=== PATIENT | female | born 1980 | race Caucasian/White ===

== ENCOUNTER 2016-09-10 13:34 | Inpatient (IN) | payer OTHER, SELFPAY ==
[2016-09-10] MEDS ORDERED: Sodium Chloride 0.9% 2.5 ML Syringe FLUSH PRN (13:58)
[2016-09-10] MEDS ORDERED: Sodium Chloride 0.9% 10 ML Syringe FLUSH PRN (13:58)
[2016-09-10] MEDS ORDERED: Sodium Chloride 0.9% 1,000 ML IV ONE ×2 (14:03→17:21)
--- NOTE | 2016-09-10 14:07 | PCM.SN ---
- Free Text/Narrative Note: Called for PIV placement. Pt has a long and active IV drug use history. 20g PIV started to Lt upper arm. 8mL of blood was drawn for lab draw. Secured with tape and tegaderm.
--- NOTE | 2016-09-10 14:10 | EDM.PDOC ---
ED HPI GENERAL MEDICAL PROBLEM - General Chief Complaint: Chest Pain Stated Complaint: UNK Time Seen by Provider: 09/10/16 13:40 Source of Information: Reports: Patient History Limitations: Reports: No Limitations - History of Present Illness INITIAL COMMENTS - FREE TEXT/NARRATIVE: History of present illness: Patient resulting today with complaints of palpitations and chest pain. Patient acknowledges that she did have meth approximately 12 hours ago but currently is not taking any. Patient indicates she thinks that she might have infection in her blood she indicates she thinks she has staff. Review of systems: As per history of present illness and below otherwise all systems reviewed and negative. Past medical history: As per history of present illness and as reviewed below otherwise noncontributory. Surgical history: As per history of present illness and as reviewed below otherwise noncontributory. Social history: No reported history of drug or alcohol abuse. Family history: As per history of present illness and as reviewed below otherwise noncontributory. Physical exam: HEENT: Atraumatic, normocephalic, pupils reactive, negative for conjunctival pallor or scleral icterus, mucous membranes moist, throat clear, neck supple, nontender, trachea midline. Lungs: Clear to auscultation, breath sounds equal bilaterally, chest nontender. Heart: S1S2, regular, negative for clicks, rubs, or JVD. Abdomen: Soft, nondistended, nontender. Negative for masses or hepatosplenomegaly. Negative for costovertebral tenderness. Pelvis: Stable nontender. Genitourinary: Deferred. Rectal: Deferred. Extremities: Atraumatic, negative for cords or calf pain. Neurovascular unremarkable. Neuro: Awake, alert, oriented. Cranial nerves II through XII unremarkable. Cerebellum unremarkable. Motor and sensory unremarkable throughout. Exam nonfocal. Diagnostics: [CBC, CMP, troponin, EKG, lactate, amylase, lipase, chest x-ray] Therapeutics: [IV fluid] Impression: [Leukocytosis, positive lactate, r/o sepsis r/o endocarditis] Plan: [admit to observation ] Definitive disposition and diagnosis as appropriate pending reevaluation and review of above. Back between shoulders Pain Score (Numeric/FACES): 5 - Related Data Allergies Allergy/AdvReac Type Severity Reaction Status Date / Time codeine Allergy Shortness Verified 09/10/16 13:47 of Breath Penicillins Allergy Anaphylactic Verified 09/10/16 13:47 Shock sulfamethoxazole Allergy Hives Verified 09/10/16 13:47 [From Bactrim] trimethoprim [From Bactrim] Allergy Hives Verified 09/10/16 13:47 Home Meds: Home Meds Insulin Aspart [Novolog] 0 unit SQ DAILY 09/10/16 [History] Past Medical History HEENT History: Reports: Other (See Below) Other HEENT History: missing teeth Cardiovascular History: Reports: Bacterial Endocarditis, Cardiomyopathy, CO, Other (See Below) Other Cardiovascular History: Mitral Valve Prolapse Respiratory History: Reports: None Gastrointestinal History: Reports: Cholelithiasis Other Genitourinary History: polycystic kidney disease [employer] History: Reports: None Musculoskeletal History: Reports: Other (See Below) Other Musculoskeletal History: chronic hip pain Neurological History: Reports: Seizure Psychiatric History: Reports: Addiction Endocrine/Metabolic History: Reports: Diabetes, Type I Hematologic History: Reports: None, Other (See Below) Other Hematologic History: pt reports low white blood cell count Oncologic (Cancer) History: Reports: Breast Dermatologic History: Reports: Cellulitis, Chronic Cellulitis - Infectious Disease History Infectious Disease History: Reports: MRSA, Other (See Below) Other Infectious Disease History: MRSS - Past Surgical History Head Surgeries/Procedures: Reports: None Female Surgical History: Reports: Ureteral Stent Oncologic Surgical History: Reports: Lumpectomy Other Oncologic Surgeries/Procedures: left breast lumpectomy Social & Family History - Family History Family Medical History: Noncontributory - Tobacco Use Smoking Status *Q: Current Every Day Smoker Years of Tobacco use: 20 Packs/Tins Daily: 1 - Recreational Drug Use Recreational Drug Use: Yes Drug Use in Last 12 Months: Yes Recreational Drug Type: Reports: Heroin, Methamphetamine Recreational Drug Use Frequency: Daily Recreational Drug Last Use: pt reports coming off opiates 6 days ago ED ROS GENERAL - Review of Systems Review Of Systems: See Below (See history of present illness) ED EXAM, GENERAL - Physical Exam Exam: See Below (See history of present illness) Course - Vital Signs Last Recorded V/S: Last Vital Signs Temp 37.2 C 09/10/16 13:48 Pulse 120 H 09/10/16 13:48 Resp 20 09/10/16 13:48 BP 142/91 H 09/10/16 13:48 Pulse Ox 100 09/10/16 13:48 - Orders/Labs/Meds Orders: Active Orders 24 hr Category Date Time Status Cardiac Monitoring [RC] . DIRECTED Care 09/10/16 13:58 Active EKG Documentation Completion [RC] STAT Care 09/10/16 13:58 Active Oxygen Therapy [RC] ASDIRECTED Care 09/10/16 13:58 Active Pulse Oximetry [RC] ASDIRECTED Care 09/10/16 13:58 Active Chest 1V Frontal [CR] Stat Exams 09/10/16 13:58 Ordered CULTURE BLOOD [BC] Stat Lab 09/10/16 14:27 Received CULTURE BLOOD [BC] Stat Lab 09/10/16 15:09 Received HCG QUALITATIVE,SERUM [CHEM] Stat Lab 09/10/16 15:23 Ordered UA W/MICROSCOPIC [URIN] Stat Lab 09/10/16 13:58 Uncollected Sodium Chloride 0.9% [Saline Flush] Med 09/10/16 13:58 Active 10 ml FLUSH ASDIRECTED PRN Sodium Chloride 0.9% [Saline Flush] Med 09/10/16 13:58 Active 2.5 ml FLUSH ASDIRECTED PRN Vancomycin [Vancocin] 1 gm Med 09/10/16 14:48 Active Sodium Chloride 0.9% [Normal Saline] 250 ml IV ONETIME Blood Culture x2 Reflex Set [OM.PC] Stat Oth 09/10/16 14:47 Ordered Saline Lock Insert [OM.PC] Stat Oth 09/10/16 13:58 Ordered Medication Orders Vancomycin HCl 1 gm/ Sodium (Chloride) 250 mls @ 250 mls/hr IV ONETIME ONE Stop: 09/10/16 15:47 Sodium Chloride (Saline Flush) 10 ml FLUSH ASDIRECTED PRN PRN Reason: Keep Vein Open Sodium Chloride (Saline Flush) 2.5 ml FLUSH ASDIRECTED PRN PRN Reason: Keep Vein Open Labs: Laboratory Tests 09/10/16 09/10/16 09/10/16 Range/Units 13:58 14:04 14:04 WBC 11.28 H (4.0-11.0) K/uL RBC 4.50 (4.30-5.90) M/uL Hgb 13.3 (12.0-16.0) g/dL Hct 40.6 (36.0-46.0) % MCV 90.2 (80.0-98.0) fL MCH 29.6 (27.0-32.0) pg MCHC 32.8 (31.0-37.0) g/dL RDW Std Deviation 43.9 (28.0-62.0) fl RDW Coeff of Gibran 13 (11.0-15.0) % Plt Count 216 (150-400) K/uL MPV 10.60 (7.40-12.00) fL Neut % (Auto) 79.3 (48.0-80.0) % Lymph % (Auto) 8.8 L (16.0-40.0) % Hanson % (Auto) 11.3 (0.0-15.0) % Eos % (Auto) 0.4 (0.0-7.0) % Baso % (Auto) 0.2 (0.0-1.5) % Neut # (Auto) 9.0 H (1.4-5.7) K/uL Lymph # (Auto) 1.0 (0.6-2.4) K/uL Hanson # (Auto) 1.3 H (0.0-0.8) K/uL Eos # (Auto) 0.0 (0.0-0.7) K/uL Baso # (Auto) 0.0 (0.0-0.1) K/uL Nucleated RBC % 0.0 /100WBC Nucleated RBCs # 0 K/uL INR (0.86-1.11) Lactate (0.20-2.00) mmol/L Sodium 135 L (136-146) mmol/L Potassium 3.8 (3.5-5.1) mmol/L Chloride 107 (98-110) mmol/L Carbon Dioxide 19 L (21-31) mmol/L BUN 7 (6.0-23.0) mg/dL Creatinine 0.9 (0.6-1.5) mg/dL Est Cr Clr Drug Dosing 95.49 mL/min Estimated GFR (MDRD) > 60.0 ml/min Glucose 100 (60-110) mg/dL POC Glucose 126 H (60-110) mg/dL Calcium 8.9 (8.8-10.8) mg/dL Total Bilirubin 0.4 (0.1-1.5) mg/dL AST 12 (5-40) IU/L ALT 13 (8-54) IU/L Alkaline Phosphatase 81 (40-150) Troponin I (0.0-0.29) NG/ML Total Protein 6.8 (6.0-8.0) g/dL Albumin 3.8 (3.5-5.0) g/dL Globulin 3.0 (2.0-3.5) g/dL Albumin/Globulin Ratio 1.3 (1.3-2.8) 09/10/16 09/10/16 09/10/16 Range/Units 14:04 14:04 14:27 WBC (4.0-11.0) K/uL RBC (4.30-5.90) M/uL Hgb (12.0-16.0) g/dL Hct (36.0-46.0) % MCV (80.0-98.0) fL MCH (27.0-32.0) pg MCHC (31.0-37.0) g/dL RDW Std Deviation (28.0-62.0) fl RDW Coeff of Gibran (11.0-15.0) % Plt Count (150-400) K/uL MPV (7.40-12.00) fL Neut % (Auto) (48.0-80.0) % Lymph % (Auto) (16.0-40.0) % Hanson % (Auto) (0.0-15.0) % Eos % (Auto) (0.0-7.0) % Baso % (Auto) (0.0-1.5) % Neut # (Auto) (1.4-5.7) K/uL Lymph # (Auto) (0.6-2.4) K/uL Hanson # (Auto) (0.0-0.8) K/uL Eos # (Auto) (0.0-0.7) K/uL Baso # (Auto) (0.0-0.1) K/uL Nucleated RBC % /100WBC Nucleated RBCs # K/uL INR 1.05 (0.86-1.11) Lactate 2.7 H (0.20-2.00) mmol/L Sodium (136-146) mmol/L Potassium (3.5-5.1) mmol/L Chloride (98-110) mmol/L Carbon Dioxide (21-31) mmol/L BUN (6.0-23.0) mg/dL Creatinine (0.6-1.5) mg/dL Est Cr Clr Drug Dosing mL/min Estimated GFR (MDRD) ml/min Glucose (60-110) mg/dL POC Glucose (60-110) mg/dL Calcium (8.8-10.8) mg/dL Total Bilirubin (0.1-1.5) mg/dL AST (5-40) IU/L ALT (8-54) IU/L Alkaline Phosphatase (40-150) Troponin I < 0.10 (0.0-0.29) NG/ML Total Protein (6.0-8.0) g/dL Albumin (3.5-5.0) g/dL Globulin (2.0-3.5) g/dL Albumin/Globulin Ratio (1.3-2.8) Meds: Medications Generic Name Dose Route Start Last Admin Trade Name Freq PRN Reason Stop Dose Admin Vancomycin HCl 1 gm/ Sodium 250 mls @ 250 mls/hr 09/10/16 14:48 Chloride IV 09/10/16 15:47 ONETIME ONE Sodium Chloride 10 ml 09/10/16 13:58 Saline Flush FLUSH ASDIRECTED PRN Keep Vein Open Sodium Chloride 2.5 ml 09/10/16 13:58 Saline Flush FLUSH ASDIRECTED PRN Keep Vein Open Discontinued Medications Generic Name Dose Route Start Last Admin Trade Name Freq PRN Reason Stop Dose Admin Sodium Chloride 1,000 mls @ 999 mls/hr 09/10/16 14:03 09/10/16 15:23 Normal Saline IV 09/10/16 15:03 999 mls/hr STAT ONE Administration Piperacillin Sod/Tazobactam 50 mls @ 100 mls/hr 09/10/16 14:49 Sod 3.375 gm/ Sodium Chloride IV 09/10/16 15:18 ONETIME ONE Departure - Departure Time of Disposition: 15:37 Disposition: Refer to Observation Condition: Good Clinical Impression: IV drug user Endocarditis Qualifiers: Endocarditis type: infective Infective endocarditis organism: bacterial Sepsis Qualifiers: Sepsis type: sepsis due to unspecified organism Qualified Code(s): A41.9 - Sepsis, unspecified organism Forms: ED Department Discharge - My Orders Last 24 Hours: My Active Orders 09/10/16 13:58 Cardiac Monitoring [RC] . DIRECTED EKG Documentation Completion [RC] STAT Oxygen Therapy [RC] ASDIRECTED Pulse Oximetry [RC] ASDIRECTED Chest 1V Frontal [CR] Stat UA W/MICROSCOPIC [URIN] Stat Sodium Chloride 0.9% [Saline Flush] 10 ml FLUSH ASDIRECTED PRN Sodium Chloride 0.9% [Saline Flush] 2.5 ml FLUSH ASDIRECTED PRN Saline Lock Insert [OM.PC] Stat 09/10/16 14:27 CULTURE BLOOD [BC] Stat 09/10/16 14:47 Blood Culture x2 Reflex Set [OM.PC] Stat 09/10/16 14:48 Vancomycin [Vancocin] 1 gm Sodium Chloride 0.9% [Normal Saline] 250 ml IV ONETIME 09/10/16 15:09 CULTURE BLOOD [BC] Stat 09/10/16 15:23 HCG QUALITATIVE,SERUM [CHEM] Stat - Assessment/Plan Last 24 Hours: My Active Orders 09/10/16 13:58 Cardiac Monitoring [RC] . DIRECTED EKG Documentation Completion [RC] STAT Oxygen Therapy [RC] ASDIRECTED Pulse Oximetry [RC] ASDIRECTED Chest 1V Frontal [CR] Stat UA W/MICROSCOPIC [URIN] Stat Sodium Chloride 0.9% [Saline Flush] 10 ml FLUSH ASDIRECTED PRN Sodium Chloride 0.9% [Saline Flush] 2.5 ml FLUSH ASDIRECTED PRN Saline Lock Insert [OM.PC] Stat 09/10/16 14:27 CULTURE BLOOD [BC] Stat 09/10/16 14:47 Blood Culture x2 Reflex Set [OM.PC] Stat 09/10/16 14:48 Vancomycin [Vancocin] 1 gm Sodium Chloride 0.9% [Normal Saline] 250 ml IV ONETIME 09/10/16 15:09 CULTURE BLOOD [BC] Stat 09/10/16 15:23 HCG QUALITATIVE,SERUM [CHEM] Stat
[2016-09-10 14:45] LABS: CHLORIDE,CL 107 mmol/L (98-110); SODIUM,NA 135 mmol/L (136-146)
[2016-09-10] MEDS ORDERED: Piperacillin/Tazobactam 3.375 GM in Sodium Chloride 0.9% 50 ML IV ONE (14:49)
--- NOTE | 2016-09-10 16:11 | PCM.HP ---
Addendum entered and electronically signed by Carleen Atkinson NP 09/10/16 18: 22: With better positioning and patient more calm, Grade 2 systolic murmur heard, does have hx MVP Original Note: H&P History of Present Illness - General Date of Service: 09/10/16 Admit Problem/Dx: Admission Diagnosis/Problem Admission Diagnosis/Problem Fever, leukocytosis Source of Information: Patient History Limitations: Reports: No Limitations - History of Present Illness Initial Comments - Free Text/Narative: This35 year old female with pmh of current IV drug abuse, multiple endocarditis diagnoses, DM type 2, and grand mal seizures presented to the ED with chest pressure and palpitations along with fevers at home. She reports he fever was as high 103 F. She reports she used [place]het[place] early this morning around 1 am. She reports the chest pressure hurts to lay flat, but doesn't improve with any positioning. She reports dyspnea, "I feel like I am drowning, when I lay back". She confirms bilateral flank pain and pain to upper back. She reports the inability to urinate recently and if she does it looks "like Ovaltine" and smells like infection per her report. Her last episode of bacteremia and endocarditis was 8 months ago, she follows with Dr. Sanders, ID, and Dr. Paz, Cardiology in [place]. In ED WBC 11,280, NA 135, Lactate 2.7, troponin negative. EKG ST 117, no block noted and no ST segment changes. CXR negative. She was treated with Vancomycin in ED. She will be admitted for sepsis, UTI with possible pyelonephritis. Back between shoulders Pain Score (Numeric/FACES): 5 - Related Data Allergies/Adverse Reactions: Allergies Allergy/AdvReac Type Severity Reaction Status Date / Time codeine Allergy Shortness Verified 09/10/16 13:47 of Breath Penicillins Allergy Anaphylactic Verified 09/10/16 13:47 Shock sulfamethoxazole Allergy Hives Verified 09/10/16 13:47 [From Bactrim] trimethoprim [From Bactrim] Allergy Hives Verified 09/10/16 13:47 Home Medications: Home Meds Insulin Aspart [Novolog] 0 unit SQ DAILY 09/10/16 [History] Past Medical History HEENT History: Reports: Other (See Below) Other HEENT History: missing teeth Cardiovascular History: Reports: Bacterial Endocarditis, Cardiomyopathy, Other ( See Below) Other Cardiovascular History: Mitral Valve Prolapse Respiratory History: Reports: None Gastrointestinal History: Reports: Cholelithiasis Other Genitourinary History: polycystic kidney disease [employer]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 Musculoskeletal History: Reports: Other (See Below) Other Musculoskeletal History: chronic hip pain Neurological History: Reports: Seizure Psychiatric History: Reports: Addiction, Anxiety Endocrine/Metabolic History: Reports: Diabetes, Type I Hematologic History: Reports: None Oncologic (Cancer) History: Reports: Breast Dermatologic History: Reports: Cellulitis, Chronic Cellulitis - Infectious Disease History Infectious Disease History: Reports: MRSA, Other (See Below) Other Infectious Disease History: MSSA - Past Surgical History Head Surgeries/Procedures: Reports: None Female Surgical History: Reports: Ureteral Stent Oncologic Surgical History: Reports: Lumpectomy Other Oncologic Surgeries/Procedures: left breast lumpectomy Social & Family History - Family History Family Medical History: Noncontributory - Tobacco Use Smoking Status *Q: Current Every Day Smoker Years of Tobacco use: 20 Packs/Tins Daily: 1 - Recreational Drug Use Recreational Drug Use: Yes Drug Use in Last 12 Months: Yes Recreational Drug Type: Reports: Heroin (last used 8 weeks ago), Methamphetamine (last used 09/10/16 0100) Recreational Drug Use Frequency: Daily Recreational Drug Last Use: pt reports coming off opiates 6 days ago H&P Review of Systems - Review of Systems: Review Of Systems: See Below General: Reports: Fever, Chills, Malaise HEENT: Reports: No Symptoms. Denies: Headaches, Sore Throat Pulmonary: Reports: Shortness of Breath. Denies: Cough, Sputum Cardiovascular: Reports: Chest Pain, Palpitations. Denies: Edema Gastrointestinal: Denies: Abdominal Pain, Diarrhea, Nausea, Vomiting Genitourinary: Reports: Dysuria, Retention, Other (dark urine) Musculoskeletal: Reports: No Symptoms Skin: Reports: Erythema (surrounding injection sites to L arm) Psychiatric: Reports: Anxiety Hematologic/Lymphatic: Reports: No Symptoms Immunologic: Reports: No Symptoms Exam - Exam Exam: See Below - Vital Signs Vital Signs: Last Vital Signs Temp 98.9 F 09/10/16 13:48 Pulse 120 H 09/10/16 13:48 Resp 20 09/10/16 13:48 BP 142/91 H 09/10/16 13:48 Pulse Ox 100 09/10/16 13:48 Weight: 83.5 kg - Exam General: Alert, Oriented, Cooperative, Other (disheveled in appearance, eyes half open. was just given Ativan prior to interview. ) HEENT: Conjunctiva Clear, Mucosa Moist & [place] Neck: Supple. No: Lymphadenopathy Lungs: Clear to Auscultation, Normal Respiratory Effort Cardiovascular: Regular Rhythm, Tachycardia. No: Systolic Murmur Abdomen: Normal Bowel Sounds, Soft. No: Distention, Guarding, Rigidity, Tenderness Back Exam: CVA Tenderness (L), CVA Tenderness (R) Extremities: Normal Inspection, Normal Pulses Skin: Wound (L arm and hand has multiple abrasions, scrapes and injection sites. small amount or erythema noted, no drainage and no fluctuant areas.) Neuro Extensive - Mental Status: Alert, Oriented x3, Normal Mood/Affect, Normal Cognition Psychiatric: Alert, Anxious - Patient Data Result Diagrams: 09/10/16 14:04 09/10/16 14:04 EKG INTERPRETATION EKG Date: 09/10/16 Rate (Beats/Min): 117 [place]: Normal QRS: Normal ST-T: Normal QT: Normal *Q Meaningful Use (ADM) - VTE *Q VTE Criteria *Q: - VTE Risk Assess *Q Each Risk Factor Represents 1 Point: Age 41 - 59 years, Sepsis, Less than 1 Month Total Score 1 Point Risk Factors: 2 Each Risk Factor Represents 2 Points: None Total Score 2 Point Risk Factors: 0 Each Risk Factor Represents 3 Points: None Total Score 3 Point Risk Factors: 0 Each Risk Factor Represents 5 Points: None Total Score 5 Point Risk Factors: 0 Venous Thromboembolism Risk Factor Score *Q: 2 - Stroke *Q Stroke Criteria *Q: - AMI *Q AMI Criteria *Q: - Problem List (1) Pyelonephritis SNOMED Code(s): 76962592 ICD Code: N12 - TUBULO-INTERSTITIAL NEPHRITIS, NOT SPCF ACUTE OR CHRONIC Status: Acute Current Visit: Yes (2) Sepsis SNOMED Code(s): 12199469 ICD Code: A41.9 - SEPSIS, UNSPECIFIED ORGANISM Status: Acute Current Visit: Yes Qualifiers: Sepsis type: sepsis due to unspecified organism Qualified Code(s): A41.9 - Sepsis, unspecified organism (3) Chest pain SNOMED Code(s): 31535920 ICD Code: R07.9 - CHEST PAIN, UNSPECIFIED Status: Acute Current Visit: No Qualifiers: Chest pain type: unspecified Qualified Code(s): R07.9 - Chest pain, unspecified (4) IV drug user SNOMED Code(s): 566474927 ICD Code: F19.90 - OTHER PSYCHOACTIVE SUBSTANCE USE, UNSPECIFIED, UNCOMPLICATED Status: Chronic Current Visit: Yes Problem List Initiated/Reviewed/Updated: Yes Orders Last 24hrs: Medication Orders Sodium Chloride (Saline Flush) 10 ml FLUSH ASDIRECTED PRN PRN Reason: Keep Vein Open Sodium Chloride (Saline Flush) 2.5 ml FLUSH ASDIRECTED PRN PRN Reason: Keep Vein Open Assessment/Plan Comment:: This 35 year old female admitted with sepsis, UTI with suspected pyelonephritis and hx of endocarditis 1. Sepsis: IV fluid resuscitation, 2 boluses since ED. Will continue IVFs at NS 125. Trend Lactate. BC pending. Will treat with Vancomycin and Cefepime, due to history of endocarditis and MRSA bacteremia. 2. UTI: suspected pyelonephritis, Add Cefepime. UC pending 3. DM type 1: Continue Novolog SSI with meals VTE prophylaxis: Lovenox.
[2016-09-10] MEDS ORDERED: Ondansetron 4 MG/2 ML SDV IVPUSH PRN (16:12)
[2016-09-10] MEDS ORDERED: Ondansetron 4 MG/2 ML SDV IVPUSH ONE (16:18)
[2016-09-10] MEDS ORDERED: LORazepam 2 MG/ML MDV IVPUSH ONE (16:18)
--- NOTE | 2016-09-10 16:27 | CR ---
EXAMINATION: Portable chest radiograph. HISTORY: Chest pain. FINDINGS: The trachea is midline. The cardiomediastinal silhouette is within normal limits. No pulmonary infil trates, effusions or pneumothorax. Osseous structures appear unremarkable. IMPRESSION: No acute cardiopulmonary process.
[2016-09-10] MEDS ORDERED: Enoxaparin 40 MG/0.4 ML Syringe SUBCUT SCH (16:35)
[2016-09-10] MEDS ORDERED: Levofloxacin/Dextrose 5%-Water 750 MG in Premix Bag 1 BAG IV SCH (17:15)
[2016-09-10] MEDS: Sodium Chloride 0.9% 1,000 ML IV SCH (19:18)
[2016-09-10] MEDS: Cefepime 2 GM in Premix Bag 1 BAG IV SCH (19:19)
[2016-09-10] MEDS: Acetaminophen 325 MG Tab PO PRN (19:48)
[2016-09-10] MEDS ORDERED: Ketorolac 30 MG/ML SDV IVPUSH PRN (21:52)
[2016-09-11] MEDS: Acetaminophen 325 MG Tab PO PRN ×2 (00:15→04:17)
[2016-09-11] MEDS: Cefepime 2 GM in Premix Bag 1 BAG IV SCH (03:00)
[2016-09-11] MEDS: Sodium Chloride 0.9% 1,000 ML IV SCH (04:12)
[2016-09-11] MEDS ORDERED: Insulin Aspart 100 Units/ML 3 ML Pen SUBCUT SCH (07:30)
[2016-09-11 07:45] LABS: CHLORIDE,CL 110 mmol/L (98-110); SODIUM,NA 134 mmol/L (136-146)
[2016-09-11 09:16] VITALS: BP 97/55
--- NOTE | 2016-09-11 14:07 | PCM.DCSUM1 ---
Discharge Summary - Hospital Course Brief History: This 35 year old female with pmh of current IV drug abuse, multiple endocarditis diagnoses, DM type 1, and grand mal seizures presented to the ED with chest pressure and palpitations along with fevers at home. She reports he fever was as high 103 F. She reports she used Methamphetmines early this morning around 1 am. She reports the chest pressure hurts to lay flat, but doesn't improve with any positioning. She reports dyspnea, "I feel like I am drowning, when I lay back". She confirms bilateral flank pain and pain to upper back. She reports the inability to urinate recently and if she does it looks "like Ovaltine" and smells like infection per her report. Her last episode of bacteremia and endocarditis was 8 months ago, she follows with Dr. Sanders, ID, and Dr. Paz, Cardiology in [place]. In ED WBC 11,280, NA 135, Lactate 2.7, troponin negative. EKG ST 117, no block noted and no ST segment changes. CXR negative. She was treated with Vancomycin in ED. She will be admitted for sepsis , UTI with possible pyelonephritis. - Discharge Data Discharge Date: 09/11/16 Discharge Disposition: Against Medical Advice 07 Condition: Fair - Discharge Diagnosis/Problem(s) (1) Pyelonephritis SNOMED Code(s): 71341959 ICD Code: N12 - TUBULO-INTERSTITIAL NEPHRITIS, NOT SPCF ACUTE OR CHRONIC Status: Acute (2) Sepsis SNOMED Code(s): 42270699 ICD Code: A41.9 - SEPSIS, UNSPECIFIED ORGANISM Status: Acute Qualifiers: Sepsis type: sepsis due to unspecified organism Qualified Code(s): A41.9 - Sepsis, unspecified organism (3) Chest pain SNOMED Code(s): 40935885 ICD Code: R07.9 - CHEST PAIN, UNSPECIFIED Status: Acute Qualifiers: Chest pain type: unspecified Qualified Code(s): R07.9 - Chest pain, unspecified (4) IV drug user SNOMED Code(s): 514534872 ICD Code: F19.90 - OTHER PSYCHOACTIVE SUBSTANCE USE, UNSPECIFIED, UNCOMPLICATED Status: Chronic (5) Bacteremia SNOMED Code(s): 7444680 ICD Code: R78.81 - BACTEREMIA Status: Acute - Discharge Plan Prescriptions/Med Rec: Clindamycin Hcl [IJD: Clindamycin HCl] 300 mg PO .EVERY 6 HOURS #56 cap Levofloxacin [Levaquin] 750 mg PO DAILY #14 tablet Home Medications: Home Meds Insulin Aspart [Novolog Flexpen] 0 unit SQ DAILY 09/10/16 [History] Clindamycin Hcl [IJD: Clindamycin HCl] 300 mg PO .EVERY 6 HOURS #56 cap [Rx] Levofloxacin [Levaquin] 750 mg PO DAILY #14 tablet 09/11/16 [Rx] Forms: ED Department Discharge Referrals: PCP,None [Primary Care Provider] - - Discharge Summary/Plan Comment DC Time >30 min.: No Discharge Summary/Plan Comment: Alie left AMA this morning. She kept saying I want to go home, I want a cigarette. "I hurt all over and I'm hot." She wanted to sign out AMA and leave. She took her own IV out and took Telemetry monitoring off and get dressed. Dr. Garcia did speak with her as her left. She wanted to smoke and then reported she would return for antibiotics orally. Prescriptions written for Levaquin and Clindamycin, at this time she has yet to return and nursing unable to get a hold of her via telephone. She was encouraged to stay due to bacteremia and sepsis, as well as the poor outcomes, including , she continued to want to be left alone and wanting to go home. Patient then left AMA. - Patient Data Vitals - Most Recent: Last Vital Signs Temp 98.2 F 09/11/16 09:15 Pulse 97 09/11/16 09:15 Resp 18 09/11/16 09:15 BP 97/55 L 09/11/16 09:15 Pulse Ox 96 09/11/16 09:15 Weight - Most Recent: 83.5 kg I&O - Last 24 hours: Intake & Output 09/10/16 09/11/16 09/11/16 22:59 06:59 14:59 Intake Total 3650 1350 1169 Output Total 300 3600 250 Balance 3350 -2250 919 Lab Results - Last 24 hrs: Laboratory Results - last 24 hr 09/10/16 09/10/16 09/11/16 Range/Units 17:17 19:07 06:55 WBC (4.0-11.0) K/uL RBC (4.30-5.90) M/uL Hgb (12.0-16.0) g/dL Hct (36.0-46.0) % MCV (80.0-98.0) fL MCH (27.0-32.0) pg MCHC (31.0-37.0) g/dL RDW Std Deviation (28.0-62.0) fl RDW Coeff of Gibran (11.0-15.0) % Plt Count (150-400) K/uL MPV (7.40-12.00) fL Add Manual Diff Neutrophils % (Manual) (48.0-80.0) % Band Neutrophils % % Lymphocytes % (Manual) (16.0-40.0) % Monocytes % (Manual) (0.0-15.0) % Nucleated RBC % /100WBC Absolute Seg Neuts Band Neutrophils # Lymphocytes # (Manual) Monocytes # (Manual) Nucleated RBCs # K/uL Lactate 1.1 (0.20-2.00) mmol/L Sodium 134 L (136-146) mmol/L Potassium 3.9 (3.5-5.1) mmol/L Chloride 110 (98-110) mmol/L Carbon Dioxide 19 L (21-31) mmol/L BUN 4 L (6.0-23.0) mg/dL Creatinine 0.7 (0.6-1.5) mg/dL Est Cr Clr Drug Dosing 122.78 mL/min Estimated GFR (MDRD) > 60.0 ml/min Glucose 102 (60-110) mg/dL POC Glucose 100 (60-110) mg/dL Calcium 8.2 L (8.8-10.8) mg/dL 09/11/16 09/11/16 Range/Units 07:12 08:07 WBC 8.11 (4.0-11.0) K/uL RBC 4.33 (4.30-5.90) M/uL Hgb 13.0 (12.0-16.0) g/dL Hct 38.3 (36.0-46.0) % MCV 88.5 (80.0-98.0) fL MCH 30.0 (27.0-32.0) pg MCHC 33.9 (31.0-37.0) g/dL RDW Std Deviation 43.3 (28.0-62.0) fl RDW Coeff of Gibran 13 (11.0-15.0) % Plt Count 176 (150-400) K/uL MPV 10.30 (7.40-12.00) fL Add Manual Diff YES Neutrophils % (Manual) 59 (48.0-80.0) % Band Neutrophils % 8 % Lymphocytes % (Manual) 20 (16.0-40.0) % Monocytes % (Manual) 13 (0.0-15.0) % Nucleated RBC % 0.0 /100WBC Absolute Seg Neuts 4.8 Band Neutrophils # 0.6 Lymphocytes # (Manual) 1.6 Monocytes # (Manual) 1.1 Nucleated RBCs # 0 K/uL Lactate (0.20-2.00) mmol/L Sodium (136-146) mmol/L Potassium (3.5-5.1) mmol/L Chloride (98-110) mmol/L Carbon Dioxide (21-31) mmol/L BUN (6.0-23.0) mg/dL Creatinine (0.6-1.5) mg/dL Est Cr Clr Drug Dosing mL/min Estimated GFR (MDRD) ml/min Glucose (60-110) mg/dL POC Glucose 104 (60-110) mg/dL Calcium (8.8-10.8) mg/dL Med Orders - Current: Current Medications Discontinued Medications Acetaminophen (Tylenol) 650 mg PO Q4H PRN PRN Reason: Pain/Fever Last Admin: 09/11/16 04:17 Dose: 650 mg Enoxaparin Sodium (Lovenox) 40 mg SUBCUT Q24H [facility] Last Admin: 09/10/16 17:39 Dose: 40 mg Sodium Chloride (Normal Saline) 1,000 mls @ 999 mls/hr IV STAT ONE Stop: 09/10/16 15:03 Last Infusion: 09/10/16 16:15 Dose: 250 mls/hr Vancomycin HCl 1 gm/ Sodium (Chloride) 250 mls @ 250 mls/hr IV ONETIME ONE Stop: 09/10/16 15:47 Last Admin: 09/10/16 16:14 Dose: 250 mls/hr Piperacillin Sod/Tazobactam (Sod 3.375 gm/ Sodium Chloride) 50 mls @ 100 mls/ hr IV ONETIME ONE Stop: 09/10/16 15:18 Last Admin: 09/10/16 16:13 Dose: Not Given Sodium Chloride (Normal Saline) 1,000 mls @ 125 mls/hr IV ASDIRECTED [facility] [place] Last Admin: 09/11/16 04:12 Dose: 125 mls/hr Levofloxacin/Dextrose 750 mg/ (Premix) 150 mls @ 100 mls/hr IV Q24H [facility] [place] Last Admin: 09/10/16 17:41 Dose: 100 mls/hr Vancomycin HCl 1 gm/ Sodium (Chloride) 250 mls @ 166.667 mls/hr IV Q8H [facility] [place] Last Admin: 09/11/16 08:35 Dose: 166.667 mls/hr Sodium Chloride (Normal Saline) 1,000 mls @ 999 mls/hr IV .Bolus ONE Stop: 09/10/16 18:21 Last Admin: 09/10/16 17:38 Dose: 999 mls/hr Cefepime HCl 2 gm/ Premix 50 mls @ 100 mls/hr IV Q8H [facility] [place] Last Admin: 09/11/16 03:00 Dose: 100 mls/hr Insulin Aspart (Novolog) 0 unit SUBCUT TIDAC [facility] [place] PRN Reason: Protocol Last Admin: 09/11/16 08:10 Dose: Not Given Ketorolac Tromethamine (Toradol) 30 mg IVPUSH Q6H PRN PRN Reason: Pain Lorazepam (Ativan) 2 mg IVPUSH ONETIME ONE Stop: 09/10/16 16:19 Last Admin: 09/10/16 16:24 Dose: 2 mg Ondansetron HCl (Zofran) 8 mg IVPUSH ONETIME ONE Stop: 09/10/16 16:19 Last Admin: 09/10/16 16:23 Dose: 8 mg Ondansetron HCl (Zofran) 4 mg IVPUSH Q4H PRN PRN Reason: Nausea Sodium Chloride (Saline Flush) 10 ml FLUSH ASDIRECTED PRN PRN Reason: Keep Vein Open Sodium Chloride (Saline Flush) 2.5 ml FLUSH ASDIRECTED PRN PRN Reason: Keep Vein Open Vancomycin HCl (Pharmacy To Dose - Vancomycin) 1 dose .XX ASDIRECTED [facility] [place] *Q Meaningful Use (DIS) - VTE *Q VTE Criteria *Q: - Stroke *Q Stroke Criteria *Q: - AMI *Q AMI Criteria *Q:
--- NOTE | 2016-09-11 17:04 | US ---
EXAM DATE: 09/10/16 PATIENT'S AGE: 35 Patient: CHERELLE ACOSTA Facility: [place], [place] Site . Site : [id number] Study: US Abdomen -09/11/2016 9:30:00 AM Ordering Physician: Jose Rondon Final Report: HISTORY: Pyelonephritis. Technique: Grayscale ultrasound of the kidneys and bladder. Comparison: None. Findings: Right kidney measures 11.7 cm in long axis. Normal parenchymal thickness and echogenicity. No mass. No calculi. No hydronephrosis. Left kidney measures 12.5 cm in long axis. Normal parenchymal thickness and echogenicity. No mass. No calculi. No hydronephrosis. Bladder is unremarkable. Ureteral jet seen bilaterally. Impression: Normal ultrasound of the kidneys and bladder. Dictated by Michael Sykes MD @ Sep 11 2016 2:15PM (Electronic Signature) Report Signed by Proxy. GEENA
--- NOTE | 2016-09-14 16:00 | ECHO ---
EXAM DATE: 09/10/16 PATIENT'S AGE: 35 The echocardiogram report can be seen in this patient's EMR (Electronic Medical Record) in the Reports section. The report has also been scanned into PACS. GEENA
== END 2016-09-11 10:12 | disposition left against medical advice (07) | DRG 871 ==
LOC: MW.ED 13:34 → MW.ICU 15:37 → OBSVTOIN 15:37 → MW.ICU 16:41
PROVIDERS: ADMIT Internal Medicine; ATTEND Internal Medicine
DX: A41.9 Sepsis, unspecified organism (principal); I33.0 Acute and subacute infective endocarditis; N12 Tubulo-interstitial nephritis, not specified as acute or chronic; R78.81 Bacteremia; I42.9 Cardiomyopathy, unspecified; Q61.3 Polycystic kidney, unspecified; R07.9 Chest pain, unspecified; F19.90 Other psychoactive substance use, unspecified, uncomplicated; R01.1 Cardiac murmur, unspecified; E10.8 Type 1 diabetes mellitus with unspecified complications; G40.909 Epilepsy, unspecified, not intractable, without status epilepticus; Z88.0 Allergy status to penicillin; Z88.8 Allergy status to other drugs, medicaments and biological substances; Z79.4 Long term (current) use of insulin; F41.9 Anxiety disorder, unspecified
CPT/HCPCS: 36410; 36415; 71010; 71010-26; 76775; 76775-26; 80048; 80053; 80305; 81001; 82962; 83605; 84484; 84703; 85025; 85610; 87040; 87077; 87086; 87088; 87186; 93005; 93306; 96361; 96365; 96375; 99283; 99285-25; A9270-GY; J0692; J1650; J1956; J2060; J2405; J3370; J7040; J7050

== ENCOUNTER 2016-10-02 11:47 | Emergency (ER) | payer SELFPAY ==
--- NOTE | 2016-10-02 12:23 | EDM.PDOC ---
ED HPI GENERAL MEDICAL PROBLEM - General Chief Complaint: Fever Stated Complaint: FEVER Time Seen by Provider: 10/02/16 12:10 Source of Information: Reports: Patient History Limitations: Reports: No Limitations - History of Present Illness INITIAL COMMENTS - FREE TEXT/NARRATIVE: HISTORY AND PHYSICAL: History of present illness: [Patient is well known to this emergency room and is a known IV drug user. Today she is complaining of dark bloody urine and low back pain. No pain with urination, burning or frequency. She feels feverish and complains of pain to the IV sites on her hands and arms where she injects drugs. Patient was hospitalized on September 10 to rule out sepsis and endocarditis. She had a white count and elevated lactate at that time. Patient left AMA on September 11. She presents today for evaluation as she feels ready for medical treatment for these conditions. She feels scared that her health may be in danger and that she has a staph infection in her blood which she believes has remained untreated since hospitalization September 10. Overall feels that she has not improved since her hospitalization on September. Admits to recently using methamphetamine, heroin, marijuana, opiates, benzodiazepines, but she's not used anything for the past 3 days. She has a history of bacterial endocarditis, breast cancer, cardiomyopathy, UT, mitral valve prolapse, ureteral stent, type 1 diabetes, MRSA. ] Review of systems: As per history of present illness and below otherwise all systems reviewed and negative. Past medical history: As per history of present illness and as reviewed below otherwise noncontributory. Surgical history: As per history of present illness and as reviewed below otherwise noncontributory. Social history: No reported history of drug or alcohol abuse. Family history: As per history of present illness and as reviewed below otherwise noncontributory. Physical exam: General: Afebrile. Well developed, well nourished. Appears non-toxic. HEENT: Atraumatic, normocephalic. mucous membranes moist, "meth mouth", with missing teeth and teeth in poor repair. throat clear, neck supple, nontender. Lungs: Clear to auscultation, breath sounds equal bilaterally, chest nontender with palpation.. Heart: S1S2, regular, no murmur appreciated. Abdomen: Soft, nondistended, nontender. Negative for masses, guarding or rebound. No flank tenderness or CVA tenderness with percussion. Pelvis: Stable nontender. Genitourinary: Deferred. Rectal: Deferred. Back: Spine is nontender with palpation, no step-offs appreciated. No SI joint or hip pain with palpation. Extremities: Track alvarez present to bilateral biceps forearms and hands. Many are scabbed over. No erythema, swelling, or drainage from the sites. No tenderness with palpation of her upper and lower extremities. Lower extremities are atraumatic. negative for cords or calf pain. No cyanosis or edema to feet or lower legs. Neurovascular unremarkable. Is ambulatory without deficit. Neuro: Awake, alert, oriented. Motor and sensory unremarkable throughout. Exam nonfocal. Diagnostics: [CXR, EKG, CBC, CMP, blood cultures x 2, UA w/ micro, urine culture, urine , lactic acid] Therapeutics: [Toradol 30 mg IV, Ativan 1 mg IV, 2 L normal saline] Impression: [IV drug abuse] Plan: [WBC 10.05, lactate 2.0, sodium 135, potassium 3.9, BUN 5, creatinine 0.8. UA is clear. Urine drug screen is + for methamphetamine. Blood cultures 2 are pending. No acute findings are appreciated on today's examination. She is encouraged to discontinue all drug use. Patient is pain-free and sleeping after medications given. She remains afebrile while in the ER. Heart rate is 98 after 2 L normal saline. Discussed with her that her lab results are completely normal and recommend that she be discharged to home.] Definitive disposition and diagnosis as appropriate pending reevaluation and review of above. Chest Pain Score (Numeric/FACES): 4 right flank Pain Score (Numeric/FACES): 6 - Related Data Allergies Allergy/AdvReac Type Severity Reaction Status Date / Time codeine Allergy Shortness Verified 10/03/16 07:07 of Breath Penicillins Allergy Anaphylactic Verified 10/03/16 07:07 Shock sulfamethoxazole Allergy Hives Verified 10/03/16 07:07 [From Bactrim] trimethoprim [From Bactrim] Allergy Hives Verified 10/03/16 07:07 Home Meds: Home Meds Insulin Aspart [Novolog Flexpen] 0 unit SQ DAILY 09/10/16 [History] Past Medical History - Past Health History Medical/Surgical History: Denies Medical/Surgical History HEENT History: Reports: Other (See Below) Other HEENT History: missing teeth Cardiovascular History: Reports: Bacterial Endocarditis, Cardiomyopathy, Other ( See Below) Other Cardiovascular History: Mitral Valve Prolapse Respiratory History: Reports: None Gastrointestinal History: Reports: Cholelithiasis Other Genitourinary History: polycystic kidney disease NEGATIVE NOTCHER History: Reports: Musculoskeletal History: Reports: Other (See Below) Other Musculoskeletal History: chronic hip pain Neurological History: Reports: Seizure Psychiatric History: Reports: Addiction, Anxiety Endocrine/Metabolic History: Reports: Diabetes, Type I Hematologic History: Reports: None Other Hematologic History: pt reports low white blood cell count Oncologic (Cancer) History: Reports: Breast Dermatologic History: Reports: Cellulitis, Chronic Cellulitis - Infectious Disease History Infectious Disease History: Reports: MRSA Other Infectious Disease History: MSSA - Past Surgical History Head Surgeries/Procedures: Reports: None Female Surgical History: Reports: Ureteral Stent Oncologic Surgical History: Reports: Lumpectomy Other Oncologic Surgeries/Procedures: left breast lumpectomy Social & Family History - Family History Family Medical History: Noncontributory - Tobacco Use Smoking Status *Q: Current Every Day Smoker Years of Tobacco use: 20 Packs/Tins Daily: 1 Second Hand Smoke Exposure: Yes - Caffeine Use Caffeine Use: Reports: Coffee, Soda - Recreational Drug Use Recreational Drug Use: Yes Drug Use in Last 12 Months: Yes Recreational Drug Type: Reports: Heroin, Marijuana/Hashish Recreational Drug Use Frequency: Daily Recreational Drug Last Use: pt reports coming off opiates 6 days ago ED ROS GENERAL - Review of Systems Review Of Systems: ROS reveals no pertinent complaints other than HPI. ED EXAM, SEPSIS - Physical Exam Exam: See Below Course - Vital Signs Last Recorded V/S: Last Vital Signs Temp 98.4 F 10/02/16 18:05 Pulse 94 10/02/16 18:05 Resp 19 10/02/16 18:05 BP 121/72 10/02/16 18:05 Pulse Ox 100 10/02/16 18:05 - Orders/Labs/Meds Labs: Laboratory Tests 10/02/16 10/02/16 10/02/16 Range/Units 12:30 12:30 12:30 WBC (4.0-11.0) K/uL RBC (4.30-5.90) M/uL Hgb (12.0-16.0) g/dL Hct (36.0-46.0) % MCV (80.0-98.0) fL MCH (27.0-32.0) pg MCHC (31.0-37.0) g/dL RDW Std Deviation (28.0-62.0) fl RDW Coeff of Gibran (11.0-15.0) % Plt Count (150-400) K/uL MPV (7.40-12.00) fL Neut % (Auto) (48.0-80.0) % Lymph % (Auto) (16.0-40.0) % Stone % (Auto) (0.0-15.0) % Eos % (Auto) (0.0-7.0) % Baso % (Auto) (0.0-1.5) % Neut # (Auto) (1.4-5.7) K/uL Lymph # (Auto) (0.6-2.4) K/uL Stone # (Auto) (0.0-0.8) K/uL Eos # (Auto) (0.0-0.7) K/uL Baso # (Auto) (0.0-0.1) K/uL Nucleated RBC % /100WBC Nucleated RBCs # K/uL INR (0.86-1.11) Lactate (0.20-2.00) mmol/L Sodium (136-146) mmol/L Potassium (3.5-5.1) mmol/L Chloride (98-110) mmol/L Carbon Dioxide (21-31) mmol/L BUN (6.0-23.0) mg/dL Creatinine (0.6-1.5) mg/dL Est Cr Clr Drug Dosing mL/min Estimated GFR (MDRD) ml/min Glucose (60-110) mg/dL Calcium (8.8-10.8) mg/dL Total Bilirubin (0.1-1.5) mg/dL AST (5-40) IU/L ALT (8-54) IU/L Alkaline Phosphatase (40-150) Troponin I (0.0-0.29) NG/ML Total Protein (6.0-8.0) g/dL Albumin (3.5-5.0) g/dL Globulin (2.0-3.5) g/dL Albumin/Globulin Ratio (1.3-2.8) Urine Color YELLOW Urine Appearance CLEAR Urine pH 6.0 (5.0-8.0) Ur Specific [place] >= 1.030 (1.001-1.035) Urine Protein NEGATIVE (NEGATIVE) mg/dL Urine Glucose (UA) NEGATIVE (NEGATIVE) mg/dL Urine Ketones NEGATIVE (NEGATIVE) mg/dL Urine Occult Blood NEGATIVE (NEGATIVE) Urine Nitrite NEGATIVE (NEGATIVE) Urine Bilirubin NEGATIVE (NEGATIVE) Urine Urobilinogen 1.0 (<2.0) EU/dL Ur Leukocyte Esterase TRACE (NEGATIVE) Urine RBC 0-2 (0-2/HPF) Urine WBC 1-3 (0-5/HPF) Ur Epithelial Cells MODERATE (NONE-FEW) Amorphous Sediment FEW (NEGATIVE) Urine Bacteria FEW (NEGATIVE) Urine HCG, Qual NEGATIVE (NEGATIVE) Urine Opiates Screen NEGATIVE (NEGATIVE) Ur Oxycodone Screen NEGATIVE (NEGATIVE) Urine Methadone Screen NEGATIVE (NEGATIVE) Ur Barbiturates Screen NEGATIVE (NEGATIVE) Ur Phencyclidine Scrn NEGATIVE (NEGATIVE) Ur Amphetamine Screen NEGATIVE (NEGATIVE) U Methamphetamines Scrn POSITIVE (NEGATIVE) U Benzodiazepines Scrn NEGATIVE (NEGATIVE) U Cocaine Metab Screen NEGATIVE (NEGATIVE) U Marijuana (THC) Screen NEGATIVE (NEGATIVE) 10/02/16 10/02/16 10/02/16 Range/Units 13:12 13:12 13:12 WBC 10.05 (4.0-11.0) K/uL RBC 4.64 (4.30-5.90) M/uL Hgb 13.9 (12.0-16.0) g/dL Hct 41.6 (36.0-46.0) % MCV 89.7 (80.0-98.0) fL MCH 30.0 (27.0-32.0) pg MCHC 33.4 (31.0-37.0) g/dL RDW Std Deviation 44.9 (28.0-62.0) fl RDW Coeff of Gibran 14 (11.0-15.0) % Plt Count 182 (150-400) K/uL MPV 10.60 (7.40-12.00) fL Neut % (Auto) 76.9 (48.0-80.0) % Lymph % (Auto) 11.1 L (16.0-40.0) % Stone % (Auto) 11.1 (0.0-15.0) % Eos % (Auto) 0.7 (0.0-7.0) % Baso % (Auto) 0.2 (0.0-1.5) % Neut # (Auto) 7.7 H (1.4-5.7) K/uL Lymph # (Auto) 1.1 (0.6-2.4) K/uL Stone # (Auto) 1.1 H (0.0-0.8) K/uL Eos # (Auto) 0.1 (0.0-0.7) K/uL Baso # (Auto) 0.0 (0.0-0.1) K/uL Nucleated RBC % 0.0 /100WBC Nucleated RBCs # 0 K/uL INR 1.05 (0.86-1.11) Lactate (0.20-2.00) mmol/L Sodium 135 L (136-146) mmol/L Potassium 3.9 (3.5-5.1) mmol/L Chloride 106 (98-110) mmol/L Carbon Dioxide 22 (21-31) mmol/L BUN 5 L (6.0-23.0) mg/dL Creatinine 0.8 (0.6-1.5) mg/dL Est Cr Clr Drug Dosing 107.43 mL/min Estimated GFR (MDRD) > 60.0 ml/min Glucose 95 (60-110) mg/dL Calcium 9.1 (8.8-10.8) mg/dL Total Bilirubin 0.5 (0.1-1.5) mg/dL AST 12 (5-40) IU/L ALT 12 (8-54) IU/L Alkaline Phosphatase 83 (40-150) Troponin I (0.0-0.29) NG/ML Total Protein 7.2 (6.0-8.0) g/dL Albumin 4.0 (3.5-5.0) g/dL Globulin 3.2 (2.0-3.5) g/dL Albumin/Globulin Ratio 1.3 (1.3-2.8) Urine Color Urine Appearance Urine pH (5.0-8.0) Ur Specific [place] (1.001-1.035) Urine Protein (NEGATIVE) mg/dL Urine Glucose (UA) (NEGATIVE) mg/dL Urine Ketones (NEGATIVE) mg/dL Urine Occult Blood (NEGATIVE) Urine Nitrite (NEGATIVE) Urine Bilirubin (NEGATIVE) Urine Urobilinogen (<2.0) EU/dL Ur Leukocyte Esterase (NEGATIVE) Urine RBC (0-2/HPF) Urine WBC (0-5/HPF) Ur Epithelial Cells (NONE-FEW) Amorphous Sediment (NEGATIVE) Urine Bacteria (NEGATIVE) Urine HCG, Qual (NEGATIVE) Urine Opiates Screen (NEGATIVE) Ur Oxycodone Screen (NEGATIVE) Urine Methadone Screen (NEGATIVE) Ur Barbiturates Screen (NEGATIVE) Ur Phencyclidine Scrn (NEGATIVE) Ur Amphetamine Screen (NEGATIVE) U Methamphetamines Scrn (NEGATIVE) U Benzodiazepines Scrn (NEGATIVE) U Cocaine Metab Screen (NEGATIVE) U Marijuana (THC) Screen (NEGATIVE) 10/02/16 10/02/16 Range/Units 13:12 13:12 WBC (4.0-11.0) K/uL RBC (4.30-5.90) M/uL Hgb (12.0-16.0) g/dL Hct (36.0-46.0) % MCV (80.0-98.0) fL MCH (27.0-32.0) pg MCHC (31.0-37.0) g/dL RDW Std Deviation (28.0-62.0) fl RDW Coeff of Gibran (11.0-15.0) % Plt Count (150-400) K/uL MPV (7.40-12.00) fL Neut % (Auto) (48.0-80.0) % Lymph % (Auto) (16.0-40.0) % Stone % (Auto) (0.0-15.0) % Eos % (Auto) (0.0-7.0) % Baso % (Auto) (0.0-1.5) % Neut # (Auto) (1.4-5.7) K/uL Lymph # (Auto) (0.6-2.4) K/uL Stone # (Auto) (0.0-0.8) K/uL Eos # (Auto) (0.0-0.7) K/uL Baso # (Auto) (0.0-0.1) K/uL Nucleated RBC % /100WBC Nucleated RBCs # K/uL INR (0.86-1.11) Lactate 2.0 (0.20-2.00) mmol/L Sodium (136-146) mmol/L Potassium (3.5-5.1) mmol/L Chloride (98-110) mmol/L Carbon Dioxide (21-31) mmol/L BUN (6.0-23.0) mg/dL Creatinine (0.6-1.5) mg/dL Est Cr Clr Drug Dosing mL/min Estimated GFR (MDRD) ml/min Glucose (60-110) mg/dL Calcium (8.8-10.8) mg/dL Total Bilirubin (0.1-1.5) mg/dL AST (5-40) IU/L ALT (8-54) IU/L Alkaline Phosphatase (40-150) Troponin I < 0.10 (0.0-0.29) NG/ML Total Protein (6.0-8.0) g/dL Albumin (3.5-5.0) g/dL Globulin (2.0-3.5) g/dL Albumin/Globulin Ratio (1.3-2.8) Urine Color Urine Appearance Urine pH (5.0-8.0) Ur Specific [place] (1.001-1.035) Urine Protein (NEGATIVE) mg/dL Urine Glucose (UA) (NEGATIVE) mg/dL Urine Ketones (NEGATIVE) mg/dL Urine Occult Blood (NEGATIVE) Urine Nitrite (NEGATIVE) Urine Bilirubin (NEGATIVE) Urine Urobilinogen (<2.0) EU/dL Ur Leukocyte Esterase (NEGATIVE) Urine RBC (0-2/HPF) Urine WBC (0-5/HPF) Ur Epithelial Cells (NONE-FEW) Amorphous Sediment (NEGATIVE) Urine Bacteria (NEGATIVE) Urine HCG, Qual (NEGATIVE) Urine Opiates Screen (NEGATIVE) Ur Oxycodone Screen (NEGATIVE) Urine Methadone Screen (NEGATIVE) Ur Barbiturates Screen (NEGATIVE) Ur Phencyclidine Scrn (NEGATIVE) Ur Amphetamine Screen (NEGATIVE) U Methamphetamines Scrn (NEGATIVE) U Benzodiazepines Scrn (NEGATIVE) U Cocaine Metab Screen (NEGATIVE) U Marijuana (THC) Screen (NEGATIVE) Meds: Medications Discontinued Medications Generic Name Dose Route Start Last Admin Trade Name Freq PRN Reason Stop Dose Admin Sodium Chloride 1,000 mls @ 999 mls/hr 10/02/16 14:24 10/02/16 14:36 Normal Saline IV 10/02/16 15:24 999 mls/hr STAT ONE Administration Sodium Chloride 1,000 mls @ 999 mls/hr 10/02/16 15:59 10/02/16 16:01 Normal Saline IV 10/02/16 16:59 999 mls/hr .Bolus ONE Administration Ketorolac Tromethamine 30 mg 10/02/16 14:24 10/02/16 14:41 Toradol IVPUSH 10/02/16 14:25 30 mg ONETIME ONE Administration Lorazepam 1 mg 10/02/16 14:24 10/02/16 14:38 Ativan IVPUSH 10/02/16 14:25 1 mg ONETIME ONE Administration Departure - Departure Time of Disposition: 18:10 Disposition: Home, Self-Care 01 Condition: Fair Clinical Impression: IV drug user - Discharge Information Instructions: Chemical Dependency Referrals: PCP,None [Primary Care Provider] - Forms: ED Department Discharge Additional Instructions: The following information is given to patients seen in the emergency department who are being discharged to home. This information is to outline your options for follow-up care. We provide all patients seen in our emergency department with a follow-up referral. The need for follow-up, as well as the timing and circumstances, are variable depending upon the specifics of your emergency department visit. If you don't have a primary care physician on staff, we will provide you with a referral. We always advise you to contact your personal physician following an emergency department visit to inform them of the circumstance of the visit and for follow-up with them and/or the need for any referrals to a consulting specialist. The emergency department will also refer you to a specialist when appropriate. This referral assures that you have the opportunity for follow-up care with a specialist. All of these measure are taken in an effort to provide you with optimal care, which includes your follow-up. Under all circumstances we always encourage you to contact your private physician who remains a resource for coordinating your care. When calling for follow-up care, please make the office aware that this follow-up is from your recent emergency room visit. If for any reason you are refused follow-up, please contact the [facility] emergency department at and asked to speak to the emergency department charge nurse. [facility] [address] [place] [id number] Establish care and follow-up at the clinic listed above in 3-4 days. Recommend stopping all drug use. Return to ER as needed as discussed.
--- NOTE | 2016-10-02 13:41 | PCM.SN ---
- Free Text/Narrative Note: Called to ER for PIV start as nursing has been unable to obtain IV access at this time. The patient is an IV drug user who I have worked with in the past. 18g PIV started to Rt EJ without difficulty. Secured with tape and tegaderm. Pt tolerated placement well.
[2016-10-02 13:49] LABS: CHLORIDE,CL 106 mmol/L (98-110); SODIUM,NA 135 mmol/L (136-146)
[2016-10-02] MEDS ORDERED: Ketorolac 30 MG/ML SDV IVPUSH ONE (14:24)
[2016-10-02] MEDS ORDERED: Sodium Chloride 0.9% 1,000 ML IV ONE ×2 (14:24→15:59)
[2016-10-02] MEDS ORDERED: LORazepam 2 MG/ML MDV IVPUSH ONE (14:24)
--- NOTE | 2016-10-02 19:15 | CR ---
EXAM DATE: 10/02/16 PATIENT'S AGE: 35 Patient: CHERELLE ACOSTA Facility: [place], [place] Site . Site : [id number] Study: XRay Chest [id number] 1:29:45 PM Ordering Physician: Doctor Blair Final Report: INDICATION: Chest pain; shortness of breath TECHNIQUE: Two view chest. FINDINGS: The lungs are clear. The heart, mediastinum and pulmonary vessels are of normal size. There is no evidence of pleural disease. IMPRESSION: Negative chest. Dictated by Elton Palacio MD @ Oct 02 2016 1:55PM (Electronic Signature) Report Signed by Proxy. GEENA
[2016-10-03 01:12] VITALS: BP 121/72
== END 2016-10-02 18:34 | disposition home or self-care (01) ==
LOC: MW.ED 11:47
DX: F15.10 Other stimulant abuse, uncomplicated (principal); F17.210 Nicotine dependence, cigarettes, uncomplicated; E10.9 Type 1 diabetes mellitus without complications; Z88.5 Allergy status to narcotic agent; Z88.0 Allergy status to penicillin; Z88.2 Allergy status to sulfonamides; Z88.1 Allergy status to other antibiotic agents; Z79.4 Long term (current) use of insulin; Z98.890 Other specified postprocedural states
CPT/HCPCS: 36415; 71020; 80053; 80305; 81001; 81025; 83605; 84484; 85025; 85610; 87040; 87086; 87088; 87186; 93005; 96361; 96374; 96375; 99285; J1885; J2060; J7040; 36410; 87077; 99284

== ENCOUNTER 2016-10-03 06:56 | Emergency (ER) | payer SELFPAY ==
--- NOTE | 2016-10-03 07:21 | EDM.PDOC ---
ED HPI GENERAL MEDICAL PROBLEM - General Chief Complaint: Fever Stated Complaint: FEVER Time Seen by Provider: 10/03/16 07:03 Source of Information: Reports: Patient History Limitations: Reports: No Limitations - History of Present Illness INITIAL COMMENTS - FREE TEXT/NARRATIVE: HISTORY AND PHYSICAL: History of present illness: [35-year-old female well known to our emergency medicine service for frequent visits and habitual IV drug abuse, now presents to the emergency department complaining that she doesn't feel well. She has been using IV methamphetamines including yesterday. She came to the emergency department yesterday with the same complaint. She had a full workup and was hydrated extensively. Her labs yesterday were unremarkable and blood cultures were drawn, the results of which have been negative. She has no specific complaints. Denies headache or stiff neck. No chest pain or shortness of air. Denies abdominal pain. She reports normal bowel and bladder habits. Review of systems: As per history of present illness and below otherwise all systems reviewed and negative. Past medical history: As per history of present illness and as reviewed below otherwise noncontributory. Surgical history: As per history of present illness and as reviewed below otherwise noncontributory. Social history: Long history of IV drug abuse Family history: As per history of present illness and as reviewed below otherwise noncontributory. Physical exam: Slightly unkempt appearing 35-year-old female no acute distress alert and communicative and patient was standing at the registration counter prior to registration, appearing very casual uncomfortable both prior to registration and upon arrival in the room. Moist mucous membranes supple neck, alert and oriented, communicative and appropriate. Heart rate 96 on M.D. exam no murmur clear lungs benign abdomen nonfocal neurologic exam HEENT: Atraumatic, normocephalic, pupils reactive, negative for conjunctival pallor or scleral icterus, mucous membranes moist, throat clear, neck supple, nontender, trachea midline. Lungs: Clear to auscultation, breath sounds equal bilaterally, chest nontender. Heart: S1S2, regular, negative for clicks, rubs, or JVD. Abdomen: Soft, nondistended, nontender. Negative for masses or hepatosplenomegaly. Negative for costovertebral tenderness. Pelvis: Stable nontender. Genitourinary: Deferred. Rectal: Deferred. Extremities: Atraumatic, negative for cords or calf pain. Neurovascular unremarkable. Neuro: Awake, alert, oriented. Cranial nerves II through XII unremarkable. Cerebellum unremarkable. Motor and sensory unremarkable throughout. Exam nonfocal. Diagnostics: [] Therapeutics: [] Impression: [] Plan: [Patient well-appearing afebrile no tachycardia on exam. She appears completely comfortable and had a full workup yesterday which was negative. Blood culture results discussed with the lab, both bottles with no growth. No further workup or treatment indicated. Patient aware to rest and drink plenty of fluids and stop using IV drugs. I discussed with her at length the risks of or permanent disability and that if she is to optimize quality of her life for herself and those she cares about, she needs to stop using IV drugs. I also_the critical importance of following up with a primary care doctor to establish a doctor-patient relationship and provide for her continued care. Patient agrees with outpatient follow-up and strict return precautions given Definitive disposition and diagnosis as appropriate pending reevaluation and review of above. head Pain Score (Numeric/FACES): 6 - Related Data Allergies Allergy/AdvReac Type Severity Reaction Status Date / Time codeine Allergy Shortness Verified 10/03/16 07:07 of Breath Penicillins Allergy Anaphylactic Verified 10/03/16 07:07 Shock sulfamethoxazole Allergy Hives Verified 10/03/16 07:07 [From Bactrim] trimethoprim [From Bactrim] Allergy Hives Verified 10/03/16 07:07 Home Meds: Home Meds Insulin Aspart [Novolog Flexpen] 0 unit SQ DAILY 09/10/16 [History] Past Medical History - Past Health History Medical/Surgical History: Denies Medical/Surgical History HEENT History: Reports: Other (See Below) Other HEENT History: missing teeth Cardiovascular History: Reports: Bacterial Endocarditis, Cardiomyopathy, Other ( See Below) Other Cardiovascular History: Mitral Valve Prolapse Respiratory History: Reports: None Gastrointestinal History: Reports: Cholelithiasis Other Genitourinary History: polycystic kidney disease [employer] IN[employer]CTOR History: Reports: Musculoskeletal History: Reports: Other (See Below) Other Musculoskeletal History: chronic hip pain Neurological History: Reports: Seizure Psychiatric History: Reports: Addiction, Anxiety Endocrine/Metabolic History: Reports: Diabetes, Type I Hematologic History: Reports: None Other Hematologic History: pt reports low white blood cell count Oncologic (Cancer) History: Reports: Breast Dermatologic History: Reports: Cellulitis, Chronic Cellulitis - Infectious Disease History Infectious Disease History: Reports: MRSA Other Infectious Disease History: MSSA - Past Surgical History Head Surgeries/Procedures: Reports: None Female Surgical History: Reports: Ureteral Stent Oncologic Surgical History: Reports: Lumpectomy Other Oncologic Surgeries/Procedures: left breast lumpectomy Social & Family History - Family History Family Medical History: Noncontributory - Tobacco Use Smoking Status *Q: Current Every Day Smoker Years of Tobacco use: 20 Packs/Tins Daily: 1 Second Hand Smoke Exposure: Yes - Caffeine Use Caffeine Use: Reports: Coffee, Soda - Recreational Drug Use Recreational Drug Use: Yes Drug Use in Last 12 Months: Yes Recreational Drug Type: Reports: Heroin, Marijuana/Hashish Recreational Drug Use Frequency: Daily Recreational Drug Last Use: pt reports coming off opiates 6 days ago ED ROS GENERAL - Review of Systems Review Of Systems: See Below (History of present illness) ED EXAM, GENERAL - Physical Exam Exam: See Below (History of present illness) Course - Vital Signs Last Recorded V/S: Last Vital Signs Temp 37.6 C 10/03/16 07:08 Pulse 106 H 10/03/16 07:08 Resp 24 H 10/03/16 07:08 BP 127/72 10/03/16 07:08 Pulse Ox 97 10/03/16 07:08 Departure - Departure Time of Disposition: 07:21 Disposition: Home, Self-Care 01 Condition: Good Clinical Impression: Methamphetamine abuse, IV drug abuse - Discharge Information Instructions: Chemical Dependency Referrals: PCP,None [Primary Care Provider] - Forms: ED Department Discharge Additional Instructions: Clearly, any medical professional would recommend that you not use IV drugs. As I'm sure that you are aware, even a single use of IV drugs could be life- threatening or permanently disabling. Your blood cultures from yesterday have been negative. This means there is no evidence of bacteria in your bloodstream. Be aware that any time you use IV drugs, you are introducing the possibility of contaminating your bloodstream with bacteria that could become life threatening. His typical for people to "not feel well " while using IV drugs including meth. This is not an activity or lifestyle which typically makes people feel their best. Rest and drink plenty of fluids and doesn't use any drugs. Follow-up with a to establish a doctor-patient relationship for your continued care.
== END 2016-10-03 07:40 | disposition home or self-care (01) ==
LOC: MW.ED 06:56
CPT/HCPCS: 99283

== ENCOUNTER 2016-10-04 10:57 | Inpatient (IN) | payer SELFPAY ==
[2016-10-04] MEDS ORDERED: Sodium Chloride 0.9% 1,000 ML IV ONE ×2 (11:17→15:26)
--- NOTE | 2016-10-04 11:20 | EDM.PDOC ---
ED HPI GENERAL MEDICAL PROBLEM - General Chief Complaint: Fever Stated Complaint: FEVER Time Seen by Provider: 10/04/16 11:15 Source of Information: Reports: Patient History Limitations: Reports: No Limitations - History of Present Illness INITIAL COMMENTS - FREE TEXT/NARRATIVE: HISTORY AND PHYSICAL: History of present illness: [Pt comes to the ER stating, "I feel like I'm going to ". This is her third ER visit in 3 days. She complains of body aches to her entire body and feeling hot and generalized malaise. Gradually worsening over the past 3 days. No specific area of pain, just generalized body aches. No chest pain, shortness of breath, difficulty breathing. Has been urinating without any difficulty. Normal stools. Has had decreased appetite. Complains of subjective fevers. She is brought to the ER by her boyfriend. Has not used any drugs or substances in the past 6 days. ] Review of systems: As per history of present illness and below otherwise all systems reviewed and negative. Past medical history: As per history of present illness and as reviewed below otherwise noncontributory. Surgical history: As per history of present illness and as reviewed below otherwise noncontributory. Social history: No reported history of drug or alcohol abuse. Family history: As per history of present illness and as reviewed below otherwise noncontributory. Physical exam: General: Well developed, well nourished female in no acute distress. Skin is warm to touch, is pink and intact. HEENT: Atraumatic, normocephalic. PERRLA. mucous membranes moist, throat clear, neck supple, nontender, trachea midline. Lungs: Clear to auscultation, breath sounds equal bilaterally. Heart: S1S2, regular, no murmur appreciated today. Abdomen: Soft, nondistended, nontender. Negative for masses, guarding or rebound. Negative for costovertebral tenderness. Pelvis: Stable nontender. Genitourinary: Deferred. Rectal: Deferred. Extremities: Atraumatic, negative for cords or calf pain. No cyanosis or edema. Neurovascular unremarkable. Neuro: Awake, alert, oriented. Motor and sensory unremarkable throughout. Exam nonfocal. Psych: Sleeping on exam table, but rouses easily. Conversation is appropriate. Diagnostics: [CBC, CMP, UA w/ micro, urine drug screen, blood cultures x 2, EKG] Therapeutics: [IV NS at 250mL/hour, Tylenol 1000mg po] Impression: [fever r/o sepsis] Plan: [Discussed patient and her lab results with Dr. Alcon Garcia who agrees to accept patient for inpatient admission. Patient is in agreement with plan. ] Definitive disposition and diagnosis as appropriate pending reevaluation and review of above. general body aches Pain Score (Numeric/FACES): 9 - Related Data Allergies Allergy/AdvReac Type Severity Reaction Status Date / Time codeine Allergy Shortness Verified 10/04/16 11:07 of Breath Penicillins Allergy Anaphylactic Verified 10/04/16 11:07 Shock sulfamethoxazole Allergy Hives Verified 10/04/16 11:07 [From Bactrim] trimethoprim [From Bactrim] Allergy Hives Verified 10/04/16 11:07 Home Meds: Home Meds Insulin Aspart [Novolog Flexpen] 0 unit SQ DAILY 09/10/16 [History] Past Medical History - Past Health History Medical/Surgical History: Denies Medical/Surgical History HEENT History: Reports: Other (See Below) Other HEENT History: missing teeth Cardiovascular History: Reports: Bacterial Endocarditis, Cardiomyopathy, Other ( See Below) Other Cardiovascular History: Mitral Valve Prolapse Respiratory History: Reports: None Gastrointestinal History: Reports: Cholelithiasis Other Genitourinary History: polycystic kidney disease CLIMATOLOGIST History: Reports: Musculoskeletal History: Reports: Other (See Below) Other Musculoskeletal History: chronic hip pain Neurological History: Reports: Seizure Psychiatric History: Reports: Addiction, Anxiety Endocrine/Metabolic History: Reports: Diabetes, Type I Hematologic History: Reports: None Other Hematologic History: pt reports low white blood cell count Oncologic (Cancer) History: Reports: Breast Dermatologic History: Reports: Cellulitis, Chronic Cellulitis - Infectious Disease History Infectious Disease History: Reports: MRSA Other Infectious Disease History: MSSA - Past Surgical History Head Surgeries/Procedures: Reports: None Female Surgical History: Reports: Ureteral Stent Oncologic Surgical History: Reports: Lumpectomy Other Oncologic Surgeries/Procedures: left breast lumpectomy Social & Family History - Family History Family Medical History: Noncontributory - Tobacco Use Smoking Status *Q: Current Every Day Smoker Years of Tobacco use: 20 Packs/Tins Daily: 1 Second Hand Smoke Exposure: Yes - Caffeine Use Caffeine Use: Reports: Coffee, Soda - Recreational Drug Use Recreational Drug Use: Yes Drug Use in Last 12 Months: Yes Recreational Drug Type: Reports: Methamphetamine Other Recreational Drug Type: " Pt reports I use everything. If you can put it in a needle Ill use it. " Recreational Drug Use Frequency: Daily Recreational Drug Last Use: pt reports coming off opiates 6 days ago ED ROS GENERAL - Review of Systems Review Of Systems: ROS reveals no pertinent complaints other than HPI. ED EXAM, SEPSIS - Physical Exam Exam: See Below Course - Vital Signs Last Recorded V/S: Last Vital Signs Temp 98.3 F 10/05/16 07:00 Pulse 107 H 10/05/16 07:00 Resp 16 10/05/16 07:00 BP 110/55 L 10/05/16 07:00 Pulse Ox 97 10/05/16 07:00 - Orders/Labs/Meds Orders: Active Orders 24 hr Category Date Time Status EKG Documentation Completion [RC] STAT Care 10/04/16 11:18 Active CULTURE BLOOD [BC] Stat Lab 10/04/16 12:17 Results CULTURE BLOOD [BC] Stat Lab 10/04/16 12:24 Results Blood Culture x2 Reflex Set [OM.PC] Stat Oth 10/04/16 11:16 Ordered Medication Orders Acetaminophen (Tylenol) 650 mg PO Q4H PRN PRN Reason: Pain (Mild 1-3)/fever Enoxaparin Sodium (Lovenox) 40 mg SUBCUT DAILY [facility] Last Admin: 10/05/16 09:45 Dose: 40 mg Sodium Chloride (Normal Saline) 1,000 mls @ 125 mls/hr IV ASDIRECTED [facility] Last Admin: 10/05/16 03:07 Dose: 125 mls/hr Infusion: 10/05/16 00:45 Dose: 125 mls/hr Admin: 10/04/16 16:45 Dose: 125 mls/hr Levofloxacin/Dextrose 750 mg/ (Premix) 150 mls @ 100 mls/hr IV Q24H [facility] Last Admin: 10/04/16 16:46 Dose: 100 mls/hr Vancomycin HCl 1 gm/ Sodium (Chloride) 250 mls @ 166.667 mls/hr IV Q8H [facility] Last Admin: 10/05/16 06:25 Dose: 166.667 mls/hr Infusion: 10/05/16 00:01 Dose: 166.667 mls/hr Admin: 10/04/16 22:31 Dose: 166.667 mls/hr Ibuprofen (Motrin) 200 mg PO Q6H PRN PRN Reason: Pain (mild 1-3) Insulin Aspart (Novolog) 0 unit SUBCUT TIDAC VERONICA PRN Reason: Protocol Last Admin: 10/05/16 06:32 Dose: Admin: 10/04/16 16:51 Dose: Ondansetron HCl (Zofran) 4 mg IVPUSH Q4H PRN PRN Reason: Nausea Last Admin: 10/04/16 17:35 Dose: 4 mg Promethazine HCl (Phenergan) 25 mg IM Q6H PRN PRN Reason: Nausea/Vomiting Last Admin: 10/05/16 09:45 Dose: 25 mg Admin: 10/04/16 20:10 Dose: 25 mg Vancomycin HCl (Pharmacy To Dose - Vancomycin) 1 dose .XX ASDIRECTED [facility] Labs: Laboratory Tests 10/04/16 10/04/16 10/04/16 Range/Units 12:17 12:17 12:17 WBC 17.20 H (4.0-11.0) K/uL RBC 4.48 (4.30-5.90) M/uL Hgb 13.2 (12.0-16.0) g/dL Hct 39.1 (36.0-46.0) % MCV 87.3 (80.0-98.0) fL MCH 29.5 (27.0-32.0) pg MCHC 33.8 (31.0-37.0) g/dL RDW Std Deviation 43.2 (28.0-62.0) fl RDW Coeff of Gibran 14 (11.0-15.0) % Plt Count 110 L (150-400) K/uL MPV 10.70 (7.40-12.00) fL Add Manual Diff YES Neutrophils % (Manual) 72 (48.0-80.0) % Band Neutrophils % 12 % Lymphocytes % (Manual) 4 L (16.0-40.0) % Monocytes % (Manual) 12 (0.0-15.0) % Nucleated RBC % 0.0 /100WBC Absolute Seg Neuts 12.4 Band Neutrophils # 2.1 Lymphocytes # (Manual) 0.7 Monocytes # (Manual) 2.1 Nucleated RBCs # 0 K/uL Lactate 0.9 (0.20-2.00) mmol/L Sodium 129 L (136-146) mmol/L Potassium 3.1 L (3.5-5.1) mmol/L Chloride 102 (98-110) mmol/L Carbon Dioxide 18 L (21-31) mmol/L BUN 4 L (6.0-23.0) mg/dL Creatinine 0.9 (0.6-1.5) mg/dL Est Cr Clr Drug Dosing 92.05 mL/min Estimated GFR (MDRD) > 60.0 ml/min Glucose 129 H (60-110) mg/dL Calcium 8.8 (8.8-10.8) mg/dL Total Bilirubin 0.5 (0.1-1.5) mg/dL AST 17 (5-40) IU/L ALT 16 (8-54) IU/L Alkaline Phosphatase 68 (40-150) Creatine Kinase (9-236) IU/L Total Protein 6.9 (6.0-8.0) g/dL Albumin 3.6 (3.5-5.0) g/dL Globulin 3.3 (2.0-3.5) g/dL Albumin/Globulin Ratio 1.1 L (1.3-2.8) Urine Color Urine Appearance Urine pH (5.0-8.0) Ur Specific [place] (1.001-1.035) Urine Protein (NEGATIVE) mg/dL Urine Glucose (UA) (NEGATIVE) mg/dL Urine Ketones (NEGATIVE) mg/dL Urine Occult Blood (NEGATIVE) Urine Nitrite (NEGATIVE) Urine Bilirubin (NEGATIVE) Urine Urobilinogen (<2.0) EU/dL Ur Leukocyte Esterase (NEGATIVE) Urine RBC (0-2/HPF) Urine WBC (0-5/HPF) Ur Epithelial Cells (NONE-FEW) Urine Bacteria (NEGATIVE) Urine HCG, Qual (NEGATIVE) Urine Opiates Screen (NEGATIVE) Ur Oxycodone Screen (NEGATIVE) Urine Methadone Screen (NEGATIVE) Ur Barbiturates Screen (NEGATIVE) Ur Phencyclidine Scrn (NEGATIVE) Ur Amphetamine Screen (NEGATIVE) U Methamphetamines Scrn (NEGATIVE) U Benzodiazepines Scrn (NEGATIVE) U Cocaine Metab Screen (NEGATIVE) U Marijuana (THC) Screen (NEGATIVE) 07/30/17 07/30/17 07/30/17 Range/Units 12:17 13:10 13:10 WBC (4.0-11.0) K/uL RBC (4.30-5.90) M/uL Hgb (12.0-16.0) g/dL Hct (36.0-46.0) % MCV (80.0-98.0) fL MCH (27.0-32.0) pg MCHC (31.0-37.0) g/dL RDW Std Deviation (28.0-62.0) fl RDW Coeff of Gibran (11.0-15.0) % Plt Count (150-400) K/uL MPV (7.40-12.00) fL Add Manual Diff Neutrophils % (Manual) (48.0-80.0) % Band Neutrophils % % Lymphocytes % (Manual) (16.0-40.0) % Monocytes % (Manual) (0.0-15.0) % Nucleated RBC % /100WBC Absolute Seg Neuts Band Neutrophils # Lymphocytes # (Manual) Monocytes # (Manual) Nucleated RBCs # K/uL Lactate (0.20-2.00) mmol/L Sodium (136-146) mmol/L Potassium (3.5-5.1) mmol/L Chloride (98-110) mmol/L Carbon Dioxide (21-31) mmol/L BUN (6.0-23.0) mg/dL Creatinine (0.6-1.5) mg/dL Est Cr Clr Drug Dosing mL/min Estimated GFR (MDRD) ml/min Glucose (60-110) mg/dL Calcium (8.8-10.8) mg/dL Total Bilirubin (0.1-1.5) mg/dL AST (5-40) IU/L ALT (8-54) IU/L Alkaline Phosphatase (40-150) Creatine Kinase 243 H (9-236) IU/L Total Protein (6.0-8.0) g/dL Albumin (3.5-5.0) g/dL Globulin (2.0-3.5) g/dL Albumin/Globulin Ratio (1.3-2.8) Urine Color YELLOW Urine Appearance CLEAR Urine pH 5.5 (5.0-8.0) Ur Specific [place] <= 1.005 (1.001-1.035) Urine Protein NEGATIVE (NEGATIVE) mg/dL Urine Glucose (UA) NEGATIVE (NEGATIVE) mg/dL Urine Ketones NEGATIVE (NEGATIVE) mg/dL Urine Occult Blood MODERATE (NEGATIVE) Urine Nitrite NEGATIVE (NEGATIVE) Urine Bilirubin NEGATIVE (NEGATIVE) Urine Urobilinogen 1.0 (<2.0) EU/dL Ur Leukocyte Esterase NEGATIVE (NEGATIVE) Urine RBC 0-3 (0-2/HPF) Urine WBC 0-2 (0-5/HPF) Ur Epithelial Cells FEW (NONE-FEW) Urine Bacteria FEW (NEGATIVE) Urine HCG, Qual (NEGATIVE) Urine Opiates Screen NEGATIVE (NEGATIVE) Ur Oxycodone Screen NEGATIVE (NEGATIVE) Urine Methadone Screen NEGATIVE (NEGATIVE) Ur Barbiturates Screen NEGATIVE (NEGATIVE) Ur Phencyclidine Scrn NEGATIVE (NEGATIVE) Ur Amphetamine Screen NEGATIVE (NEGATIVE) U Methamphetamines Scrn NEGATIVE (NEGATIVE) U Benzodiazepines Scrn NEGATIVE (NEGATIVE) U Cocaine Metab Screen NEGATIVE (NEGATIVE) U Marijuana (THC) Screen NEGATIVE (NEGATIVE) 10/04/16 Range/Units 13:10 WBC (4.0-11.0) K/uL RBC (4.30-5.90) M/uL Hgb (12.0-16.0) g/dL Hct (36.0-46.0) % MCV (80.0-98.0) fL MCH (27.0-32.0) pg MCHC (31.0-37.0) g/dL RDW Std Deviation (28.0-62.0) fl RDW Coeff of Gibran (11.0-15.0) % Plt Count (150-400) K/uL MPV (7.40-12.00) fL Add Manual Diff Neutrophils % (Manual) (48.0-80.0) % Band Neutrophils % % Lymphocytes % (Manual) (16.0-40.0) % Monocytes % (Manual) (0.0-15.0) % Nucleated RBC % /100WBC Absolute Seg Neuts Band Neutrophils # Lymphocytes # (Manual) Monocytes # (Manual) Nucleated RBCs # K/uL Lactate (0.20-2.00) mmol/L Sodium (136-146) mmol/L Potassium (3.5-5.1) mmol/L Chloride (98-110) mmol/L Carbon Dioxide (21-31) mmol/L BUN (6.0-23.0) mg/dL Creatinine (0.6-1.5) mg/dL Est Cr Clr Drug Dosing mL/min Estimated GFR (MDRD) ml/min Glucose (60-110) mg/dL Calcium (8.8-10.8) mg/dL Total Bilirubin (0.1-1.5) mg/dL AST (5-40) IU/L ALT (8-54) IU/L Alkaline Phosphatase (40-150) Creatine Kinase (9-236) IU/L Total Protein (6.0-8.0) g/dL Albumin (3.5-5.0) g/dL Globulin (2.0-3.5) g/dL Albumin/Globulin Ratio (1.3-2.8) Urine Color Urine Appearance Urine pH (5.0-8.0) Ur Specific [place] (1.001-1.035) Urine Protein (NEGATIVE) mg/dL Urine Glucose (UA) (NEGATIVE) mg/dL Urine Ketones (NEGATIVE) mg/dL Urine Occult Blood (NEGATIVE) Urine Nitrite (NEGATIVE) Urine Bilirubin (NEGATIVE) Urine Urobilinogen (<2.0) EU/dL Ur Leukocyte Esterase (NEGATIVE) Urine RBC (0-2/HPF) Urine WBC (0-5/HPF) Ur Epithelial Cells (NONE-FEW) Urine Bacteria (NEGATIVE) Urine HCG, Qual NEGATIVE (NEGATIVE) Urine Opiates Screen (NEGATIVE) Ur Oxycodone Screen (NEGATIVE) Urine Methadone Screen (NEGATIVE) Ur Barbiturates Screen (NEGATIVE) Ur Phencyclidine Scrn (NEGATIVE) Ur Amphetamine Screen (NEGATIVE) U Methamphetamines Scrn (NEGATIVE) U Benzodiazepines Scrn (NEGATIVE) U Cocaine Metab Screen (NEGATIVE) U Marijuana (THC) Screen (NEGATIVE) Meds: Medications Generic Name Dose Route Start Last Admin Trade Name Freq PRN Reason Stop Dose Admin Acetaminophen 650 mg 10/04/16 15:41 Tylenol PO Q4H PRN Pain (Mild 1-3)/fever Enoxaparin Sodium 40 mg 10/05/16 09:00 10/05/16 09:45 Lovenox SUBCUT 40 mg DAILY VERONICA Administration Sodium Chloride 1,000 mls @ 125 mls/hr 10/04/16 15:30 10/05/16 03:07 Normal Saline IV 125 mls/hr ASDIRECTED VERONICA Administration Levofloxacin/Dextrose 750 mg/ 150 mls @ 100 mls/hr 10/04/16 15:45 07/30/17 16 :46 Premix IV 100 mls/hr Q24H [facility] Administration Vancomycin HCl 1 gm/ Sodium 250 mls @ 166.667 mls/hr 10/04/16 22:00 10/05/16 06:25 Chloride IV 166.667 mls/hr Q8H [facility] Administration Ibuprofen 200 mg 10/04/16 15:41 Motrin PO Q6H PRN Pain (mild 1-3) Insulin Aspart 0 unit 10/04/16 17:00 10/05/16 06:32 Novolog SUBCUT Not [facility] Protocol Ondansetron HCl 4 mg 10/04/16 15:41 10/04/16 17:35 Zofran IVPUSH 4 mg Q4H PRN Administration Nausea Promethazine HCl 25 mg 10/04/16 20:00 10/05/16 09:45 Phenergan IM 25 mg Q6H PRN Administration Nausea/Vomiting Vancomycin HCl 1 dose 10/04/16 16:00 Pharmacy To Dose - Vancomycin .XX ASDIRECTED [facility] Discontinued Medications Generic Name Dose Route Start Last Admin Trade Name Freq PRN Reason Stop Dose Admin Acetaminophen 1,000 mg 10/04/16 12:13 10/04/16 12:24 Tylenol Extra Strength PO 10/04/16 12:14 1,000 mg ONETIME ONE Administration Sodium Chloride 1,000 mls @ 250 mls/hr 10/04/16 11:17 10/04/16 12:25 Normal Saline IV 10/04/16 15:16 999 mls/hr STAT ONE Infusion Vancomycin HCl 1 gm/ Sodium 250 mls @ 166 mls/hr 10/04/16 13:46 10/04/16 13: 55 Chloride IV 10/04/16 15:16 166 mls/hr ONETIME ONE Administration Cefepime HCl 1 gm/ Premix 50 mls @ 100 mls/hr 10/04/16 15:30 10/04/16 17:06 IV Not Given Q8H [facility] Sodium Chloride 1,000 mls @ 999 mls/hr 10/04/16 15:26 10/04/16 15:38 Normal Saline IV 10/04/16 16:26 999 mls/hr .Bolus ONE Administration Lidocaine 5 ml 10/04/16 11:32 10/04/16 12:30 Xylocaine-Mpf 2% INJECT 10/04/16 11:33 Not Given ONETIME ONE Potassium Chloride 60 meq 10/04/16 13:48 10/04/16 13:56 Klor-Con M20 PO 10/04/16 13:49 60 meq DAILY ST[facility] Administration Potassium Chloride 40 meq 10/04/16 15:41 10/04/16 17:06 Klor-Con M20 PO 10/04/16 15:42 Not Given ONETIME ONE Departure - Departure Time of Disposition: 15:20 Disposition: Admitted As Inpatient 67 Condition: Good Clinical Impression: Leukocytosis Fever Qualifiers: Fever type: unspecified Qualified Code(s): R50.9 - Fever, unspecified - Discharge Information - My Orders Last 24 Hours: My Active Orders 10/04/16 11:16 Blood Culture x2 Reflex Set [OM.PC] Stat 10/04/16 11:18 EKG Documentation Completion [RC] STAT 10/04/16 12:17 CULTURE BLOOD [BC] Stat 10/04/16 12:24 CULTURE BLOOD [BC] Stat - Assessment/Plan Last 24 Hours: My Active Orders 10/04/16 11:16 Blood Culture x2 Reflex Set [OM.PC] Stat 10/04/16 11:18 EKG Documentation Completion [RC] STAT 10/04/16 12:17 CULTURE BLOOD [BC] Stat 10/04/16 12:24 CULTURE BLOOD [BC] Stat
[2016-10-04] MEDS ORDERED: Lidocaine 2% 5 ML SDV INJECT ONE (11:32)
[2016-10-04] MEDS ORDERED: Acetaminophen 500 MG Tab PO ONE (12:13)
[2016-10-04 12:55] LABS: CHLORIDE,CL 102 mmol/L (98-110); SODIUM,NA 129 mmol/L (136-146)
[2016-10-04] MEDS ORDERED: Potassium Chloride 20 MEQ Tab.ER PO STA (13:48)
[2016-10-04] MEDS ORDERED: Cefepime 1 GM in Premix Bag 1 BAG IV SCH (15:30)
[2016-10-04] MEDS ORDERED: Ondansetron 4 MG/2 ML SDV IVPUSH PRN (15:41)
[2016-10-04] MEDS ORDERED: Acetaminophen 325 MG Tab PO PRN (15:41)
[2016-10-04] MEDS ORDERED: Potassium Chloride 20 MEQ Tab.ER PO ONE (15:41)
[2016-10-04] MEDS ORDERED: Ibuprofen 200 MG Tab PO PRN (15:41)
--- NOTE | 2016-10-04 15:57 | PCM.HP ---
H&P History of Present Illness - General Admit Problem/Dx: Admission Diagnosis/Problem Admission Diagnosis/Problem Sepsis - History of Present Illness Initial Comments - Free Text/Narative: 35 yo female with pmh of DM, IV drug use and endocarditis who has been noncompliant with her treatment. She was admitted earlier this month for staph aureus bacteremia and Ecoli UTI and left AMA. The past three days she has visited the ED daily with complaints of fever and malaise. general body aches Pain Score (Numeric/FACES): 9 - Related Data Allergies/Adverse Reactions: Allergies Allergy/AdvReac Type Severity Reaction Status Date / Time codeine Allergy Shortness Verified 10/04/16 11:07 of Breath Penicillins Allergy Anaphylactic Verified 10/04/16 11:07 Shock sulfamethoxazole Allergy Hives Verified 10/04/16 11:07 [From Bactrim] trimethoprim [From Bactrim] Allergy Hives Verified 10/04/16 11:07 Home Medications: Home Meds Insulin Aspart [Novolog Flexpen] 0 unit SQ DAILY 09/10/16 [History] Sodium Chloride 0.9% [Normal Saline] 125 ml IV ASDIRECTED #0 bag 10/05/16 [Rx] Past Medical History - Past Health History Medical/Surgical History: Denies Medical/Surgical History HEENT History: Reports: Other (See Below) Other HEENT History: missing teeth Cardiovascular History: Reports: Bacterial Endocarditis, Cardiomyopathy, Other ( See Below) Other Cardiovascular History: Mitral Valve Prolapse Respiratory History: Reports: None Gastrointestinal History: Reports: Cholelithiasis Other Genitourinary History: polycystic kidney disease [employer]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: Musculoskeletal History: Reports: Other (See Below) Other Musculoskeletal History: chronic hip pain Neurological History: Reports: Seizure Psychiatric History: Reports: Addiction, Anxiety Endocrine/Metabolic History: Reports: Diabetes, Type I Hematologic History: Reports: None Other Hematologic History: pt reports low white blood cell count Oncologic (Cancer) History: Reports: Breast Dermatologic History: Reports: Cellulitis, Chronic Cellulitis - Infectious Disease History Infectious Disease History: Reports: MRSA Other Infectious Disease History: MSSA - Past Surgical History Head Surgeries/Procedures: Reports: None Female Surgical History: Reports: Ureteral Stent Oncologic Surgical History: Reports: Lumpectomy Other Oncologic Surgeries/Procedures: left breast lumpectomy Social & Family History - Family History Family Medical History: Noncontributory - Tobacco Use Smoking Status *Q: Current Every Day Smoker Years of Tobacco use: 20 Packs/Tins Daily: 1 Second Hand Smoke Exposure: Yes - Caffeine Use Caffeine Use: Reports: Coffee, Soda - Recreational Drug Use Recreational Drug Use: Yes Drug Use in Last 12 Months: Yes Recreational Drug Type: Reports: Methamphetamine Other Recreational Drug Type: " Pt reports I use everything. If you can put it in a needle Ill use it. " Recreational Drug Use Frequency: Daily Recreational Drug Last Use: pt reports coming off opiates 6 days ago H&P Review of Systems - Review of Systems: Review Of Systems: ROS reveals no pertinent complaints other than HPI. Exam - Exam Exam: See Below - Vital Signs Vital Signs: Last Vital Signs Temp 36.6 C 10/04/16 14:32 Pulse 125 H 10/04/16 12:20 Resp 20 10/04/16 14:32 BP 96/53 L 10/04/16 14:32 Pulse Ox 99 10/04/16 14:32 Weight: 72.575 kg - Exam General: Alert, Oriented, 4 HEENT: Mucosa Moist & [place], Posterior Pharynx Clear Neck: Supple, Trachea Midline, 2 Lungs: Clear to Auscultation, Normal Respiratory Effort Cardiovascular: Regular Rate, Regular Rhythm Extremities: Normal Inspection, No Pedal Edema Skin: Other (multiple track alvarez with small areas of induration but no cellulitic or abscess noted) - Patient Data Result Diagrams: 10/05/16 07:42 10/05/16 07:42 *Q Meaningful Use (ADM) - VTE *Q VTE Criteria *Q: - Stroke *Q Stroke Criteria *Q: - AMI *Q AMI Criteria *Q: Problem List Initiated/Reviewed/Updated: Yes Orders Last 24hrs: Active Orders 24 hr Category Date Time Status Antiembolic Devices [RC] PER UNIT ROUTINE Care 10/04/16 15:43 Active Intake and Output [RC] QSHIFT Care 10/04/16 15:41 Active Oxygen Therapy [RC] PRN Care 10/04/16 15:41 Active Up ad Dede [RC] ASDIRECTED Care 10/04/16 15:41 Active VTE/DVT Education [RC] PER UNIT ROUTINE Care 10/04/16 15:41 Active Vital Signs [RC] Q4H Care 10/04/16 15:41 Active [place] [employer] Diet [DIET] Diet 10/04/16 Breakfast Active CXR [Chest 2V] [CR] Routine Exams 10/04/16 15:32 Ordered CBC WITH AUTO DIFF [HEME] AM Lab 10/05/16 05:11 Ordered COMPREHENSIVE METABOLIC PN,CMP [CHEM] AM Lab 10/05/16 05:11 Ordered CULTURE URINE [RM] Routine Lab 10/04/16 15:26 Uncollected HCG QUALITATIVE,URINE [URCHEM] Routine Lab 10/04/16 15:46 Uncollected HCG QUANTITATIVE,SERUM [CHEM] Routine Lab 10/04/16 15:44 Ordered MAGNESIUM [CHEM] AM Lab 10/05/16 05:11 Ordered PHOSPHORUS [CHEM] AM Lab 10/05/16 05:11 Ordered Acetaminophen [Tylenol] Med 10/04/16 15:41 Ordered 650 mg PO Q4H PRN Enoxaparin [Lovenox] Med 10/05/16 09:00 Ordered 40 mg SUBCUT DAILY Ibuprofen [Motrin] Med 10/04/16 15:41 Ordered 200 mg PO Q6H PRN Levofloxacin/Dextrose 5%-Water [Levaquin in D5W 750 MG/ Med 10/04/16 15:45 Active 150 ML] 750 mg Premix Bag 1 bag IV Q24H Ondansetron [Zofran] Med 10/04/16 15:41 Ordered 4 mg IVPUSH Q4H PRN Sodium Chloride 0.9% [Normal Saline] 1,000 ml Med 10/04/16 15:26 Active IV .Bolus Sodium Chloride 0.9% [Normal Saline] 1,000 ml Med 10/04/16 15:30 Active IV ASDIRECTED Sequential Compression Device [OM.PC] Per Unit Routine Oth 10/04/16 15:41 Ordered Resuscitation Status Routine Resus Stat 10/04/16 15:41 Ordered Medication Orders Acetaminophen (Tylenol) 650 mg PO Q4H PRN PRN Reason: Pain (Mild 1-3)/fever Enoxaparin Sodium (Lovenox) 40 mg SUBCUT DAILY [facility] Sodium Chloride (Normal Saline) 1,000 mls @ 125 mls/hr IV ASDIRECTED [facility]ONICA Sodium Chloride (Normal Saline) 1,000 mls @ 999 mls/hr IV .Bolus ONE Stop: 10/04/16 16:26 Last Admin: 10/04/16 15:38 Dose: 999 mls/hr Levofloxacin/Dextrose 750 mg/ (Premix) 150 mls @ 100 mls/hr IV Q24H [facility] Ibuprofen (Motrin) 200 mg PO Q6H PRN PRN Reason: Pain (mild 1-3) Ondansetron HCl (Zofran) 4 mg IVPUSH Q4H PRN PRN Reason: Nausea Assessment/Plan Comment:: 35 yo female who presents with fever with possible sepsis. Possible sources include bacteremia and UTI. Will treat with Vancomcyin and levaquin.
[2016-10-04] MEDS: Sodium Chloride 0.9% 1,000 ML IV SCH (16:45)
[2016-10-04] MEDS: Levofloxacin/Dextrose 5%-Water 750 MG in Premix Bag 1 BAG IV SCH (16:46)
[2016-10-04] MEDS: Insulin Aspart 100 Units/ML 3 ML Pen SUBCUT SCH (16:51)
[2016-10-04] MEDS: Promethazine 25 MG/ML SDV IM PRN (20:10)
[2016-10-05] MEDS: Sodium Chloride 0.9% 1,000 ML IV SCH (03:07)
[2016-10-05] MEDS: Insulin Aspart 100 Units/ML 3 ML Pen SUBCUT SCH ×2 (06:32→14:56)
[2016-10-05 08:12] LABS: CHLORIDE,CL 112 mmol/L (98-110); SODIUM,NA 139 mmol/L (136-146)
[2016-10-05] MEDS ORDERED: Enoxaparin 40 MG/0.4 ML Syringe SUBCUT SCH (09:00)
[2016-10-05] MEDS: Promethazine 25 MG/ML SDV IM PRN (09:45)
[2016-10-05] MEDS ORDERED: Magnesium Sulfate/Water 4 GM in Premix Bag 1 BAG IV ONE (11:09)
[2016-10-05] MEDS ORDERED: Phosphorus #1 250 MG Tab PO SCH (12:00)
[2016-10-05] MEDS: Levofloxacin/Dextrose 5%-Water 750 MG in Premix Bag 1 BAG IV SCH (16:36)
--- NOTE | 2016-10-05 16:51 | PCM.DCSUM1 ---
Discharge Summary - Hospital Course Free Text/Narrative:: Admitting diagnoses: #1. 35-year-old female's with febrile issues and tachycardia and hypotension secondary to sepsis due to likely bacteremia and/or UTI. #2. Past medical history of multiple events of endocarditis with noncompliance of medication and recent diagnosis of bacteremia with MSSA positive blood cultures for which the patient refused treatment and left AMA. #3. Past medical history of IV drug use #4. Diabetes mellitus #5. Severe anaphylactic shock with use of penicillins Discharge/transfer diagnoses: #1. 35-year-old IV drug abuser who is currently non-febrile, slightly tachycardic, normotensive with bacteremia due to likely MSSA given her recent early admission for bacteremia that did come back with MSSA. Patient currently growing gram-positive cocci in clusters in most recent blood culture. #2. Multiple bouts of endocarditis that has not been deep treated due to noncompliance by patient. As well as recent bacteremia with MSSA positive blood cultures with noncompliance of the patient for treatment and recent AMA. #3. Past medical history of IV drug abuse #4. Diabetes mellitus #5. Anaphylactic shock with use of penicillins #6. Hypophosphatemia #7. Hypomagnesemia #8. Leukocytosis neutrophilic in nature #9. Mild thrombocytopenia with a platelet count of 112. #10. Mild hypocalcemia Consultations: none Procedures: None Hospitalization course: 35-year-old female repeat presented to s ER on the 2016 secondary to febrile issues and general unwell-being. Since patient was recently seen in inpatient status due to bacteremia the suspicion was that patient likely had a secondary bout of bacteremia along with a possible UTI. Blood cultures as well as lab [place] data was drawn and patient was admitted to the floor. Cultures were then shown to grow gram-positive cocci in clusters which likely indicated that the patient still had MSSA. She was prophylactically started on Levaquin for the UTI 750 mg to 24 hours. since the patient's blood cultures were likely going to show MSSA and her given her history of anaphylactic shock with penicillin usage the thought process was the patient was going to require long-term IV vancomycin or a alternative antibiotic. Due to the likelihood that if the patient were to be given a PICC line here she would sign out AMA and not get treatment the decision was made to consult her infectious disease specialist who has seen her in the past in [facility]. After speaking with Dr. Joseph, and explain the patient's situation ID agreed to have the patient transfered to [place] for in inpatient status. Patient was then subsequently given replacement for her phosphorus and magnesium and was then prepped to go to [place]. Patient was in ingredients with this plan and preferred to go to [place] for evaluation and treatment. Disposition on discharge: Transfer to [facility]. Condition on discharge: Patient was stable, afebrile, mildly tachycardic, normotensive and was agreeable to being transferred to [place]. Medications on discharge: Continuation of home medication, patient was given IV fluids 125 mL/hour NS during the transfer. - Discharge Data Discharge Date: 10/05/16 Discharge Disposition: DC/Tfer to [facility] 02 Condition: Fair - Discharge Diagnosis/Problem(s) (1) Leukocytosis SNOMED Code(s): 556663527, 134065200 ICD Code: D72.829 - ELEVATED WHITE BLOOD CELL COUNT, UNSPECIFIED Status: Acute Priority: High Current Visit: Yes (2) Bacteremia SNOMED Code(s): 3784440 ICD Code: R78.81 - BACTEREMIA Status: Acute Priority: High Current Visit: Yes (3) Endocarditis SNOMED Code(s): 02825415, 10203372 ICD Code: I38 - ENDOCARDITIS, VALVE UNSPECIFIED Status: Acute Priority: High Current Visit: Yes Qualifiers: Endocarditis type: infective Infective endocarditis organism: bacterial - Patient Instructions Diet: Diabetic Diet Activity: As Tolerated - Discharge Plan Home Medications: Home Meds Insulin Aspart [Novolog Flexpen] 0 unit SQ DAILY 09/10/16 [History] Sodium Chloride 0.9% [Normal Saline] 125 ml IV ASDIRECTED #0 bag 10/05/16 [Rx] Referrals: PCP,None [Primary Care Provider] - - Discharge Summary/Plan Comment DC Time >30 min.: No Discharge Summary/Plan Comment: Follow-up instructions: Patient to see Dr. Joseph and Dr. Torey Cabrera - Patient Data Vitals - Most Recent: Last Vital Signs Temp 37.1 C 10/05/16 11:00 Pulse 101 H 10/05/16 11:00 Resp 16 10/05/16 11:00 BP 100/59 L 10/05/16 11:00 Pulse Ox 98 10/05/16 11:00 Weight - Most Recent: 78.5 kg I&O - Last 24 hours: Intake & Output 10/05/16 10/05/16 10/05/16 06:59 14:59 22:59 Intake Total 2506 Output Total 800 Balance 1706 Lab Results - Last 24 hrs: Laboratory Results - last 24 hr 10/05/16 10/05/16 10/05/16 Range/Units 06:30 07:42 07:42 WBC 9.65 (4.0-11.0) K/uL RBC 3.92 L (4.30-5.90) M/uL Hgb 11.6 L (12.0-16.0) g/dL Hct 34.4 L (36.0-46.0) % MCV 87.8 (80.0-98.0) fL MCH 29.6 (27.0-32.0) pg MCHC 33.7 (31.0-37.0) g/dL RDW Std Deviation 45.5 (28.0-62.0) fl RDW Coeff of Gibran 14 (11.0-15.0) % Plt Count 112 L (150-400) K/uL MPV 11.10 (7.40-12.00) fL Neut % (Auto) 70.2 (48.0-80.0) % Lymph % (Auto) 13.9 L (16.0-40.0) % [place] % (Auto) 14.9 (0.0-15.0) % Eos % (Auto) 0.8 (0.0-7.0) % Baso % (Auto) 0.2 (0.0-1.5) % Neut # (Auto) 6.8 H (1.4-5.7) K/uL Lymph # (Auto) 1.3 (0.6-2.4) K/uL [place] # (Auto) 1.4 H (0.0-0.8) K/uL Eos # (Auto) 0.1 (0.0-0.7) K/uL Baso # (Auto) 0.0 (0.0-0.1) K/uL Nucleated RBC % 0.0 /100WBC Nucleated RBCs # 0 K/uL Sodium 139 (136-146) mmol/L Potassium 4.1 (3.5-5.1) mmol/L Chloride 112 H (98-110) mmol/L Carbon Dioxide 19 L (21-31) mmol/L BUN 6 (6.0-23.0) mg/dL Creatinine 0.8 (0.6-1.5) mg/dL Est Cr Clr Drug Dosing 103.55 mL/min Estimated GFR (MDRD) > 60.0 ml/min Glucose 129 H (60-110) mg/dL POC Glucose 96 (60-110) mg/dL Calcium 8.1 L (8.8-10.8) mg/dL Phosphorus 1.4 L (2.4-4.7) mg/dL Magnesium 1.3 L (1.5-2.3) mEq/L Total Bilirubin 0.4 (0.1-1.5) mg/dL AST 16 (5-40) IU/L ALT 15 (8-54) IU/L Alkaline Phosphatase 60 (40-150) Total Protein 6.1 (6.0-8.0) g/dL Albumin 3.1 L (3.5-5.0) g/dL Globulin 3.0 (2.0-3.5) g/dL Albumin/Globulin Ratio 1.0 L (1.3-2.8) Vancomycin Trough (5-15) ug/mL 10/05/16 10/05/16 Range/Units 12:08 13:08 WBC (4.0-11.0) K/uL RBC (4.30-5.90) M/uL Hgb (12.0-16.0) g/dL Hct (36.0-46.0) % MCV (80.0-98.0) fL MCH (27.0-32.0) pg MCHC (31.0-37.0) g/dL RDW Std Deviation (28.0-62.0) fl RDW Coeff of Gibran (11.0-15.0) % Plt Count (150-400) K/uL MPV (7.40-12.00) fL Neut % (Auto) (48.0-80.0) % Lymph % (Auto) (16.0-40.0) % [place] % (Auto) (0.0-15.0) % Eos % (Auto) (0.0-7.0) % Baso % (Auto) (0.0-1.5) % Neut # (Auto) (1.4-5.7) K/uL Lymph # (Auto) (0.6-2.4) K/uL [place] # (Auto) (0.0-0.8) K/uL Eos # (Auto) (0.0-0.7) K/uL Baso # (Auto) (0.0-0.1) K/uL Nucleated RBC % /100WBC Nucleated RBCs # K/uL Sodium (136-146) mmol/L Potassium (3.5-5.1) mmol/L Chloride (98-110) mmol/L Carbon Dioxide (21-31) mmol/L BUN (6.0-23.0) mg/dL Creatinine (0.6-1.5) mg/dL Est Cr Clr Drug Dosing mL/min Estimated GFR (MDRD) ml/min Glucose (60-110) mg/dL POC Glucose 99 (60-110) mg/dL Calcium (8.8-10.8) mg/dL Phosphorus (2.4-4.7) mg/dL Magnesium (1.5-2.3) mEq/L Total Bilirubin (0.1-1.5) mg/dL AST (5-40) IU/L ALT (8-54) IU/L Alkaline Phosphatase (40-150) Total Protein (6.0-8.0) g/dL Albumin (3.5-5.0) g/dL Globulin (2.0-3.5) g/dL Albumin/Globulin Ratio (1.3-2.8) Vancomycin Trough 8.9 (5-15) ug/mL Med Orders - Current: Current Medications Acetaminophen (Tylenol) 650 mg PO Q4H PRN PRN Reason: Pain (Mild 1-3)/fever Enoxaparin Sodium (Lovenox) 40 mg SUBCUT DAILY [facility] Last Admin: 10/05/16 09:45 Dose: 40 mg Sodium Chloride (Normal Saline) 1,000 mls @ 125 mls/hr IV ASDIRECTED [facility] Last Admin: 10/05/16 03:07 Dose: 125 mls/hr Levofloxacin/Dextrose 750 mg/ (Premix) 150 mls @ 100 mls/hr IV Q24H [facility] Last Admin: 10/04/16 16:46 Dose: 100 mls/hr Vancomycin HCl 1,250 mg/ (Sodium Chloride) 250 mls @ 166.667 mls/hr IV Q8H [facility] Ibuprofen (Motrin) 200 mg PO Q6H PRN PRN Reason: Pain (mild 1-3) Insulin Aspart (Novolog) 0 unit SUBCUT TIDAC VERONICA PRN Reason: Protocol Last Admin: 10/05/16 14:56 Dose: Not Given Ondansetron HCl (Zofran) 4 mg IVPUSH Q4H PRN PRN Reason: Nausea Last Admin: 10/04/16 17:35 Dose: 4 mg Promethazine HCl (Phenergan) 25 mg IM Q6H PRN PRN Reason: Nausea/Vomiting Last Admin: 10/05/16 09:45 Dose: 25 mg Sodium Phosphate (Neutra-Phos) 250 mg PO QID [facility] Last Admin: 10/05/16 12:34 Dose: 250 mg Vancomycin HCl (Pharmacy To Dose - Vancomycin) 1 dose .XX ASDIRECTED [facility] Discontinued Medications Acetaminophen (Tylenol Extra Strength) 1,000 mg PO ONETIME ONE Stop: 10/04/16 12:14 Last Admin: 10/04/16 12:24 Dose: 1,000 mg Sodium Chloride (Normal Saline) 1,000 mls @ 250 mls/hr IV STAT ONE Stop: 10/04/16 15:16 Last Infusion: 10/04/16 12:25 Dose: 999 mls/hr Vancomycin HCl 1 gm/ Sodium (Chloride) 250 mls @ 166 mls/hr IV ONETIME ONE Stop: 10/04/16 15:16 Last Admin: 10/04/16 13:55 Dose: 166 mls/hr Cefepime HCl 1 gm/ Premix 50 mls @ 100 mls/hr IV Q8H [facility] Last Admin: 10/04/16 17:06 Dose: Not Given Sodium Chloride (Normal Saline) 1,000 mls @ 999 mls/hr IV .Bolus ONE Stop: 10/04/16 16:26 Last Admin: 10/04/16 15:38 Dose: 999 mls/hr Vancomycin HCl 1 gm/ Sodium (Chloride) 250 mls @ 166.667 mls/hr IV Q8H [facility] Last Admin: 10/05/16 14:53 Dose: 166.667 mls/hr Magnesium Sulfate 4 gm/ Premix 100 mls @ 50 mls/hr IV ONETIME ONE Stop: 10/05/16 13:08 Last Admin: 10/05/16 12:34 Dose: 50 mls/hr Lidocaine (Xylocaine-Mpf 2%) 5 ml INJECT ONETIME ONE Stop: 10/04/16 11:33 Last Admin: 10/04/16 12:30 Dose: Not Given Potassium Chloride (Klor-Con M20) 60 meq PO DAILY STA Stop: 10/04/16 13:49 Last Admin: 10/04/16 13:56 Dose: 60 meq Potassium Chloride (Klor-Con M20) 40 meq PO ONETIME ONE Stop: 10/04/16 15:42 Last Admin: 10/04/16 17:06 Dose: Not Given *Q Meaningful Use (DIS) - VTE *Q VTE Criteria *Q: - Stroke *Q Stroke Criteria *Q: - AMI *Q AMI Criteria *Q:
[2016-10-05 19:32] VITALS: BP 97/55
== END 2016-10-05 17:00 | DRG 872 ==
LOC: MW.ED 10:57 → MW.MS 14:20
PROVIDERS: ADMIT Internal Medicine; ATTEND Internal Medicine
DX: A41.01 Sepsis due to Methicillin susceptible Staphylococcus aureus (principal); R78.81 Bacteremia; N39.0 Urinary tract infection, site not specified; I38 Endocarditis, valve unspecified; I42.9 Cardiomyopathy, unspecified; Q61.3 Polycystic kidney, unspecified; F19.10 Other psychoactive substance abuse, uncomplicated; E10.9 Type 1 diabetes mellitus without complications; E83.39 Other disorders of phosphorus metabolism; E83.42 Hypomagnesemia; D72.828 Other elevated white blood cell count; E83.51 Hypocalcemia; I34.1 Nonrheumatic mitral (valve) prolapse; G40.909 Epilepsy, unspecified, not intractable, without status epilepticus; F17.200 Nicotine dependence, unspecified, uncomplicated; Z85.3 Personal history of malignant neoplasm of breast; Z88.0 Allergy status to penicillin; Z88.8 Allergy status to other drugs, medicaments and biological substances; Z91.14 Patient's other noncompliance with medication regimen; Z79.4 Long term (current) use of insulin
CPT/HCPCS: 36415; 80053; 80202; 80305; 81001; 81025; 82550; 82962; 83605; 83735; 84100; 85025; 87040; 87077; 87086; 87186; 93005; 96361; 96365; 99284; 99284-25; A9270-GY; J1650; J1956; J2405; J2550; J3370; J3475; J7040; J7050

== ENCOUNTER 2016-11-18 21:23 | Emergency (ER) | payer SELFPAY ==
[2016-11-18 21:30] VITALS: BP 119/74
--- NOTE | 2016-11-18 21:52 | EDM.PDOC ---
ED HPI GENERAL MEDICAL PROBLEM - General Chief Complaint: Back Pain or Injury Stated Complaint: HEAD ACKE, PAIN IN HEAD BACK PAIN, THROWING UP Time Seen by Provider: 11/18/16 21:51 - History of Present Illness INITIAL COMMENTS - FREE TEXT/NARRATIVE: HISTORY AND PHYSICAL: History of present illness: Patient 35-year-old white female presents with a concern of headache that is resolved he states he felt like there was a pop in her neck she does subsequent headache but this is now resolved completely she has no complaints Review of systems: As per history of present illness and below otherwise all systems reviewed and negative. Past medical history: As per history of present illness and as reviewed below otherwise noncontributory. Surgical history: As per history of present illness and as reviewed below otherwise noncontributory. Social history: No reported history of drug or alcohol abuse. Family history: As per history of present illness and as reviewed below otherwise noncontributory. Physical exam: HEENT: Atraumatic, normocephalic, pupils reactive, negative for conjunctival pallor or scleral icterus, mucous membranes moist, throat clear, neck supple, nontender, trachea midline. Lungs: Clear to auscultation, breath sounds equal bilaterally, chest nontender. Heart: S1S2, regular, negative for clicks, rubs, or JVD. Abdomen: Soft, nondistended, nontender. Negative for masses or hepatosplenomegaly. Negative for costovertebral tenderness. Pelvis: Stable nontender. Genitourinary: Deferred. Rectal: Deferred. Extremities: Atraumatic, negative for cords or calf pain. Neurovascular unremarkable. Neuro: Awake, alert, oriented. Cranial nerves II through XII unremarkable. Cerebellum unremarkable. Motor and sensory unremarkable throughout. Exam nonfocal. Diagnostics: None Therapeutics: None Impression: #1 headache resolved #2 medical screening exam Definitive disposition and diagnosis as appropriate pending reevaluation and review of above. Neck Pain Score (Numeric/FACES): 4 - Related Data Allergies Allergy/AdvReac Type Severity Reaction Status Date / Time codeine Allergy Shortness Verified 10/04/16 11:07 of Breath Penicillins Allergy Anaphylactic Verified 10/04/16 11:07 Shock sulfamethoxazole Allergy Hives Verified 10/04/16 11:07 [From Bactrim] trimethoprim [From Bactrim] Allergy Hives Verified 10/04/16 11:07 Home Meds: Home Meds Insulin Aspart [Novolog Flexpen] 0 unit SQ DAILY 09/10/16 [History] Sodium Chloride 0.9% [Normal Saline] 125 ml IV ASDIRECTED #0 bag 10/05/16 [Rx] Past Medical History - Past Health History Medical/Surgical History: Denies Medical/Surgical History HEENT History: Reports: Other (See Below) Other HEENT History: missing teeth Cardiovascular History: Reports: Bacterial Endocarditis, Cardiomyopathy, Other ( See Below) Other Cardiovascular History: Mitral Valve Prolapse Respiratory History: Reports: None Gastrointestinal History: Reports: Cholelithiasis Other Genitourinary History: polycystic kidney disease 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: Musculoskeletal History: Reports: Other (See Below) Other Musculoskeletal History: chronic hip pain Neurological History: Reports: Seizure Psychiatric History: Reports: Addiction, Anxiety Endocrine/Metabolic History: Reports: Diabetes, Type I Hematologic History: Reports: Other (See Below) Other Hematologic History: pt reports low white blood cell count Oncologic (Cancer) History: Reports: Breast Dermatologic History: Reports: Cellulitis, Chronic Cellulitis - Infectious Disease History Infectious Disease History: Reports: Chicken Pox, Measles Other Infectious Disease History: MSSA - Past Surgical History Head Surgeries/Procedures: Reports: None Female Surgical History: Reports: Ureteral Stent Oncologic Surgical History: Reports: Lumpectomy Other Oncologic Surgeries/Procedures: left breast lumpectomy Social & Family History - Family History Family Medical History: Noncontributory - Tobacco Use Smoking Status *Q: Current Every Day Smoker Years of Tobacco use: 20 Packs/Tins Daily: 1 Second Hand Smoke Exposure: Yes - Caffeine Use Caffeine Use: Reports: Coffee, Soda Caffeine Use Comment: 2-4 daily - Recreational Drug Use Recreational Drug Use: Yes Drug Use in Last 12 Months: Yes Recreational Drug Type: Reports: Methamphetamine Other Recreational Drug Type: " Pt reports I use everything. If you can put it in a needle Ill use it. " Recreational Drug Use Frequency: Daily Recreational Drug Last Use: pt reports coming off opiates 6 days ago ED ROS GENERAL - Review of Systems Review Of Systems: ROS reveals no pertinent complaints other than HPI. ED EXAM, GENERAL - Physical Exam Exam: See Below (See dictation) Course - Vital Signs Last Recorded V/S: Last Vital Signs Temp 36.7 C 11/18/16 21:26 Pulse 110 H 11/18/16 21:26 Resp 14 11/18/16 21:26 BP 119/74 11/18/16 21:26 Pulse Ox 100 11/18/16 21:26 Departure - Departure Time of Disposition: 21:51 Disposition: Home, Self-Care 01 Condition: Good Clinical Impression: Encounter for medical screening examination - Discharge Information Referrals: PCP,None [Primary Care Provider] - Additional Instructions: The following information is given to patients seen in the emergency department who are being discharged to home. This information is to outline your options for follow-up care. We provide all patients seen in our emergency department with a follow-up referral. The need for follow-up, as well as the timing and circumstances, are variable depending upon the specifics of your emergency department visit. If you don't have a primary care physician on staff, we will provide you with a referral. We always advise you to contact your personal physician following an emergency department visit to inform them of the circumstance of the visit and for follow-up with them and/or the need for any referrals to a consulting specialist. The emergency department will also refer you to a specialist when appropriate. This referral assures that you have the opportunity for followup care with a specialist. All of these measure are taken in an effort to provide you with optimal care, which includes your followup. Under all circumstances we always encourage you to contact your private physician who remains a resource for coordinating your care. When calling for followup care, please make the office aware that this follow-up is from your recent emergency room visit. If for any reason you are refused follow-up, please contact the [facility] emergency department at and asked to speak to the emergency department charge nurse. [facility] [address] [place] [id number] Follow-up primary care routine appointment return as needed as discussed
== END 2016-11-18 22:00 | disposition home or self-care (01) ==
LOC: MW.ED 21:23
DX: R51 Headache (principal); E10.9 Type 1 diabetes mellitus without complications; F17.210 Nicotine dependence, cigarettes, uncomplicated; Z96.0 Presence of urogenital implants; Z98.890 Other specified postprocedural states; Z79.4 Long term (current) use of insulin; Z88.0 Allergy status to penicillin; Z88.2 Allergy status to sulfonamides; Z88.1 Allergy status to other antibiotic agents; Z88.5 Allergy status to narcotic agent
CPT/HCPCS: 99282; 99283

== ENCOUNTER 2017-10-16 19:01 | Emergency (ER) | payer SELFPAY ==
--- NOTE | 2017-10-16 20:32 | PCM.SN ---
- Free Text/Narrative Note: Patient was triaged but left prior to coming back into the emergency room. I had not evaluated this patient.
== END 2017-10-16 20:34 | disposition left against medical advice (07) ==
LOC: MW.ED 19:01
DX: Z53.20 Procedure and treatment not carried out because of patient's decision for unspecified reasons (principal)
CPT/HCPCS: 99281

== ENCOUNTER 2017-11-30 02:35 | Emergency (ER) | payer SELFPAY ==
[2017-11-30 02:49] VITALS: BP 125/68
--- NOTE | 2017-11-30 04:36 | EDM.PDOC ---
ED HPI GENERAL MEDICAL PROBLEM - General Chief Complaint: Abdominal Pain Stated Complaint: STOMACH PAINS Time Seen by Provider: 11/30/17 04:33 - History of Present Illness INITIAL COMMENTS - FREE TEXT/NARRATIVE: HISTORY AND PHYSICAL: History of present illness: Patient's a 36-year-old female presents with a concern of abdominal pain she denies fever chills nausea vomiting or other complaints she has history of polysubstance abuse. Review of systems: As per history of present illness and below otherwise all systems reviewed and negative. Past medical history: As per history of present illness and as reviewed below otherwise noncontributory. Surgical history: As per history of present illness and as reviewed below otherwise noncontributory. Social history: No reported history of drug or alcohol abuse. Family history: As per history of present illness and as reviewed below otherwise noncontributory. Physical exam: HEENT: Atraumatic, normocephalic, pupils reactive, negative for conjunctival pallor or scleral icterus, mucous membranes moist, throat clear, neck supple, nontender, trachea midline. Lungs: Clear to auscultation, breath sounds equal bilaterally, chest nontender. Heart: S1S2, regular, negative for clicks, rubs, or JVD. Abdomen: Soft, nondistended, nontender. Negative for masses or hepatosplenomegaly. Negative for costovertebral tenderness. Pelvis: Stable nontender. Genitourinary: Deferred. Rectal: Deferred. Extremities: Atraumatic, negative for cords or calf pain. Neurovascular unremarkable. Neuro: Awake, alert, oriented. Cranial nerves II through XII unremarkable. Cerebellum unremarkable. Motor and sensory unremarkable throughout. Exam nonfocal. Diagnostics: CBC CMP UA Therapeutics: Rocephin 1 g IM Impression: #1 abdominal pain #2 UTI #3 polysubstance abuse Definitive disposition and diagnosis as appropriate pending reevaluation and review of above. lower back Pain Score (Numeric/FACES): 7 - Related Data Allergies Allergy/AdvReac Type Severity Reaction Status Date / Time codeine Allergy Shortness Verified 11/30/17 02:45 of Breath Penicillins Allergy Anaphylactic Verified 11/30/17 02:45 Shock sulfamethoxazole Allergy Hives Verified 11/30/17 02:45 [From Bactrim] trimethoprim [From Bactrim] Allergy Hives Verified 11/30/17 02:45 Home Meds: Home Meds Insulin Regular, Human [Humulin R] 30 unit SUBCUT DAILY 11/30/17 [History] Past Medical History - Past Health History Medical/Surgical History: Denies Medical/Surgical History HEENT History: Reports: Other (See Below) Other HEENT History: missing teeth Cardiovascular History: Reports: Bacterial Endocarditis, Cardiomyopathy, Other ( See Below) Other Cardiovascular History: Mitral Valve Prolapse Respiratory History: Reports: None Gastrointestinal History: Reports: Cholelithiasis Other Genitourinary History: polycystic kidney disease 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: Musculoskeletal History: Reports: Other (See Below) Other Musculoskeletal History: chronic hip pain Neurological History: Reports: Seizure Psychiatric History: Reports: Addiction, Anxiety Endocrine/Metabolic History: Reports: Diabetes, Type I Hematologic History: Reports: Other (See Below) Other Hematologic History: pt reports low white blood cell count Oncologic (Cancer) History: Reports: Breast Dermatologic History: Reports: Cellulitis, Chronic Cellulitis - Infectious Disease History Infectious Disease History: Reports: Chicken Pox Other Infectious Disease History: MSSA - Past Surgical History Head Surgeries/Procedures: Reports: None Female Surgical History: Reports: Ureteral Stent Oncologic Surgical History: Reports: Lumpectomy Other Oncologic Surgeries/Procedures: left breast lumpectomy Social & Family History - Family History Family Medical History: Noncontributory - Tobacco Use Smoking Status *Q: Current Every Day Smoker Years of Tobacco use: 25 Packs/Tins Daily: 1 - Caffeine Use Caffeine Use: Reports: Coffee, Energy Drinks, Soda, Tea Caffeine Use Comment: 2-4 daily - Recreational Drug Use Recreational Drug Use: Yes Drug Use in Last 12 Months: Yes Recreational Drug Type: Reports: Marijuana/Hashish, Methamphetamine, Oxycodone Recreational Drug Use Frequency: Daily ED ROS GENERAL - Review of Systems Review Of Systems: ROS reveals no pertinent complaints other than HPI. ED EXAM, GENERAL - Physical Exam Exam: See Below (See dictation) Course - Vital Signs Last Recorded V/S: Last Vital Signs Temp 36.6 C 11/30/17 02:46 Pulse 139 H 11/30/17 02:46 Resp 20 11/30/17 02:46 BP 125/68 11/30/17 02:46 Pulse Ox 99 11/30/17 02:46 - Orders/Labs/Meds Labs: Laboratory Tests 11/30/17 11/30/17 11/30/17 Range/Units 02:44 02:52 02:52 WBC (4.0-11.0) K/uL RBC (4.30-5.90) M/uL Hgb (12.0-16.0) g/dL Hct (36.0-46.0) % MCV (80.0-98.0) fL MCH (27.0-32.0) pg MCHC (31.0-37.0) g/dL RDW Std Deviation (28.0-62.0) fl RDW Coeff of Gibran (11.0-15.0) % Plt Count (150-400) K/uL MPV (7.40-12.00) fL Add Manual Diff Neutrophils % (Manual) (48.0-80.0) % Band Neutrophils % % Lymphocytes % (Manual) (16.0-40.0) % Monocytes % (Manual) (0.0-15.0) % Nucleated RBC % /100WBC Absolute Seg Neuts (1.4-5.7) Band Neutrophils # Lymphocytes # (Manual) (0.6-2.4) Monocytes # (Manual) (0.0-0.8) Nucleated RBCs # K/uL Sodium (136-145) mmol/L Potassium (3.5-5.1) mmol/L Chloride (98-107) mmol/L Carbon Dioxide (21.0-32.0) mmol/L BUN (7.0-18.0) mg/dL Creatinine (0.6-1.0) mg/dL Est Cr Clr Drug Dosing mL/min Estimated GFR (MDRD) ml/min Glucose (74-106) mg/dL POC Glucose 94 (60-110) mg/dL Calcium (8.5-10.1) mg/dL Total Bilirubin (0.2-1.0) mg/dL AST (15-37) IU/L ALT (14-63) IU/L Alkaline Phosphatase (46-116) U/L Total Protein (6.4-8.2) g/dL Albumin (3.4-5.0) g/dL Globulin (2.0-3.5) g/dL Albumin/Globulin Ratio (1.3-2.8) Urine Color YELLOW Urine Appearance CLEAR Urine pH 5.0 (5.0-8.0) Ur Specific [place] 1.025 (1.001-1.035) Urine Protein NEGATIVE (NEGATIVE) mg/dL Urine Glucose (UA) NEGATIVE (NEGATIVE) mg/dL Urine Ketones NEGATIVE (NEGATIVE) mg/dL Urine Occult Blood NEGATIVE (NEGATIVE) Urine Nitrite POSITIVE H (NEGATIVE) Urine Bilirubin NEGATIVE (NEGATIVE) Urine Urobilinogen 0.2 (<2.0) EU/dL Ur Leukocyte Esterase NEGATIVE (NEGATIVE) Urine RBC NONE SEEN (0-2/HPF) Urine WBC 0-1 (0-5/HPF) Ur Epithelial Cells FEW (NONE-FEW) Urine Bacteria 2+ H (NEGATIVE) Urine Mucus LIGHT (NONE-MOD) Urine HCG, Qual NEGATIVE (NEGATIVE) 11/30/17 11/30/17 Range/Units 03:30 03:35 WBC 16.87 H (4.0-11.0) K/uL RBC 4.45 (4.30-5.90) M/uL Hgb 13.3 (12.0-16.0) g/dL Hct 39.1 (36.0-46.0) % MCV 87.9 (80.0-98.0) fL MCH 29.9 (27.0-32.0) pg MCHC 34.0 (31.0-37.0) g/dL RDW Std Deviation 43.7 (28.0-62.0) fl RDW Coeff of Gibran 14 (11.0-15.0) % Plt Count 213 (150-400) K/uL MPV 9.80 (7.40-12.00) fL Add Manual Diff YES Neutrophils % (Manual) 81 H (48.0-80.0) % Band Neutrophils % 7 % Lymphocytes % (Manual) 7 L (16.0-40.0) % Monocytes % (Manual) 5 (0.0-15.0) % Nucleated RBC % 0.0 /100WBC Absolute Seg Neuts 13.7 H (1.4-5.7) Band Neutrophils # 1.2 Lymphocytes # (Manual) 1.2 (0.6-2.4) Monocytes # (Manual) 0.8 (0.0-0.8) Nucleated RBCs # 0 K/uL Sodium 137 (136-145) mmol/L Potassium 4.8 (3.5-5.1) mmol/L Chloride 106 (98-107) mmol/L Carbon Dioxide 19.2 L (21.0-32.0) mmol/L BUN 10 (7.0-18.0) mg/dL Creatinine 1.1 H (0.6-1.0) mg/dL Est Cr Clr Drug Dosing 74.60 mL/min Estimated GFR (MDRD) 56.5 ml/min Glucose 97 (74-106) mg/dL POC Glucose (60-110) mg/dL Calcium 7.5 L (8.5-10.1) mg/dL Total Bilirubin 0.4 (0.2-1.0) mg/dL AST 37 (15-37) IU/L ALT 27 (14-63) IU/L Alkaline Phosphatase 76 (46-116) U/L Total Protein 6.6 (6.4-8.2) g/dL Albumin 3.4 (3.4-5.0) g/dL Globulin 3.2 (2.0-3.5) g/dL Albumin/Globulin Ratio 1.1 L (1.3-2.8) Urine Color Urine Appearance Urine pH (5.0-8.0) Ur Specific [place] (1.001-1.035) Urine Protein (NEGATIVE) mg/dL Urine Glucose (UA) (NEGATIVE) mg/dL Urine Ketones (NEGATIVE) mg/dL Urine Occult Blood (NEGATIVE) Urine Nitrite (NEGATIVE) Urine Bilirubin (NEGATIVE) Urine Urobilinogen (<2.0) EU/dL Ur Leukocyte Esterase (NEGATIVE) Urine RBC (0-2/HPF) Urine WBC (0-5/HPF) Ur Epithelial Cells (NONE-FEW) Urine Bacteria (NEGATIVE) Urine Mucus (NONE-MOD) Urine HCG, Qual (NEGATIVE) Meds: Medications Discontinued Medications Generic Name Dose Route Start Last Admin Trade Name Freq PRN Reason Stop Dose Admin Ceftriaxone Sodium 1,000 mg/ 2.1 mls @ 2.1 mls/sec 11/30/17 04:30 Lidocaine HCl IM 11/30/17 04:31 ONETIME ONE Departure - Departure Time of Disposition: 04:34 Disposition: Home, Self-Care 01 Condition: Good Clinical Impression: UTI (urinary tract infection), Substance abuse - Discharge Information *PRESCRIPTION DRUG MONITORING PROGRAM REVIEWED*: Not Applicable *COPY OF PRESCRIPTION DRUG MONITORING REPORT IN PATIENT MICAELA: Not Applicable Referrals: PCP,None [Primary Care Provider] - Additional Instructions: The following information is given to patients seen in the emergency department who are being discharged to home. This information is to outline your options for follow-up care. We provide all patients seen in our emergency department with a follow-up referral. The need for follow-up, as well as the timing and circumstances, are variable depending upon the specifics of your emergency department visit. If you don't have a primary care physician on staff, we will provide you with a referral. We always advise you to contact your personal physician following an emergency department visit to inform them of the circumstance of the visit and for follow-up with them and/or the need for any referrals to a consulting specialist. The emergency department will also refer you to a specialist when appropriate. This referral assures that you have the opportunity for followup care with a specialist. All of these measure are taken in an effort to provide you with optimal care, which includes your followup. Under all circumstances we always encourage you to contact your private physician who remains a resource for coordinating your care. When calling for followup care, please make the office aware that this follow-up is from your recent emergency room visit. If for any reason you are refused follow-up, please contact the [facility] emergency department at and asked to speak to the emergency department charge nurse. Keflex as prescribed follow-up primary medical doctor. Using drugs return as needed as discussed
== END 2017-11-30 04:52 | disposition home or self-care (01) ==
LOC: MW.ED 02:35
DX: N39.0 Urinary tract infection, site not specified (principal); F19.10 Other psychoactive substance abuse, uncomplicated; Z88.0 Allergy status to penicillin; Z88.2 Allergy status to sulfonamides; Z88.5 Allergy status to narcotic agent; Z79.4 Long term (current) use of insulin
CPT/HCPCS: 36415; 80053; 81001; 81025; 82962; 85025; 96372; 99283; J0696

== ENCOUNTER 2018-06-02 06:21 | Emergency (ER) | payer SELFPAY ==
--- NOTE | 2018-06-02 06:32 | EDM.PDOC ---
ED HPI GENERAL MEDICAL PROBLEM - General Chief Complaint: General Stated Complaint: MEDICAL CLEARANCE Time Seen by Provider: 06/02/18 06:30 - History of Present Illness INITIAL COMMENTS - FREE TEXT/NARRATIVE: HISTORY AND PHYSICAL: History of present illness: Patient is 37-year-old female in custody of law enforcement who presents with for medical clearance she denies complaints Review of systems: As per history of present illness and below otherwise all systems reviewed and negative. Past medical history: As per history of present illness and as reviewed below otherwise noncontributory. Surgical history: As per history of present illness and as reviewed below otherwise noncontributory. Social history: No reported history of drug or alcohol abuse. Family history: As per history of present illness and as reviewed below otherwise noncontributory. Physical exam: HEENT: Atraumatic, normocephalic, pupils reactive, negative for conjunctival pallor or scleral icterus, mucous membranes moist, throat clear, neck supple, nontender, trachea midline. Lungs: Clear to auscultation, breath sounds equal bilaterally, chest nontender. Heart: S1S2, regular, negative for clicks, rubs, or JVD. Abdomen: Soft, nondistended, nontender. Negative for masses or hepatosplenomegaly. Negative for costovertebral tenderness. Pelvis: Stable nontender. Genitourinary: Deferred. Rectal: Deferred. Extremities: Atraumatic, negative for cords or calf pain. Neurovascular unremarkable. Neuro: Awake, alert, oriented. Cranial nerves II through XII unremarkable. Cerebellum unremarkable. Motor and sensory unremarkable throughout. Exam nonfocal. Diagnostics: None Therapeutics: None Impression: #1 medical clearance for incarceration Definitive disposition and diagnosis as appropriate pending reevaluation and review of above. - Related Data Allergies Allergy/AdvReac Type Severity Reaction Status Date / Time codeine Allergy Shortness Verified 06/02/18 06:28 of Breath Penicillins Allergy Anaphylactic Verified 06/02/18 06:28 Shock sulfamethoxazole Allergy Hives Verified 06/02/18 06:28 [From Bactrim] trimethoprim [From Bactrim] Allergy Hives Verified 06/02/18 06:28 Home Meds: Home Meds Insulin Aspart [NovoLOG] 30 units SQ DAILY 12/27/17 [History] Insulin Lispro [HumaLOG] 30 units SQ DAILY 12/27/17 [History] Past Medical History - Past Health History Medical/Surgical History: Denies Medical/Surgical History HEENT History: Reports: Other (See Below) Other HEENT History: missing teeth Cardiovascular History: Reports: Bacterial Endocarditis, Cardiomyopathy, Other ( See Below) Other Cardiovascular History: Mitral Valve Prolapse Respiratory History: Reports: None Gastrointestinal History: Reports: Cholelithiasis Other Genitourinary History: polycystic kidney disease 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: Musculoskeletal History: Reports: Other (See Below) Other Musculoskeletal History: chronic hip pain Neurological History: Reports: Seizure Psychiatric History: Reports: Addiction, Anxiety Endocrine/Metabolic History: Reports: Diabetes, Type I Hematologic History: Reports: Other (See Below) Other Hematologic History: pt reports low white blood cell count Oncologic (Cancer) History: Reports: Breast Dermatologic History: Reports: Cellulitis, Chronic Cellulitis - Infectious Disease History Infectious Disease History: Reports: Chicken Pox Other Infectious Disease History: MSSA - Past Surgical History Head Surgeries/Procedures: Reports: None Female Surgical History: Reports: Ureteral Stent Oncologic Surgical History: Reports: Lumpectomy Other Oncologic Surgeries/Procedures: left breast lumpectomy Social & Family History - Family History Family Medical History: Noncontributory - Caffeine Use Caffeine Use: Reports: Coffee, Energy Drinks, Soda, Tea Caffeine Use Comment: 2-4 daily ED ROS GENERAL - Review of Systems Review Of Systems: ROS reveals no pertinent complaints other than HPI. ED EXAM, GENERAL - Physical Exam Exam: See Below (See dictation) Course - Vital Signs Last Recorded V/S: Last Vital Signs Temp 35.8 C 06/02/18 06:26 Pulse 103 H 06/02/18 06:26 Resp 18 06/02/18 06:26 BP 153/102 H 06/02/18 06:26 Pulse Ox 99 06/02/18 06:26 Departure - Departure Time of Disposition: 06:32 Disposition: Home, Self-Care 01 Condition: Good Clinical Impression: Medical clearance for incarceration - Discharge Information Referrals: PCP,None [Primary Care Provider] - Additional Instructions: The following information is given to patients seen in the emergency department who are being discharged to home. This information is to outline your options for follow-up care. We provide all patients seen in our emergency department with a follow-up referral. The need for follow-up, as well as the timing and circumstances, are variable depending upon the specifics of your emergency department visit. If you don't have a primary care physician on staff, we will provide you with a referral. We always advise you to contact your personal physician following an emergency department visit to inform them of the circumstance of the visit and for follow-up with them and/or the need for any referrals to a consulting specialist. The emergency department will also refer you to a specialist when appropriate. This referral assures that you have the opportunity for followup care with a specialist. All of these measure are taken in an effort to provide you with optimal care, which includes your followup. Under all circumstances we always encourage you to contact your private physician who remains a resource for coordinating your care. When calling for followup care, please make the office aware that this follow-up is from your recent emergency room visit. If for any reason you are refused follow-up, please contact the [facility] emergency department at and asked to speak to the emergency department charge nurse. Follow-up primary medical doctor return as needed as discussed
[2018-06-02 06:49] VITALS: BP 132/88
== END 2018-06-02 06:44 | disposition home or self-care (01) ==
LOC: MW.ED 06:21
DX: Z02.89 Encounter for other administrative examinations (principal); E10.9 Type 1 diabetes mellitus without complications; Z88.5 Allergy status to narcotic agent; Z88.0 Allergy status to penicillin; Z88.2 Allergy status to sulfonamides; Z88.1 Allergy status to other antibiotic agents
CPT/HCPCS: 99283

== ENCOUNTER 2018-09-28 23:17 | Emergency (ER) | payer SELFPAY ==
--- NOTE | 2018-09-28 23:27 | EDM.PDOC ---
ED HPI GENERAL MEDICAL PROBLEM - General Chief Complaint: Upper Extremity Injury/Pain Stated Complaint: MEDICAL CLEARANCE Time Seen by Provider: 09/28/18 23:24 - History of Present Illness INITIAL COMMENTS - FREE TEXT/NARRATIVE: HISTORY AND PHYSICAL: History of present illness: Patient 37-year-old female in custody of one enforcement is here for medical clearance she states she injured her second digit of her right hand earlier had drained a subungual hematoma and has some subsequent redness. There's been no fever chills nausea vomiting or other complaints Review of systems: As per history of present illness and below otherwise all systems reviewed and negative. Past medical history: As per history of present illness and as reviewed below otherwise noncontributory. Surgical history: As per history of present illness and as reviewed below otherwise noncontributory. Social history: No reported history of drug or alcohol abuse. Family history: As per history of present illness and as reviewed below otherwise noncontributory. Physical exam: HEENT: Atraumatic, normocephalic, pupils reactive, negative for conjunctival pallor or scleral icterus, mucous membranes moist, throat clear, neck supple, nontender, trachea midline. Lungs: Clear to auscultation, breath sounds equal bilaterally, chest nontender. Heart: S1S2, regular, negative for clicks, rubs, or JVD. Abdomen: Soft, nondistended, nontender. Negative for masses or hepatosplenomegaly. Negative for costovertebral tenderness. Pelvis: Stable nontender. Genitourinary: Deferred. Rectal: Deferred. Extremities: First digit right hand has an area of erythema without induration fluctuance or discharge CMS neurovascular exam is unremarkable Neuro: Awake, alert, oriented. Cranial nerves II through XII unremarkable. Cerebellum unremarkable. Motor and sensory unremarkable throughout. Exam nonfocal. Diagnostics: None Therapeutics: None Impression: #1 medical clearance for incarceration #2 hand injury (second digit early superficial cellulitis) Definitive disposition and diagnosis as appropriate pending reevaluation and review of above. - Related Data Allergies Allergy/AdvReac Type Severity Reaction Status Date / Time codeine Allergy Shortness Verified 09/28/18 23:22 of Breath Penicillins Allergy Anaphylactic Verified 09/28/18 23:22 Shock sulfamethoxazole Allergy Hives Verified 09/28/18 23:22 [From Bactrim] trimethoprim [From Bactrim] Allergy Hives Verified 09/28/18 23:22 Home Meds: Home Meds Insulin Aspart [NovoLOG] 30 units SQ DAILY 12/27/17 [History] Insulin Lispro [HumaLOG] 30 units SQ DAILY 12/27/17 [History] Past Medical History - Past Health History Medical/Surgical History: Denies Medical/Surgical History HEENT History: Reports: Other (See Below) Other HEENT History: missing teeth Cardiovascular History: Reports: Bacterial Endocarditis, Cardiomyopathy, Other ( See Below) Other Cardiovascular History: Mitral Valve Prolapse Respiratory History: Reports: None Gastrointestinal History: Reports: Cholelithiasis Other Genitourinary History: polycystic kidney 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: Musculoskeletal History: Reports: Other (See Below) Other Musculoskeletal History: chronic hip pain Neurological History: Reports: Seizure Psychiatric History: Reports: Addiction, Anxiety Endocrine/Metabolic History: Reports: Diabetes, Type I Hematologic History: Reports: Other (See Below) Other Hematologic History: pt reports low white blood cell count Oncologic (Cancer) History: Reports: Breast Dermatologic History: Reports: Cellulitis, Chronic Cellulitis - Infectious Disease History Infectious Disease History: Reports: Chicken Pox Other Infectious Disease History: MSSA - Past Surgical History Head Surgeries/Procedures: Reports: None Female Surgical History: Reports: Ureteral Stent Oncologic Surgical History: Reports: Lumpectomy Other Oncologic Surgeries/Procedures: left breast lumpectomy Social & Family History - Family History Family Medical History: Noncontributory - Caffeine Use Caffeine Use: Reports: Coffee, Energy Drinks, Soda, Tea Caffeine Use Comment: 2-4 daily Review of Systems - Review of Systems Review Of Systems: ROS reveals no pertinent complaints other than HPI. ED EXAM, GENERAL - Physical Exam Exam: See Below (See dictation) Departure - Departure Time of Disposition: 23:26 Disposition: Home, Self-Care 01 Condition: Good Clinical Impression: Medical clearance for incarceration, Cellulitis - Discharge Information Referrals: PCP,None [Primary Care Provider] - Additional Instructions: The following information is given to patients seen in the emergency department who are being discharged to home. This information is to outline your options for follow-up care. We provide all patients seen in our emergency department with a follow-up referral. The need for follow-up, as well as the timing and circumstances, are variable depending upon the specifics of your emergency department visit. If you don't have a primary care physician on staff, we will provide you with a referral. We always advise you to contact your personal physician following an emergency department visit to inform them of the circumstance of the visit and for follow-up with them and/or the need for any referrals to a consulting specialist. The emergency department will also refer you to a specialist when appropriate. This referral assures that you have the opportunity for followup care with a specialist. All of these measure are taken in an effort to provide you with optimal care, which includes your followup. Under all circumstances we always encourage you to contact your private physician who remains a resource for coordinating your care. When calling for followup care, please make the office aware that this follow-up is from your recent emergency room visit. If for any reason you are refused follow-up, please contact the [facility] emergency department at and asked to speak to the emergency department charge nurse. Keflex as prescribed follow-up right medical doctor 1-2 days return as needed as discussed
[2018-09-28 23:28] VITALS: BP 131/79
[2018-09-28] MEDS ORDERED: Ibuprofen 400 MG Tab PO ONE (23:34)
== END 2018-09-28 23:45 | disposition home or self-care (01) ==
LOC: MW.ED 23:17
DX: S61.210A Laceration without foreign body of right index finger without damage to nail, initial encounter (principal); L03.011 Cellulitis of right finger; E10.9 Type 1 diabetes mellitus without complications; F41.9 Anxiety disorder, unspecified; Z88.5 Allergy status to narcotic agent
CPT/HCPCS: 99283; A9270

== ENCOUNTER 2018-12-19 23:14 | Emergency (ER) | payer SELFPAY ==
--- NOTE | 2018-12-19 23:37 | EDM.PDOC ---
ED HPI GENERAL MEDICAL PROBLEM - General Chief Complaint: General Stated Complaint: MEDICAL CLEARANCE Time Seen by Provider: 12/19/18 23:19 Source of Information: Reports: Patient History Limitations: Reports: No Limitations - History of Present Illness INITIAL COMMENTS - FREE TEXT/NARRATIVE: HISTORY AND PHYSICAL: History of present illness: Patient is a 38-year-old female presents to the ED today with law enforcement for medical screening for incarceration. Patient has a history of type 2 diabetes on insulin. Patient states she does not have any complaints or concerns at this time. Patient denies fever, chills, chest pain, shortness of breath, or cough. Denies headache, neck stiff ness, change in vision, syncope, or near syncope. Denies nausea, vomiting, abdominal pain, diarrhea, constipation, or dysuria. Has not noted any blood in urine or stool. Patient has been eating and drinking appropriately. Review of systems: As per history of present illness and below otherwise all systems reviewed and negative. Past medical history: As per history of present illness and as reviewed below otherwise noncontributory. Surgical history: As per history of present illness and as reviewed below otherwise noncontributory. Social history: See social history for further information Family history: As per history of present illness and as reviewed below otherwise noncontributory. Physical exam: General: Patient is alert, oriented, and in no acute distress. Patient sitting comfortably on exam table. HEENT: Atraumatic, normocephalic, pupils equal and reactive bilaterally, negative for conjunctival pallor or scleral icterus, mucous membranes moist, TMs normal bilaterally, throat clear, neck supple, nontender, trachea midline. No drooling or trismus noted. No meningeal signs. No hot potato voice noted. Lungs: Clear to auscultation, breath sounds equal bilaterally, chest nontender. Heart: S1S2, regular rate and rhythm without overt murmur Abdomen: Soft, nondistended, nontender. Negative for masses or hepatosplenomegaly. Negative for costovertebral tenderness. Pelvis: Stable nontender. Genitourinary: Deferred. Rectal: Deferred. Skin: Intact, warm, dry. No lesions or rashes noted. Extremities: Atraumatic, negative for cords or calf pain. Neurovascular unremarkable. Neuro: Awake, alert, oriented. Cranial nerves II through XII unremarkable. Cerebellum unremarkable. Motor and sensory unremarkable throughout. Exam nonfocal. Notes: Discussed importance for follow-up with a primary care provider. Voices understanding and is agreeable to plan of care. Denies any further questions or concerns at this time. Diagnostics: Bedside glucose Therapeutics: None Prescription: Humalog Novalog Impression: Medical screening exam Type 2 diabetes, insulin dependent Plan: 1. Medically screened for incarceration. 2. Take medication as prescribed. Follow-up with a primary care provider as discussed. Return to the ED as needed and as discussed. Definitive disposition and diagnosis as appropriate pending reevaluation and review of above. - Related Data Allergies Allergy/AdvReac Type Severity Reaction Status Date / Time codeine Allergy Shortness Verified 09/28/18 23:22 of Breath Penicillins Allergy Anaphylactic Verified 09/28/18 23:22 Shock sulfamethoxazole Allergy Hives Verified 09/28/18 23:22 [From Bactrim] trimethoprim [From Bactrim] Allergy Hives Verified 09/28/18 23:22 Home Meds: Home Meds Insulin Aspart [NovoLOG] 30 units SQ DAILY 12/27/17 [History] Insulin Lispro [HumaLOG] 30 units SQ DAILY 12/27/17 [History] Past Medical History - Past Health History Medical/Surgical History: Denies Medical/Surgical History HEENT History: Reports: Other (See Below) Other HEENT History: missing teeth Cardiovascular History: Reports: Bacterial Endocarditis, Cardiomyopathy, Other ( See Below) Other Cardiovascular History: Mitral Valve Prolapse Respiratory History: Reports: None Gastrointestinal History: Reports: Cholelithiasis Other Genitourinary History: polycystic kidney disease SIDE PULLER History: Reports: Musculoskeletal History: Reports: Other (See Below) Other Musculoskeletal History: chronic hip pain Neurological History: Reports: Seizure Psychiatric History: Reports: Addiction, Anxiety Endocrine/Metabolic History: Reports: Diabetes, Type I Hematologic History: Reports: Other (See Below) Other Hematologic History: pt reports low white blood cell count Oncologic (Cancer) History: Reports: Breast Dermatologic History: Reports: Cellulitis, Chronic Cellulitis - Infectious Disease History Infectious Disease History: Reports: Chicken Pox Other Infectious Disease History: MSSA - Past Surgical History Head Surgeries/Procedures: Reports: None Female Surgical History: Reports: Ureteral Stent Oncologic Surgical History: Reports: Lumpectomy Other Oncologic Surgeries/Procedures: left breast lumpectomy Social & Family History - Family History Family Medical History: Noncontributory - Caffeine Use Caffeine Use: Reports: Coffee, Energy Drinks, Soda, Tea Caffeine Use Comment: 2-4 daily ED ROS GENERAL - Review of Systems Review Of Systems: ROS reveals no pertinent complaints other than HPI. ED EXAM, GENERAL - Physical Exam Exam: See Below (See dictation) Course - Orders/Labs/Meds Orders: Active Orders 24 hr Category Date Time Status Glucose [Blood Glucose Check, Bedside] [RC] ONETIME Care 12/19/18 23:24 Ordered Labs: Laboratory Tests 12/19/18 Range/Units 23:26 POC Glucose 119 H (60-110) mg/dL Departure - Departure Time of Disposition: 23:36 Disposition: Home, Self-Care 01 Clinical Impression: Encounter for medical screening examination Type 2 diabetes mellitus Qualifiers: Diabetes mellitus snf insulin use: with snf use Diabetes mellitus complication status: without complication Qualified Code(s): E11.9 - Type 2 diabetes mellitus without complications; Z79.4 - jail (current) use of insulin - Discharge Information Referrals: PCP,None [Primary Care Provider] - Additional Instructions: The following information is given to patients seen in the emergency department who are being discharged to home. This information is to outline your options for follow-up care. We provide all patients seen in our emergency department with a follow-up referral. The need for follow-up, as well as the timing and circumstances, are variable depending upon the specifics of your emergency department visit. If you don't have a primary care physician on staff, we will provide you with a referral. We always advise you to contact your personal physician following an emergency department visit to inform them of the circumstance of the visit and for follow-up with them and/or the need for any referrals to a consulting specialist. The emergency department will also refer you to a specialist when appropriate. This referral assures that you have the opportunity for follow-up care with a specialist. All of these measure are taken in an effort to provide you with optimal care, which includes your follow-up. Under all circumstances we always encourage you to contact your private physician who remains a resource for coordinating your care. When calling for follow-up care, please make the office aware that this follow-up is from your recent emergency room visit. If for any reason you are refused follow-up, please contact the [facility] Emergency Department at and asked to speak to the emergency department charge nurse. VALENTIN [facility] [address] [place] [address] [facility] [address] [place] [address] 1. Medically screened for incarceration. 2. Take medication as prescribed. Follow-up with a primary care provider as discussed. Return to the ED as needed and as discussed. - My Orders Last 24 Hours: My Active Orders 12/19/18 23:24 Glucose [Blood Glucose Check, Bedside] [] ONETIME - Assessment/Plan Last 24 Hours: My Active Orders 12/19/18 23:24 Glucose [Blood Glucose Check, Bedside] [RC] ONETIME
[2018-12-19 23:47] VITALS: BP 121/82; PULSE 102
== END 2018-12-19 23:45 | disposition home or self-care (01) ==
LOC: MW.ED 23:14
DX: Z02.89 Encounter for other administrative examinations (principal); E11.9 Type 2 diabetes mellitus without complications; Z88.0 Allergy status to penicillin; Z88.5 Allergy status to narcotic agent; Z88.1 Allergy status to other antibiotic agents; Z88.2 Allergy status to sulfonamides; Z79.4 Long term (current) use of insulin
CPT/HCPCS: 82962; 99283

== ENCOUNTER 2019-01-26 01:05 | Emergency (ER) | payer SELFPAY ==
--- NOTE | 2019-01-26 01:15 | EDM.PDOC ---
ED HPI GENERAL MEDICAL PROBLEM - General Chief Complaint: General Stated Complaint: MEDICAL CLEARANCE Time Seen by Provider: 01/26/19 01:14 - History of Present Illness INITIAL COMMENTS - FREE TEXT/NARRATIVE: HISTORY AND PHYSICAL: History of present illness: Patient 38-year-old female who presents in custody of law enforcement for medical clearance with no complaints Review of systems: As per history of present illness and below otherwise all systems reviewed and negative. Past medical history: As per history of present illness and as reviewed below otherwise noncontributory. Surgical history: As per history of present illness and as reviewed below otherwise noncontributory. Social history: No reported history of drug or alcohol abuse. Family history: As per history of present illness and as reviewed below otherwise noncontributory. Physical exam: HEENT: Atraumatic, normocephalic, pupils reactive, negative for conjunctival pallor or scleral icterus, mucous membranes moist, throat clear, neck supple, nontender, trachea midline. Lungs: Clear to auscultation, breath sounds equal bilaterally, chest nontender. Heart: S1S2, regular, negative for clicks, rubs, or JVD. Abdomen: Soft, nondistended, nontender. Negative for masses or hepatosplenomegaly. Negative for costovertebral tenderness. Pelvis: Stable nontender. Genitourinary: Deferred. Rectal: Deferred. Extremities: Atraumatic, negative for cords or calf pain. Neurovascular unremarkable. Neuro: Awake, alert, oriented. Cranial nerves II through XII unremarkable. Cerebellum unremarkable. Motor and sensory unremarkable throughout. Exam nonfocal. Diagnostics: None Therapeutics: None Impression: #1 medical clearance for incarceration Definitive disposition and diagnosis as appropriate pending reevaluation and review of above. no pain Pain Score (Numeric/FACES): 0 - Related Data Allergies Allergy/AdvReac Type Severity Reaction Status Date / Time codeine Allergy Shortness Verified 01/26/19 01:09 of Breath Penicillins Allergy Anaphylactic Verified 01/26/19 01:09 Shock Sulfa (Sulfonamide Allergy Hives Verified 01/26/19 01:09 Antibiotics) sulfamethoxazole Allergy Hives Verified 01/26/19 01:09 [From Bactrim] trimethoprim [From Bactrim] Allergy Hives Verified 01/26/19 01:09 Home Meds: Home Meds Insulin Aspart [NovoLOG] 30 units SQ DAILY 12/27/17 [History] Insulin Lispro [HumaLOG] 30 units SQ DAILY 12/27/17 [History] Past Medical History - Past Health History Medical/Surgical History: Denies Medical/Surgical History HEENT History: Reports: Other (See Below) Other HEENT History: missing teeth Cardiovascular History: Reports: Bacterial Endocarditis, Cardiomyopathy, Other ( See Below) Other Cardiovascular History: Mitral Valve Prolapse Respiratory History: Reports: None Gastrointestinal History: Reports: Cholelithiasis Other Genitourinary History: polycystic kidney disease BUSINESS INFO CONSULTANT History: Reports: Other BUSINESS INFO CONSULTANT History: Musculoskeletal History: Reports: Other (See Below) Other Musculoskeletal History: chronic hip pain Neurological History: Reports: Seizure Psychiatric History: Reports: Addiction, Anxiety Endocrine/Metabolic History: Reports: Diabetes, Type I Hematologic History: Reports: Other (See Below) Other Hematologic History: pt reports low white blood cell count Oncologic (Cancer) History: Reports: Breast Dermatologic History: Reports: Cellulitis, Chronic Cellulitis - Infectious Disease History Infectious Disease History: Reports: Chicken Pox Other Infectious Disease History: MSSA - Past Surgical History Head Surgeries/Procedures: Reports: None Female Surgical History: Reports: Ureteral Stent Oncologic Surgical History: Reports: Lumpectomy Other Oncologic Surgeries/Procedures: left breast lumpectomy Social & Family History - Family History Family Medical History: Noncontributory - Caffeine Use Caffeine Use: Reports: Coffee, Energy Drinks, Soda, Tea Caffeine Use Comment: 2-4 daily ED ROS GENERAL - Review of Systems Review Of Systems: Comprehensive ROS is negative, except as noted in HPI. ED EXAM, GENERAL - Physical Exam Exam: See Below (See dictation) Course - Vital Signs Last Recorded V/S: Last Vital Signs Temp 35.9 C 01/26/19 01:11 Pulse 101 H 01/26/19 01:11 Resp 16 01/26/19 01:11 BP 148/90 H 01/26/19 01:11 Pulse Ox 100 01/26/19 01:11 Departure - Departure Time of Disposition: 01:15 Disposition: Home, Self-Care 01 Condition: Good Clinical Impression: Medical clearance for incarceration - Discharge Information Referrals: PCP,None [Primary Care Provider] - Additional Instructions: The following information is given to patients seen in the emergency department who are being discharged to home. This information is to outline your options for follow-up care. We provide all patients seen in our emergency department with a follow-up referral. The need for follow-up, as well as the timing and circumstances, are variable depending upon the specifics of your emergency department visit. If you don't have a primary care physician on staff, we will provide you with a referral. We always advise you to contact your personal physician following an emergency department visit to inform them of the circumstance of the visit and for follow-up with them and/or the need for any referrals to a consulting specialist. The emergency department will also refer you to a specialist when appropriate. This referral assures that you have the opportunity for followup care with a specialist. All of these measure are taken in an effort to provide you with optimal care, which includes your followup. Under all circumstances we always encourage you to contact your private physician who remains a resource for coordinating your care. When calling for followup care, please make the office aware that this follow-up is from your recent emergency room visit. If for any reason you are refused follow-up, please contact the [facility] emergency department at and asked to speak to the emergency department charge nurse. Follow primary medical doctor as needed as discussed return as needed as discussed
[2019-01-26 01:33] VITALS: BP 148/90; PULSE 101
== END 2019-01-26 01:55 | disposition home or self-care (01) ==
LOC: MW.ED 01:05
DX: Z02.89 Encounter for other administrative examinations (principal); E10.9 Type 1 diabetes mellitus without complications; Z88.0 Allergy status to penicillin; Z88.5 Allergy status to narcotic agent; Z88.1 Allergy status to other antibiotic agents; Z88.2 Allergy status to sulfonamides
CPT/HCPCS: 99282

== ENCOUNTER 2019-03-18 19:51 | Emergency (ER) | payer SELFPAY ==
[2019-03-18 20:10] VITALS: BP 139/93; PULSE 101
--- NOTE | 2019-03-18 20:18 | EDM.PDOC ---
ED HPI GENERAL MEDICAL PROBLEM - General Chief Complaint: General Stated Complaint: MEDICAL CLEARANCE Time Seen by Provider: 03/18/19 20:14 Source of Information: Reports: Patient History Limitations: Reports: No Limitations - History of Present Illness INITIAL COMMENTS - FREE TEXT/NARRATIVE: HISTORY AND PHYSICAL: History of present illness: Patient is a 38-year-old female presents to the ED in police custody for medical clearance. Patient states that she thinks she has a urinary tract infection she has having painful urination and frequent urination. Denies fevers, chills, nausea, vomiting, abdominal pain, back pain, chest pain, shortness of breath. Review of systems: As per history of present illness and below otherwise all systems reviewed and negative. Past medical history: As per history of present illness and as reviewed below otherwise noncontributory. Surgical history: As per history of present illness and as reviewed below otherwise noncontributory. Social history: No reported history of drug or alcohol abuse. Family history: As per history of present illness and as reviewed below otherwise noncontributory. Physical exam: General: Patient sitting comfortably in no acute distress and nontoxic appearing HEENT: Atraumatic, normocephalic, pupils reactive, negative for conjunctival pallor or scleral icterus, mucous membranes moist, throat clear, neck supple, nontender, trachea midline. No meningeal signs. Lungs: Clear to auscultation, breath sounds equal bilaterally, chest nontender. Heart: S1S2, regular, negative for clicks, rubs, or overt murmur. Abdomen: Soft, nondistended, nontender. Negative for masses or hepatosplenomegaly. Negative for costovertebral tenderness. No rigidity, rebound , guarding. Pelvis: Stable nontender. Genitourinary: Deferred. Rectal: Deferred. Extremities: Atraumatic, negative for cords or calf pain. Neurovascular unremarkable. Neuro: Awake, alert, oriented. Cranial nerves II through XII unremarkable. Cerebellum unremarkable. Motor and sensory unremarkable throughout. Exam nonfocal. Notes: Diagnostics: UA Therapeutics: none Prescriptions: none Impression: Medical clearance Plan: Follow up with primary care provider Return to ED as needed as discussed Definitive disposition and diagnosis as appropriate pending reevaluation and review of above. - Related Data Allergies Allergy/AdvReac Type Severity Reaction Status Date / Time bee venom protein (honey bee) Allergy Other Verified 03/18/19 20:10 codeine Allergy Shortness Verified 03/18/19 20:10 of Breath iodine Allergy Other Verified 03/18/19 20:10 Penicillins Allergy Anaphylactic Verified 03/18/19 20:10 Shock shellfish derived Allergy Other Verified 03/18/19 20:10 Sulfa (Sulfonamide Allergy Hives Verified 03/18/19 20:10 Antibiotics) sulfamethoxazole Allergy Hives Verified 03/18/19 20:10 [From Bactrim] trimethoprim [From Bactrim] Allergy Hives Verified 03/18/19 20:10 Home Meds: Home Meds Insulin Aspart [NovoLOG] 30 units SQ DAILY 12/27/17 [History] Insulin Lispro [HumaLOG] 30 units SQ DAILY 12/27/17 [History] Past Medical History - Past Health History Medical/Surgical History: Denies Medical/Surgical History HEENT History: Reports: Other (See Below) Other HEENT History: missing teeth Cardiovascular History: Reports: Bacterial Endocarditis, Cardiomyopathy, [place], Other (See Below) Other Cardiovascular History: Mitral Valve Prolapse Respiratory History: Reports: None Gastrointestinal History: Reports: Cholelithiasis Other Genitourinary History: polycystic kidney disease PULMONOLOGIST History: Reports: Other PULMONOLOGIST History: Musculoskeletal History: Reports: Other (See Below) Other Musculoskeletal History: chronic hip pain Neurological History: Reports: Seizure Psychiatric History: Reports: Addiction, Anxiety Endocrine/Metabolic History: Reports: Diabetes, Type I Hematologic History: Reports: Other (See Below) Other Hematologic History: pt reports low white blood cell count Oncologic (Cancer) History: Reports: Breast Dermatologic History: Reports: Cellulitis, Chronic Cellulitis - Infectious Disease History Infectious Disease History: Reports: MRSA Other Infectious Disease History: MSSA - Past Surgical History Head Surgeries/Procedures: Reports: None Female Surgical History: Reports: Ureteral Stent Oncologic Surgical History: Reports: Lumpectomy Other Oncologic Surgeries/Procedures: left breast lumpectomy Social & Family History - Family History Family Medical History: Noncontributory - Tobacco Use Smoking Status *Q: Current Every Day Smoker Years of Tobacco use: 23 Packs/Tins Daily: 1 - Caffeine Use Caffeine Use: Reports: Coffee, Energy Drinks, Soda, Tea Caffeine Use Comment: 2-4 daily - Recreational Drug Use Recreational Drug Use: Yes Drug Use in Last 12 Months: Yes Recreational Drug Type: Reports: Marijuana/Hashish ED ROS GENERAL - Review of Systems Review Of Systems: Comprehensive ROS is negative, except as noted in HPI. ED EXAM, GENERAL - Physical Exam Exam: See Below (see dictation) Course - Vital Signs Last Recorded V/S: Last Vital Signs Temp 98.7 F 03/18/19 20:08 Pulse 101 H 03/18/19 20:08 Resp 16 03/18/19 20:08 BP 139/93 H 03/18/19 20:08 Pulse Ox 98 03/18/19 20:08 - Orders/Labs/Meds Labs: Laboratory Tests 03/18/19 Range/Units 20:15 Urine Color YELLOW Urine Appearance SLT CLOUDY Urine pH 6.5 (5.0-8.0) Ur Specific Burns 1.015 (1.001-1.035) Urine Protein NEGATIVE (NEGATIVE) mg/dL Urine Glucose (UA) NEGATIVE (NEGATIVE) mg/dL Urine Ketones NEGATIVE (NEGATIVE) mg/dL Urine Occult Blood NEGATIVE (NEGATIVE) Urine Nitrite NEGATIVE (NEGATIVE) Urine Bilirubin NEGATIVE (NEGATIVE) Urine Urobilinogen 0.2 (<2.0) EU/dL Ur Leukocyte Esterase NEGATIVE (NEGATIVE) Departure - Departure Time of Disposition: 20:56 Disposition: Eloped 07 Condition: Good Clinical Impression: Medical clearance for incarceration - Discharge Information Referrals: PCP,None [Primary Care Provider] - Forms: ED Department Discharge Additional Instructions: The following information is given to patients seen in the emergency department who are being discharged to home. This information is to outline your options for follow-up care. We provide all patients seen in our emergency department with a follow-up referral. The need for follow-up, as well as the timing and circumstances, are variable depending upon the specifics of your emergency department visit. If you don't have a primary care physician on staff, we will provide you with a referral. We always advise you to contact your personal physician following an emergency department visit to inform them of the circumstance of the visit and for follow-up with them and/or the need for any referrals to a consulting specialist. The emergency department will also refer you to a specialist when appropriate. This referral assures that you have the opportunity for follow-up care with a specialist. All of these measure are taken in an effort to provide you with optimal care, which includes your follow-up. Under all circumstances we always encourage you to contact your private physician who remains a resource for coordinating your care. When calling for follow-up care, please make the office aware that this follow-up is from your recent emergency room visit. If for any reason you are refused follow-up, please contact the [facility] Emergency Department at and asked to speak to the emergency department charge nurse. [facility] [address] [place] [id number] [facility] [address] [place] [id number] Follow-up with primary care provider Return to ED as needed as discussed Sepsis Event Note - Evaluation Sepsis Screening Result: No Definite Risk - Focused Exam Vital Signs: Vital Signs Temp Pulse Resp BP Pulse Ox 03/18/19 20:08 98.7 F 101 H 16 139/93 H 98 Date Exam was Performed: 03/18/19 Time Exam was Performed: 20:56
== END 2019-03-18 21:13 ==
LOC: MW.ED 19:51
DX: Z02.89 Encounter for other administrative examinations (principal); E10.9 Type 1 diabetes mellitus without complications; I25.2 Old myocardial infarction; F17.210 Nicotine dependence, cigarettes, uncomplicated; Z88.5 Allergy status to narcotic agent; Z88.0 Allergy status to penicillin; Z91.013 Allergy to seafood; Z88.2 Allergy status to sulfonamides; Z88.8 Allergy status to other drugs, medicaments and biological substances; Z79.4 Long term (current) use of insulin
CPT/HCPCS: 81003; 82962; 99282; 99283

== ENCOUNTER 2020-08-14 14:43 | Observation (INO) | payer SELFPAY ==
--- NOTE | 2020-08-14 14:49 | PCM.EKG ---
#1 Interpretation EKG Date: 08/14/20 Time: 14:42 Rhythm: Other (sinus tachy) Rate (Beats/Min): 125 ST-T: Normal
[2020-08-14] MEDS ORDERED: Sodium Chloride 0.9% 1,000 ML IV ONE (15:13)
[2020-08-14] MEDS ORDERED: Acetaminophen 500 MG Tab PO ONE (15:16)
[2020-08-14] MEDS: LORazepam 2 MG/ML SDV IVPUSH ONE ×2 (15:44→15:47)
[2020-08-14] MEDS ORDERED: diphenhydrAMINE 50 MG/ML SDV IVPUSH ONE (15:51)
[2020-08-14 16:49] LABS: BLOOD UREA NITROGEN,BUN 8 mg/dL (7.0-18.0); CARBON DIOXIDE,CO2 22.3 mmol/L (21.0-32.0); CHLORIDE,CL 99 mmol/L (98-107); GLUCOSE RANDOM 100 mg/dL (74-106); LIPASE 35 U/L (73-393); POTASSIUM,K 4.1 mmol/L (3.5-5.1); SODIUM,NA 133 mmol/L (136-145)
[2020-08-14 18:12] LABS: CORONAVIRUS COVID-19 NAA NEGATIVE (NEGATIVE); INFLUENZA A NAA NEGATIVE (NEGATIVE); INFLUENZA B NAA NEGATIVE (NEGATIVE)
--- NOTE | 2020-08-14 18:29 | CR ---
For Patients: As a result of the Century Cures Act, medical imaging exams and procedure reports are released immediately into your electronic medical record. You may view this report before your referring provider. If you have questions, please contact your health care provider. INDICATION: Chest pain. Shortness of breath. COMPARISON: Two view chest October 02, 2016. TECHNIQUE: AP upright portable chest. FINDINGS: The lungs are clear. The heart, mediastinum and pulmonary vessels are of normal size. There is no evidence of pleural disease. Normal included skeleton. No significant change other than technique when compared to the prior study. IMPRESSION: Negative AP portable upright chest x-ray. Dictated by Diego Lewis MD @ 08/14/2020 6:27:[address] Diego Lewis @ Aug 14 2020 6:27PM
[2020-08-14] MEDS ORDERED: Iopamidol 755 MG/ML 500 ML Multipack Bottle IVPUSH STA (18:41)
--- NOTE | 2020-08-14 19:42 | CT ---
For Patients: As a result of the 21st Century Cures Act, medical imaging exams and procedure reports are released immediately into your electronic medical record. You may view this report before your referring provider. If you have questions, please contact your health care provider. INDICATION: Fever, chest pain, shortness of breath, elevated D-dimer, abdominal pain, IV drug use TECHNIQUE: Contrast enhanced axial CT imaging through the chest, abdomen, and pelvis. Chest imaging was performed in the pulmonary angiographic phase. 100 mL Isovue 370 contrast agent was administered intravenously. Sagittal and coronal reconstructions are provided. COMPARISON: [facility]A chest 11/07/[address] abdomen pelvis with contrast 10/17/2015 FINDINGS: Chest: There is adequate opacification of the pulmonary arterial tree without evidence of thromboembolism. The main pulmonary artery is nondilated. The heart is non enlarged. There is no pericardial effusion. There is normal caliber of the thoracic aorta. There is no mediastinal lymphadenopathy. The lungs are clear. There is no pleural effusion or pneumothorax. The thoracic osseous structures are unremarkable. A few nonspecific borderline enlarged lymph nodes noted in the left axilla, unchanged since 2016. Abdomen/pelvis: There is no significant abnormality of the liver, gallbladder, spleen, pancreas, adrenal glands, and kidneys. The portal vein is patent. There is normal caliber of the abdominal aorta. There is no abdominal lymphadenopathy. The stomach and duodenum are unremarkable. There are no abnormally distended small bowel loops. The appendix is noninflamed. There is no colonic wall thickening or mesenteric edema. Prominent fecal material is noted in the ascending and transverse colon. Either on bilateral pelvic varices, more pronounced on the left. The left ovarian vein is enlarged measuring up to 9 mm in diameter. The left renal vein is patent. Note is made of moderate compression of the left renal vein at the aorta mesenteric window. The uterus is otherwise unremarkable. Follicular changes are noted in both ovaries. The urinary bladder is unremarkable. There is no significant pelvic free fluid or lymphadenopathy. There is a large degenerative Schmorl node involving the anterior superior endplate of L2 with moderate adjacent intervertebral disc height loss. Remainder of the osseous structures are unremarkable. IMPRESSION: 1. No evidence of pulmonary thromboembolism or other acute intrathoracic process. 2. Prominent fecal material in the ascending and transverse colon, suggesting constipation. 3. Bilateral pelvic varices and enlarged left ovarian vein. Findings may be associated with chronic pelvic/lower abdominal pain. 4. Moderate compression of the left renal vein at the aortomesenteric lung window, suggesting nutcracker morphology. This may be asymptomatic, or may be associated with intermittent left flank pain and hematuria. 5. Clinical correlation is recommended for the above findings. 6. No acute inflammatory process demonstrated in the abdomen pelvis. Please note that all CT scans at this facility use dose modulation, iterative reconstruction, and/or weight-based dosing when appropriate to reduce radiation dose to as low as reasonably achievable. Dictated by Elizabeth Warren MD @ 08/14/2020 7:41:[address] Elizabeth Warren @ Aug 14 2020 7:41PM
[2020-08-14] MEDS ORDERED: cefTRIAXone 1 GM in Premix Bag 1 BAG IV ONE (21:10)
--- NOTE | 2020-08-14 22:18 | EDM.PDOC ---
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 Patient statement "today I am going to ". Patient lay on the floor noting that "my chest hurts so bad and I cannot breathe ". Patient also notes of swelling of her legs but they are not worse than usual. While performing examination, she notes that "I have an ectopic "and states that she has been having abdominal pain and missed her menstrual cycle for 3 months. Significant other at bedside states that she has been having abdominal pain for a few days. Patient does states she is an IV drug user and used a few days ago and methamphetamine right now is her drug of choice. She states she did take 1 tab of Vicodin yesterday. Patient states several years ago, she used to use opioids but now is a methamphetamine user. Patient also notes that she has a fever due to the heater in her car that she took a nap and after her night time babysitter. Patient cough. Denies headache, neck stiff ness, change in vision, syncope, or near syncope. Denies nausea, vomiting, diarrhea, constipation, or dysuria. Has not noted any blood in urine or stool. Patient has been eating and drinking appropriately. Review of systems: As per history of present illness and below otherwise all systems reviewed and negative. Past medical history: As per history of present illness and as reviewed below otherwise noncontributory. Surgical history: As per history of present illness and as reviewed below otherwise noncontributory. Social history: See social history for further information Family history: As per history of present illness and as reviewed below otherwise noncontributory. Physical exam: General: Patient is alert, oriented, and in no acute distress. Patient was initially sitting comfortably on exam table, however in the middle of my exam, lays on the floor and make statements as noted above and appears agitated / uncomfortable. Patient noted to be febrile 100.9 with a heart rate of 137 and respiratory rate of 30, otherwise vitally stable on exam and reviewed by me. HEENT: Atraumatic, normocephalic, pupils equal and reactive bilaterally, negative for conjunctival pallor or scleral icterus, mucous membranes moist, TMs normal bilaterally, throat clear, neck supple, nontender, trachea midline. No drooling or trismus noted. No meningeal signs. No hot potato voice noted. Lungs: Clear to auscultation, breath sounds equal bilaterally, chest nontender. Heart: Tachycardic rate, S1S2, regular rate and rhythm without overt murmur Abdomen: Soft, nondistended, nontender. Negative for masses or hepatosplenomegaly. Negative for costovertebral tenderness. Pelvis: Stable nontender. Genitourinary: exam performed by PA student Keo Pitts observed and supervised directly by me. External genitalia grossly unremarkable. There is a small amount of white vaginal discharge in the vaginal vault. Negative cervical motion tenderness. No uterine tenderness. No adnexal pain or tenderness. Rectal: Deferred. Skin: Intact, warm, dry. No lesions or rashes noted. Extremities: 2+ edema noted to bilateral feet without erythema. Otherwise, atraumatic, negative for cords or calf pain. Neurovascular unremarkable. Neuro: Awake, alert, oriented. Cranial nerves II through XII unremarkable. Cerebellum unremarkable. Motor and sensory unremarkable throughout. Exam nonfocal. Notes: Dr. Romero directly involved in patient care. Patient is a 39-year-old female who presents to the ED today initially with difficulty asserting what her stated complaint is, however, appears that patient is having chest pain, shortness of breath and fevers that started this morning. Upon arrival to the ED, patient is noted to be tachycardic 140s and febrile on exam and is otherwise stable. Will perform cardiac evaluation, initiate fluid bolus with Tylenol, and reassess patient. After initial lab draw, patient was moved to an exam room where she was able to lay down and is much more comfortable on exam. Patient is no longer making statements and able to explain more of what brings her into the emergency room today and calm. Patient states that at this time, she is not having chest pain or shortness of breath but is having right lower quadrant abdominal pain has been having this for a few days. Patient states that she is also had a fever and does have a history of endocarditis with a mitral valve replacement. On reexamination of patient, she is noted to have moderate right lower quadrant tenderness without guarding and negative rebound. Upon reexamination of patient at this time, her heart rate is approximately 115, blood pressure 130s over 80s, respiratory rate 18, 97% on room air, and fever 103. See mild derangements are unremarkable. D-dimer is elevated at this time. Will obtain an and CT scan. Sodium is mildly low at 133, otherwise mild derangements of CMP unremarkable. Creatinine kinase is within normal limits. Troponin negative. BNP is within normal limits. Lipase is within normal limits. hCG is negative. Urinalysis does show positive nitrate, positive leukocyte Estrace, with 2-4 white blood cells, 0-1 red blood cells, and 3+ bacteria. Interpretation: Acute urinary tract infection. Urine drug screen is positive for opioids, methamphetamine, and marijuana. Ethyl alcohol is negative. Affirm is negative. Covid negative, influenza negative. X-ray shows no acute cardiopulmonary findings. Angio chest CT and abdominal pelvic CT with contrast shows no evidence for pulmonary thromboembolism or other acute intrathoracic process. Prominent fecal material in the ascending and transverse colon, suggesting constipation. Bilateral pelvic varices and enlarged left ovarian vein. Findings may be associated with chronic pelvic/lower abdominal pain. Moderate compression of the left renal vein at the aorto mesenteric lung window, suggesting nutcracker morphology. This may be asymptomatic or associated with intermittent left flank pain and hematuria. No acute inflammatory process demonstrated in the abdomen and pelvis. Upon reevaluation of patient, she remains febrile at 103, tachycardic 120s, otherwise vitally stable on exam. Patient does have a urinary tract infection on exam, currently receiving Rocephin, noted that she is penicillin allergic but states that she has had Rocephin safely for certain in the past and agreeable to receiving Rocephin. Although white blood cell count is within normal limits, will obtain a lactate and blood cultures and culture urine as patient remains tachycardic and febrile despite therapeutics today. Patient does have a history of infective endocarditis and is an IV drug user. I did call and speak to the hospitalist on-call, Dr. Warner, and thoroughly discussed patient's case. Will admit to observation telemetry. Voices understanding and is agreeable to plan of care. Denies any further questions or concerns at this time. Diagnostics: CBC, CMP, D-dimer, UA, hCG, troponin, BNP, creatinine kinase, alcohol, urine drug screen, affirm, gonorrhea and chlamydia, influenza, Covid, CTA chest, abdominal pelvic CT with contrast, chest x-ray, EKG Therapeutics: NS, Rocephin, Vancomycin (Has had cephalosporins in the past without allergic reaction according to patient), Toradol Impression: Fever Tachycardia SIRS r/o SEPSIS Urinary Tract Infection H/O endocarditis, s/p mitral valve repair H/O IV drug use Plan: Admit to observation on telemetry to Dr. Pierre Definitive disposition and diagnosis as appropriate pending reevaluation and review of above. Chest Pain Score (Numeric/FACES): 10 - Related Data Allergies Allergy/AdvReac Type Severity Reaction Status Date / Time bee venom protein (honey bee) Allergy Other Verified 08/15/20 02:48 codeine Allergy Shortness Verified 08/15/20 02:48 of Breath iodine Allergy Other Verified 08/15/20 02:48 Penicillins Allergy Anaphylactic Verified 08/15/20 02:48 Shock shellfish derived Allergy Other Verified 08/15/20 02:48 Sulfa (Sulfonamide Allergy Hives Verified 08/15/20 02:48 Antibiotics) sulfamethoxazole Allergy Hives Verified 08/15/20 02:48 [From Bactrim] trimethoprim [From Bactrim] Allergy Hives Verified 08/15/20 02:48 Home Meds: Home Meds Insulin Aspart [NovoLOG] 30 units SQ DAILY 12/27/17 [History] Insulin Lispro [HumaLOG] 30 units SQ DAILY 12/27/17 [History] Past Medical History - Past Health History Medical/Surgical History: Denies Medical/Surgical History HEENT History: Reports: Other (See Below) Other HEENT History: missing teeth Cardiovascular History: Reports: Bacterial Endocarditis, Cardiomyopathy, [place], Other (See Below) Other Cardiovascular History: Mitral Valve Prolapse Respiratory History: Reports: None Gastrointestinal History: Reports: Cholelithiasis Other Genitourinary History: polycystic kidney disease [employer] History: Reports: Other [employer] History: Musculoskeletal History: Reports: Other (See Below) Other Musculoskeletal History: chronic hip pain Neurological History: Reports: Seizure Psychiatric History: Reports: Addiction, Anxiety Endocrine/Metabolic History: Reports: Diabetes, Type I Hematologic History: Reports: Other (See Below) Other Hematologic History: pt reports low white blood cell count Oncologic (Cancer) History: Reports: Breast Dermatologic History: Reports: Cellulitis, Chronic Cellulitis - Infectious Disease History Infectious Disease History: Reports: MRSA Other Infectious Disease History: MSSA - Past Surgical History Head Surgeries/Procedures: Reports: None Female Surgical History: Reports: Ureteral Stent Oncologic Surgical History: Reports: Lumpectomy Other Oncologic Surgeries/Procedures: left breast lumpectomy Social & Family History - Family History Family Medical History: No Pertinent Family History - Tobacco Use Tobacco Use Status *Q: Current Every Day Tobacco User Years of Tobacco use: 20 Packs/Tins Daily: 1 Used Tobacco, but Quit: No - Caffeine Use Caffeine Use: Reports: None Caffeine Use Comment: 2-4 daily - Recreational Drug Use Recreational Drug Use: Yes Drug Use in Last 12 Months: Yes Recreational Drug Type: Reports: Methamphetamine ED ROS GENERAL - Review of Systems Review Of Systems: Comprehensive ROS is negative, except as noted in HPI. ED EXAM, GENERAL - Physical Exam Exam: See Below (see dictation) Course - Vital Signs Last Recorded V/S: Last Vital Signs Temp 98.1 F 08/15/20 08:00 Pulse 94 08/15/20 08:00 Resp 20 08/15/20 08:00 BP 106/56 L 08/15/20 08:36 Pulse Ox 94 L 08/15/20 08:00 - Orders/Labs/Meds Orders: Active Orders 24 hr Category Date Time Status CHLAMYDIA AND GONORRHEA BY TMA Stat Lab 08/14/20 21:05 Received CULTURE BLOOD [BC] Stat Lab 08/14/20 20:41 Received CULTURE URINE [MREF] Stat Lab 08/14/20 15:29 Received Blood Culture x2 Reflex Set [OM.PC] Stat Oth 08/14/20 20:23 Ordered Medication Orders Acetaminophen (Acetaminophen 325 Mg Tab) 650 mg PO Q4H PRN PRN Reason: Pain (Mild 1-3)/fever Last Admin: 08/15/20 04:46 Dose: 650 mg Documented by: TIM Albuterol/Ipratropium (Albuterol/Ipratropium 3.0-0.5 Mg/3 Ml Neb Soln) 3 ml NEB Q4HRRT PRN PRN Reason: Shortness Of Breath/wheezing Dextrose/Water (50% Dextrose In Water 50 Ml Syringe) 50 ml IVPUSH ASDIRECTED PRN PRN Reason: Hypoglycemia Docusate Sodium (Docusate Sodium 100 Mg Cap) 100 mg PO BID [facility] Last Admin: 08/15/20 09:35 Dose: 100 mg Documented by: DONITA Cosigned by: STEFFANIE Admin: 08/15/20 00:45 Dose: 100 mg Documented by: TIM Enoxaparin Sodium (Enoxaparin 40 Mg/0.4 Ml Syringe) 40 mg SUBCUT Q24H [facility] Last Admin: 08/15/20 00:45 Dose: 40 mg Documented by: TIM Glucagon (Glucagon,Human Recombinant 1 Mg Vial) 1 mg IM ASDIRECTED PRN PRN Reason: Hypoglycemia Lactated Ringer's (Ringers, Lactated) 1,000 mls @ 125 mls/hr IV ASDIRECTED [facility] Last Admin: 08/15/20 01:30 Dose: 125 mls/hr Documented by: TIM Pantoprazole Sodium 40 mg/ (Sodium Chloride) 10 mls @ 300 mls/hr IV DAILY [facility] Last Admin: 08/15/20 08:56 Dose: 300 mls/hr Documented by: BRIDGET Ceftriaxone Sodium 1 gm/ (Sodium Chloride) 50 mls @ 100 mls/hr IV Q24H VERONICA Vancomycin HCl 1.25 gm/ Sodium (Chloride) 250 mls @ 166.667 mls/hr IV Q12H VERONICA Magnesium Sulfate 4 gm/ Premix 100 mls @ 50 mls/hr IV ONETIME ONE Stop: 08/15/20 10:39 Last Admin: 08/15/20 09:03 Dose: 50 mls/hr Documented by: BRIDGET Insulin Aspart (Insulin Aspart 100 Units/Ml 3 Ml Pen) 0 unit SUBCUT TIDAC [facility]; Protocol Last Admin: 08/15/20 08:09 Dose: Not Given Documented by: TIM Ondansetron HCl (Ondansetron 4 Mg/2 Ml Sdv) 4 mg IVPUSH Q4H PRN PRN Reason: Nausea/Vomiting Sodium Phosphate (Phosphorus #1 250 Mg Tab) 250 mg PO QID [facility] Last Admin: 08/15/20 09:35 Dose: 250 mg Documented by: DONITA Cosigned by: STEFFANIE Vancomycin HCl (Pharmacy To Dose - Vancomycin) 1 dose .XX ASDIRECTED [facility] Labs: Laboratory Tests 08/14/20 08/14/20 08/14/20 Range/Units 15:19 15:19 15:29 WBC 8.61 (4.0-11.0) K/uL RBC 4.17 L (4.30-5.90) M/uL Hgb 12.3 (12.0-16.0) g/dL Hct 37.1 (36.0-46.0) % MCV 89.0 (80.0-98.0) fL MCH 29.5 (27.0-32.0) pg MCHC 33.2 (31.0-37.0) g/dL RDW Std Deviation 44.5 (28.0-62.0) fl RDW Coeff of Gibran 14 (11.0-15.0) % Plt Count 328 (150-400) K/uL MPV 9.40 (7.40-12.00) fL Neut % (Auto) 87.7 H (48.0-80.0) % Lymph % (Auto) 3.9 L (16.0-40.0) % [place] % (Auto) 8.0 (0.0-15.0) % Eos % (Auto) 0.3 (0.0-7.0) % Baso % (Auto) 0.1 (0.0-1.5) % Neut # (Auto) 7.5 H (1.4-5.7) K/uL Lymph # (Auto) 0.3 L (0.6-2.4) K/uL [place] # (Auto) 0.7 (0.0-0.8) K/uL Eos # (Auto) 0.0 (0.0-0.7) K/uL Baso # (Auto) 0.0 (0.0-0.1) K/uL Nucleated RBC % 0.0 /100WBC Nucleated RBCs # 0 K/uL D-Dimer, Quantitative (0.0-0.50) mg/L FEU Sodium (136-145) mmol/L Potassium (3.5-5.1) mmol/L Chloride (98-107) mmol/L Carbon Dioxide (21.0-32.0) mmol/L BUN (7.0-18.0) mg/dL Creatinine (0.6-1.0) mg/dL Est Cr Clr Drug Dosing mL/min Estimated GFR (MDRD) ml/min Glucose (74-106) mg/dL Lactic Acid (0.4-2.0) mmol/L Calcium (8.5-10.1) mg/dL Total Bilirubin (0.2-1.0) mg/dL AST (15-37) IU/L ALT (14-63) IU/L Alkaline Phosphatase (46-116) U/L Creatine Kinase (26-308) U/L Troponin I (0.000-0.056) ng/mL B-Natriuretic Peptide 7 (<100) PG/ML Total Protein (6.4-8.2) g/dL Albumin (3.4-5.0) g/dL Globulin (2.6-4.0) g/dL Albumin/Globulin Ratio (0.9-1.6) Lipase (73-393) U/L HCG, Qual (NEG) Urine Color YELLOW Urine Appearance CLEAR Urine pH 7.0 (5.0-8.0) Ur Specific [place] 1.020 (1.001-1.035) Urine Protein NEGATIVE (NEGATIVE) mg/dL Urine Glucose (UA) NEGATIVE (NEGATIVE) mg/dL Urine Ketones NEGATIVE (NEGATIVE) mg/dL Urine Occult Blood NEGATIVE (NEGATIVE) Urine Nitrite POSITIVE H (NEGATIVE) Urine Bilirubin NEGATIVE (NEGATIVE) Urine Urobilinogen 1.0 (<2.0) EU/dL Ur Leukocyte Esterase TRACE H (NEGATIVE) Urine RBC 0-1 (0-2/HPF) Urine WBC 2-4 (0-5/HPF) Ur Epithelial Cells OCCASIONAL (NONE-FEW) Urine Bacteria 3+ H (NEGATIVE) Urine Opiates Screen (NEGATIVE) Ur Oxycodone Screen (NEGATIVE) Urine Methadone Screen (NEGATIVE) Ur Barbiturates Screen (NEGATIVE) Ur Phencyclidine Scrn (NEGATIVE) Ur Amphetamine Screen (NEGATIVE) U Methamphetamines Scrn (NEGATIVE) U Benzodiazepines Scrn (NEGATIVE) U Cocaine Metab Screen (NEGATIVE) U Marijuana (THC) Screen (NEGATIVE) Ethyl Alcohol mg/dL Pia species DNA (NEGATIVE) Gardnerella DNA Probe (NEGATIVE) Influenza Type A RNA (NEGATIVE) Influenza Type B RNA (NEGATIVE) SARS-CoV-2 RNA (SAHARA) (NEGATIVE) Trichomonas DNA Probe (NEGATIVE) 08/14/20 08/14/2021 Range/Units 15:29 16:15 16:15 WBC (4.0-11.0) K/uL RBC (4.30-5.90) M/uL Hgb (12.0-16.0) g/dL Hct (36.0-46.0) % MCV (80.0-98.0) fL MCH (27.0-32.0) pg MCHC (31.0-37.0) g/dL RDW Std Deviation (28.0-62.0) fl RDW Coeff of Gibran (11.0-15.0) % Plt Count (150-400) K/uL MPV (7.40-12.00) fL Neut % (Auto) (48.0-80.0) % Lymph % (Auto) (16.0-40.0) % [place] % (Auto) (0.0-15.0) % Eos % (Auto) (0.0-7.0) % Baso % (Auto) (0.0-1.5) % Neut # (Auto) (1.4-5.7) K/uL Lymph # (Auto) (0.6-2.4) K/uL [place] # (Auto) (0.0-0.8) K/uL Eos # (Auto) (0.0-0.7) K/uL Baso # (Auto) (0.0-0.1) K/uL Nucleated RBC % /100WBC Nucleated RBCs # K/uL D-Dimer, Quantitative (0.0-0.50) mg/L FEU Sodium 133 L (136-145) mmol/L Potassium 4.1 (3.5-5.1) mmol/L Chloride 99 (98-107) mmol/L Carbon Dioxide 22.3 (21.0-32.0) mmol/L BUN 8 (7.0-18.0) mg/dL Creatinine 0.9 (0.6-1.0) mg/dL Est Cr Clr Drug Dosing 85.50 mL/min Estimated GFR (MDRD) > 60.0 ml/min Glucose 100 (74-106) mg/dL Lactic Acid (0.4-2.0) mmol/L Calcium 8.5 (8.5-10.1) mg/dL Total Bilirubin 0.3 (0.2-1.0) mg/dL AST 18 (15-37) IU/L ALT 26 (14-63) IU/L Alkaline Phosphatase 85 (46-116) U/L Creatine Kinase (26-308) U/L Troponin I < 0.050 (0.000-0.056) ng/mL B-Natriuretic Peptide (<100) PG/ML Total Protein 7.0 (6.4-8.2) g/dL Albumin 2.9 L (3.4-5.0) g/dL Globulin 4.1 H (2.6-4.0) g/dL Albumin/Globulin Ratio 0.7 L (0.9-1.6) Lipase 35 L (73-393) U/L HCG, Qual NEGATIVE (NEG) Urine Color Urine Appearance Urine pH (5.0-8.0) Ur Specific [place] (1.001-1.035) Urine Protein (NEGATIVE) mg/dL Urine Glucose (UA) (NEGATIVE) mg/dL Urine Ketones (NEGATIVE) mg/dL Urine Occult Blood (NEGATIVE) Urine Nitrite (NEGATIVE) Urine Bilirubin (NEGATIVE) Urine Urobilinogen (<2.0) EU/dL Ur Leukocyte Esterase (NEGATIVE) Urine RBC (0-2/HPF) Urine WBC (0-5/HPF) Ur Epithelial Cells (NONE-FEW) Urine Bacteria (NEGATIVE) Urine Opiates Screen POSITIVE (NEGATIVE) Ur Oxycodone Screen NEGATIVE (NEGATIVE) Urine Methadone Screen NEGATIVE (NEGATIVE) Ur Barbiturates Screen NEGATIVE (NEGATIVE) Ur Phencyclidine Scrn NEGATIVE (NEGATIVE) Ur Amphetamine Screen POSITIVE (NEGATIVE) U Methamphetamines Scrn POSITIVE (NEGATIVE) U Benzodiazepines Scrn NEGATIVE (NEGATIVE) U Cocaine Metab Screen NEGATIVE (NEGATIVE) U Marijuana (THC) Screen POSITIVE (NEGATIVE) Ethyl Alcohol < 3.0 mg/dL Pia species DNA (NEGATIVE) Gardnerella DNA Probe (NEGATIVE) Influenza Type A RNA (NEGATIVE) Influenza Type B RNA (NEGATIVE) SARS-CoV-2 RNA (SAHARA) (NEGATIVE) Trichomonas DNA Probe (NEGATIVE) 08/14/20 08/14/20 08/14/20 Range/Units 16:15 16:15 17:30 WBC (4.0-11.0) K/uL RBC (4.30-5.90) M/uL Hgb (12.0-16.0) g/dL Hct (36.0-46.0) % MCV (80.0-98.0) fL MCH (27.0-32.0) pg MCHC (31.0-37.0) g/dL RDW Std Deviation (28.0-62.0) fl RDW Coeff of Gibran (11.0-15.0) % Plt Count (150-400) K/uL MPV (7.40-12.00) fL Neut % (Auto) (48.0-80.0) % Lymph % (Auto) (16.0-40.0) % [place] % (Auto) (0.0-15.0) % Eos % (Auto) (0.0-7.0) % Baso % (Auto) (0.0-1.5) % Neut # (Auto) (1.4-5.7) K/uL Lymph # (Auto) (0.6-2.4) K/uL [place] # (Auto) (0.0-0.8) K/uL Eos # (Auto) (0.0-0.7) K/uL Baso # (Auto) (0.0-0.1) K/uL Nucleated RBC % /100WBC Nucleated RBCs # K/uL D-Dimer, Quantitative 1.13 H (0.0-0.50) mg/L FEU Sodium (136-145) mmol/L Potassium (3.5-5.1) mmol/L Chloride (98-107) mmol/L Carbon Dioxide (21.0-32.0) mmol/L BUN (7.0-18.0) mg/dL Creatinine (0.6-1.0) mg/dL Est Cr Clr Drug Dosing mL/min Estimated GFR (MDRD) ml/min Glucose (74-106) mg/dL Lactic Acid (0.4-2.0) mmol/L Calcium (8.5-10.1) mg/dL Total Bilirubin (0.2-1.0) mg/dL AST (15-37) IU/L ALT (14-63) IU/L Alkaline Phosphatase (46-116) U/L Creatine Kinase 77 (26-308) U/L Troponin I (0.000-0.056) ng/mL B-Natriuretic Peptide (<100) PG/ML Total Protein (6.4-8.2) g/dL Albumin (3.4-5.0) g/dL Globulin (2.6-4.0) g/dL Albumin/Globulin Ratio (0.9-1.6) Lipase (73-393) U/L HCG, Qual (NEG) Urine Color Urine Appearance Urine pH (5.0-8.0) Ur Specific [place] (1.001-1.035) Urine Protein (NEGATIVE) mg/dL Urine Glucose (UA) (NEGATIVE) mg/dL Urine Ketones (NEGATIVE) mg/dL Urine Occult Blood (NEGATIVE) Urine Nitrite (NEGATIVE) Urine Bilirubin (NEGATIVE) Urine Urobilinogen (<2.0) EU/dL Ur Leukocyte Esterase (NEGATIVE) Urine RBC (0-2/HPF) Urine WBC (0-5/HPF) Ur Epithelial Cells (NONE-FEW) Urine Bacteria (NEGATIVE) Urine Opiates Screen (NEGATIVE) Ur Oxycodone Screen (NEGATIVE) Urine Methadone Screen (NEGATIVE) Ur Barbiturates Screen (NEGATIVE) Ur Phencyclidine Scrn (NEGATIVE) Ur Amphetamine Screen (NEGATIVE) U Methamphetamines Scrn (NEGATIVE) U Benzodiazepines Scrn (NEGATIVE) U Cocaine Metab Screen (NEGATIVE) U Marijuana (THC) Screen (NEGATIVE) Ethyl Alcohol mg/dL Pia species DNA (NEGATIVE) Gardnerella DNA Probe (NEGATIVE) Influenza Type A RNA NEGATIVE (NEGATIVE) Influenza Type B RNA NEGATIVE (NEGATIVE) SARS-CoV-2 RNA (SAHARA) NEGATIVE (NEGATIVE) Trichomonas DNA Probe (NEGATIVE) 08/14/20 08/14/20 Range/Units 21:08 22:55 WBC (4.0-11.0) K/uL RBC (4.30-5.90) M/uL Hgb (12.0-16.0) g/dL Hct (36.0-46.0) % MCV (80.0-98.0) fL MCH (27.0-32.0) pg MCHC (31.0-37.0) g/dL RDW Std Deviation (28.0-62.0) fl RDW Coeff of Gibran (11.0-15.0) % Plt Count (150-400) K/uL MPV (7.40-12.00) fL Neut % (Auto) (48.0-80.0) % Lymph % (Auto) (16.0-40.0) % [place] % (Auto) (0.0-15.0) % Eos % (Auto) (0.0-7.0) % Baso % (Auto) (0.0-1.5) % Neut # (Auto) (1.4-5.7) K/uL Lymph # (Auto) (0.6-2.4) K/uL [place] # (Auto) (0.0-0.8) K/uL Eos # (Auto) (0.0-0.7) K/uL Baso # (Auto) (0.0-0.1) K/uL Nucleated RBC % /100WBC Nucleated RBCs # K/uL D-Dimer, Quantitative (0.0-0.50) mg/L FEU Sodium (136-145) mmol/L Potassium (3.5-5.1) mmol/L Chloride (98-107) mmol/L Carbon Dioxide (21.0-32.0) mmol/L BUN (7.0-18.0) mg/dL Creatinine (0.6-1.0) mg/dL Est Cr Clr Drug Dosing mL/min Estimated GFR (MDRD) ml/min Glucose (74-106) mg/dL Lactic Acid 1.4 (0.4-2.0) mmol/L Calcium (8.5-10.1) mg/dL Total Bilirubin (0.2-1.0) mg/dL AST (15-37) IU/L ALT (14-63) IU/L Alkaline Phosphatase (46-116) U/L Creatine Kinase (26-308) U/L Troponin I (0.000-0.056) ng/mL B-Natriuretic Peptide (<100) PG/ML Total Protein (6.4-8.2) g/dL Albumin (3.4-5.0) g/dL Globulin (2.6-4.0) g/dL Albumin/Globulin Ratio (0.9-1.6) Lipase (73-393) U/L HCG, Qual (NEG) Urine Color Urine Appearance Urine pH (5.0-8.0) Ur Specific [place] (1.001-1.035) Urine Protein (NEGATIVE) mg/dL Urine Glucose (UA) (NEGATIVE) mg/dL Urine Ketones (NEGATIVE) mg/dL Urine Occult Blood (NEGATIVE) Urine Nitrite (NEGATIVE) Urine Bilirubin (NEGATIVE) Urine Urobilinogen (<2.0) EU/dL Ur Leukocyte Esterase (NEGATIVE) Urine RBC (0-2/HPF) Urine WBC (0-5/HPF) Ur Epithelial Cells (NONE-FEW) Urine Bacteria (NEGATIVE) Urine Opiates Screen (NEGATIVE) Ur Oxycodone Screen (NEGATIVE) Urine Methadone Screen (NEGATIVE) Ur Barbiturates Screen (NEGATIVE) Ur Phencyclidine Scrn (NEGATIVE) Ur Amphetamine Screen (NEGATIVE) U Methamphetamines Scrn (NEGATIVE) U Benzodiazepines Scrn (NEGATIVE) U Cocaine Metab Screen (NEGATIVE) U Marijuana (THC) Screen (NEGATIVE) Ethyl Alcohol mg/dL Pia species DNA NEGATIVE (NEGATIVE) Gardnerella DNA Probe NEGATIVE (NEGATIVE) Influenza Type A RNA (NEGATIVE) Influenza Type B RNA (NEGATIVE) SARS-CoV-2 RNA ([place]HARA) (NEGATIVE) Trichomonas DNA Probe NEGATIVE (NEGATIVE) Meds: Medications Generic Name Dose Route Start Last Admin Trade Name Freq PRN Reason Stop Dose Admin Acetaminophen 650 mg 08/14/20 23:56 08/15/20 04:46 Acetaminophen 325 Mg Tab PO 650 mg Q4H PRN Administration Pain (Mild 1-3)/fever Albuterol/Ipratropium 3 ml 08/14/20 23:56 Albuterol/Ipratropium 3.0-0.5 Mg/3 Ml Neb Soln NEB Q4HRRT PRN Shortness Of Breath/wheezing Dextrose/Water 50 ml 08/15/20 00:17 50% Dextrose In Water 50 Ml Syringe IVPUSH ASDIRECTED PRN Hypoglycemia Docusate Sodium 100 mg 08/14/20 23:45 08/15/20 09:35 Docusate Sodium 100 Mg Cap PO 100 mg BID VERONICA Administration Enoxaparin Sodium 40 mg 08/14/20 23:45 08/15/20 00:45 Enoxaparin 40 Mg/0.4 Ml Syringe SUBCUT 40 mg Q24H VERONICA Administration Glucagon 1 mg 08/15/20 00:17 Glucagon,Human Recombinant 1 Mg Vial IM ASDIRECTED PRN Hypoglycemia Lactated Ringer's 1,000 mls @ 125 mls/hr 08/14/20 23:45 08/15/20 01:30 Ringers, Lactated IV 125 mls/hr ASDIRECTED VERONICA Administration Pantoprazole Sodium 40 mg/ 10 mls @ 300 mls/hr 08/15/20 09:00 08/15/20 08:56 Sodium Chloride IV 300 mls/hr DAILY VERONICA Administration Ceftriaxone Sodium 1 gm/ 50 mls @ 100 mls/hr 08/16/20 09:00 Sodium Chloride IV Q24H VERONICA Vancomycin HCl 1.25 gm/ Sodium 250 mls @ 166.667 mls/hr 08/15/20 14:00 Chloride IV Q12H [facility] Magnesium Sulfate 4 gm/ Premix 100 mls @ 50 mls/hr 08/15/20 08:40 08/15/20 09:03 IV 08/15/20 10:39 50 mls/hr ONETIME ONE Administration Insulin Aspart 0 unit 08/15/20 07:30 08/15/20 08:09 Insulin Aspart 100 Units/Ml 3 Ml Pen SUBCUT Not Given TIDAC [facility] Protocol Ondansetron HCl 4 mg 08/14/20 23:56 Ondansetron 4 Mg/2 Ml Sdv IVPUSH Q4H PRN Nausea/Vomiting Sodium Phosphate 250 mg 08/15/20 08:40 08/15/20 09:35 Phosphorus #1 250 Mg Tab PO 250 mg QID VERONICA Administration Vancomycin HCl 1 dose 08/14/20 23:45 Pharmacy To Dose - Vancomycin .XX ASDIRECTED [facility] Discontinued Medications Generic Name Dose Route Start Last Admin Trade Name Freq PRN Reason Stop Dose Admin Acetaminophen 1,000 mg 08/14/20 15:16 08/14/20 15:41 Acetaminophen 500 Mg Tab PO 08/14/20 15:17 1,000 mg ONETIME ONE Administration Diphenhydramine HCl 25 mg 08/14/20 15:51 08/14/20 15:59 Diphenhydramine 50 Mg/Ml Sdv IVPUSH 08/14/20 15:52 Not Given ONETIME ONE Sodium Chloride 1,000 mls @ 999 mls/hr 08/14/20 15:13 08/14/20 15:42 Normal Saline IV 08/14/20 16:13 999 mls/hr BOLUS ONE Administration Ceftriaxone Sodium/Dextrose 1 50 mls @ 100 mls/hr 08/14/20 21:10 08/14/20 21:16 gm/ Premix IV 08/14/20 21:39 100 mls/hr ONETIME ONE Administration Vancomycin HCl 1 gm/ Sodium 250 mls @ 166 mls/hr 08/14/20 22:41 08/14/20 23:14 Chloride IV 08/15/20 00:11 166 mls/hr ONETIME ONE Administration Sodium Chloride 1,000 mls @ 999 mls/hr 08/14/20 23:04 08/14/20 23:14 Normal Saline IV 08/15/20 00:04 999 mls/hr NOW STA Administration Piperacillin Sod/Tazobactam 50 mls @ 100 mls/hr 08/15/20 00:15 Sod 3.375 gm/ Sodium Chloride IV Q8H VERONICA Vancomycin HCl 1.25 gm/ Sodium 250 mls @ 166.667 mls/hr 08/15/20 01:00 08/15/20 01:55 Chloride IV 08/15/20 02:29 166.667 mls/hr ONETIME ONE Administration Iopamidol 100 ml 08/14/20 18:41 08/14/20 18:41 Iopamidol 755 Mg/Ml 500 Ml Multipack Bottle IVPUSH 08/14/20 18:42 100 ml ONETIME STA Administration Ketorolac Tromethamine 30 mg 08/14/20 22:40 08/14/20 23:15 Ketorolac 30 Mg/Ml Sdv IVPUSH 08/14/20 22:41 30 mg ONETIME ONE Administration Ketorolac Tromethamine 15 mg 08/15/20 04:30 08/15/20 04:45 Ketorolac 30 Mg/Ml Sdv IVPUSH 08/15/20 04:31 15 mg ONETIME ONE Administration Lorazepam 1 mg 08/14/20 15:39 08/14/20 15:47 Lorazepam 2 Mg/Ml Sdv IVPUSH 08/14/20 15:40 Not Given ONETIME ONE Departure - Departure Time of Disposition: 22:56 Disposition: Refer to Observation Clinical Impression: SIRS (systemic inflammatory response syndrome), Tachycardia Urinary tract infection Qualifiers: Urinary tract infection type: acute cystitis Hematuria presence: without hematuria Qualified Code(s): N30.00 - Acute cystitis without hematuria Constipation Qualifiers: Constipation type: unspecified constipation type Qualified Code(s): K59.00 - Constipation, unspecified Fever Qualifiers: Fever type: unspecified Qualified Code(s): R50.9 - Fever, unspecified - Discharge Information Sepsis Event Note (ED) - Evaluation Sepsis Screening Result: No Definite Risk - Focused Exam Vital Signs: Vital Signs Temp Pulse Resp BP Pulse Ox 08/14/20 22:35 103 F H 119 H 20 109/56 L 95 - My Orders Last 24 Hours: My Active Orders 08/14/20 15:29 CULTURE URINE [MREF] Stat 08/14/20 20:23 Blood Culture x2 Reflex Set [OM.PC] Stat 08/14/20 20:41 CULTURE BLOOD [BC] Stat 08/14/20 21:05 CHLAMYDIA AND GONORRHEA BY TMA Stat - Assessment/Plan Last 24 Hours: My Active Orders 08/14/20 15:29 CULTURE URINE [MREF] Stat 08/14/20 20:23 Blood Culture x2 Reflex Set [OM.PC] Stat 08/14/20 20:41 CULTURE BLOOD [BC] Stat 08/14/20 21:05 CHLAMYDIA AND GONORRHEA BY TMA Stat
[2020-08-14] MEDS ORDERED: Ketorolac 30 MG/ML SDV IVPUSH ONE (22:40)
[2020-08-14] MEDS ORDERED: Sodium Chloride 0.9% 1,000 ML IV STA (23:04)
[2020-08-14] MEDS ORDERED: Enoxaparin 40 MG/0.4 ML Syringe SUBCUT SCH (23:45)
[2020-08-14] MEDS ORDERED: Lactated Ringers 1,000 ML IV SCH (23:45)
[2020-08-14] MEDS ORDERED: Albuterol/Ipratropium 3.0-0.5 MG/3 ML Neb Soln NEB PRN (23:56)
[2020-08-14] MEDS ORDERED: Acetaminophen 325 MG Tab PO PRN (23:56)
[2020-08-14] MEDS ORDERED: Ondansetron 4 MG/2 ML SDV IVPUSH PRN (23:56)
[2020-08-15] MEDS ORDERED: Piperacillin/Tazobactam 3.375 GM in Sodium Chloride 0.9% 50 ML IV SCH (00:15)
[2020-08-15] MEDS ORDERED: Glucagon,Human Recombinant 1 MG Vial IM PRN (00:17)
[2020-08-15] MEDS ORDERED: 50% Dextrose in Water 50 ML Syringe IVPUSH PRN (00:17)
[2020-08-15] MEDS: Docusate Sodium 100 MG Cap PO SCH ×2 (00:45→09:35)
--- NOTE | 2020-08-15 03:40 | PCM.EKG ---
#2 Interpretation EKG Interpretation Comments: EKG: As interpreted by ER physician: Heather: Nonspecific ST-T wave abnormalities Normal axis No evidence of ST elevation MS Sinus tachycardia 110
[2020-08-15] MEDS ORDERED: Ketorolac 30 MG/ML SDV IVPUSH ONE (04:30)
[2020-08-15 07:27] LABS: BLOOD UREA NITROGEN,BUN 7 mg/dL (7.0-18.0); CHLORIDE,CL 103 mmol/L (98-107); GLUCOSE RANDOM 123 mg/dL (74-106); POTASSIUM,K 3.6 mmol/L (3.5-5.1); SODIUM,NA 135 mmol/L (136-145)
[2020-08-15] MEDS ORDERED: Insulin Aspart 100 Units/ML 3 ML Pen SUBCUT SCH (07:30)
--- NOTE | 2020-08-15 08:14 | PCM.HP.2 ---
<Carleen Spicer M - Last Filed: 08/15/20 16:07> H&P History of Present Illness - General Date of Service: 08/15/20 Admit Problem/Dx: Admission Diagnosis/Problem Admission Diagnosis/Problem SIRS without acute organ dysfunction due to infectious process Source of Information: Patient History Limitations: Reports: No Limitations - History of Present Illness Initial Comments - Free Text/Narative: This 39-year-old female with past medical history of substance abuse, type 1 diabetes, infective endocarditis status post mitral valve replacement presented to the ER with complaints of fevers chills and right lower quadrant abdominal pain. She also at times reported chest pain and shortness of breath. This morning patient arousable but unwilling to stay awake and discuss admission with provider. Patient does talk minimally stating that she used IV drugs approximately 3 to 5 days ago. She is using methamphetamines currently. She has a history of endocarditis with mitral valve replacement at that time, 2017 she was using opioids IV. She reports she does not follow with PCP she receives her insulin through visits to the ER. She is unsure of recent A1c. Currently she denies any chest pain shortness of breath abdominal pain dysuria or diarrhea. She denies any flank pain she is wanting to just sleep at this time. In the ER no leukocytosis noted WBC 8000. Hemoglobin 12.3 hematocrit 37.1 platelets 328,000. D-dimer elevated at 1.13 sodium 133 potassium 4.1 BUN/creatinine 8 and 0.9 respectively. Lactic acid 1.4 troponin negative lipase 35 hCG negative. Urine positive for nitrates leukocyte esterase pyuria 2-4 and +3 bacteria. Urine tox screen positive for opioids amphetamines methamphetamines and marijuana. Alcohol level negative Covid swab negative influenza negative. Vaginal swab negative for Pia Gardnerella and trichomonas. GC urine pending. Blood culture and urine cultures pending. Due to elevated D-dimer CT angio was obtained this revealed no pulmonary thromboembolism or other acute intrathoracic process. Abdominal CT also obtained which showed prominent fecal material in the ascending and transverse colon likely suggesting constipation. Bilateral pelvic varices and large left ovarian vein noted. Moderate compression of left renal vein at the aorto mesenteric lung window. Chest x-ray reveals negative findings for any acute cardiopulmonary process. EKG obtained which was sinus tachycardia ST-T wave normal no signs of ischemia. Repeat EKG obtained continues to show sinus tachycardia 110 no evidence of any ST or T wave changes. In the ER patient noted to be tachycardic febrile and tachypneic. Blood pressure is 177/81 oxygen 98% on room air. Patient was treated with vancomycin and Rocephin along with Toradol for pain and Tylenol. She was given 2 L IV fluid bolus. After IV fluids bolus patient heart rate did improve and blood pressure remained stable. Chest Pain Score (Numeric/FACES): 0 - Related Data Allergies/Adverse Reactions: Allergies Allergy/AdvReac Type Severity Reaction Status Date / Time bee venom protein (honey bee) Allergy Other Verified 08/15/20 02:48 codeine Allergy Shortness Verified 08/15/20 02:48 of Breath iodine Allergy Other Verified 08/15/20 02:48 Penicillins Allergy Anaphylactic Verified 08/15/20 02:48 Shock shellfish derived Allergy Other Verified 08/15/20 02:48 Sulfa (Sulfonamide Allergy Hives Verified 08/15/20 02:48 Antibiotics) sulfamethoxazole Allergy Hives Verified 08/15/20 02:48 [From Bactrim] trimethoprim [From Bactrim] Allergy Hives Verified 08/15/20 02:48 Home Medications: Home Meds Insulin Aspart [NovoLOG] 30 units SQ DAILY 12/27/17 [History] Insulin Lispro [HumaLOG] 30 units SQ DAILY 12/27/17 [History] Cefdinir [Omnicef] 300 mg PO BID #20 cap 08/15/20 [Rx] Linezolid [Zyvox] 600 mg PO Q12H #20 tab 08/15/20 [Rx] Past Medical History - Past Health History Medical/Surgical History: Denies Medical/Surgical History HEENT History: Reports: Other (See Below) Other HEENT History: missing teeth Cardiovascular History: Reports: Bacterial Endocarditis, Cardiomyopathy, [place], Other (See Below) Other Cardiovascular History: Mitral Valve Prolapse Respiratory History: Reports: None Gastrointestinal History: Reports: Cholelithiasis Other Genitourinary History: polycystic kidney disease GAS DISPATCHER History: Reports: Other OB/BYN History: Musculoskeletal History: Reports: Other (See Below) Other Musculoskeletal History: chronic hip pain Neurological History: Reports: Seizure Psychiatric History: Reports: Addiction, Anxiety Endocrine/Metabolic History: Reports: Diabetes, Type I Hematologic History: Reports: Other (See Below) Other Hematologic History: pt reports low white blood cell count Oncologic (Cancer) History: Reports: Breast Dermatologic History: Reports: Cellulitis, Chronic Cellulitis - Infectious Disease History Infectious Disease History: Reports: MRSA Other Infectious Disease History: MSSA - Past Surgical History Head Surgeries/Procedures: Reports: None Female Surgical History: Reports: Ureteral Stent Oncologic Surgical History: Reports: Lumpectomy Other Oncologic Surgeries/Procedures: left breast lumpectomy Social & Family History - Family History Family Medical History: No Pertinent Family History - Tobacco Use Tobacco Use Status *Q: Current Every Day Tobacco User Years of Tobacco use: 20 Packs/Tins Daily: 1 Used Tobacco, but Quit: No - Caffeine Use Caffeine Use: Reports: None Caffeine Use Comment: 2-4 daily - Recreational Drug Use Recreational Drug Use: Yes Drug Use in Last 12 Months: Yes Recreational Drug Type: Reports: Methamphetamine H&P Review of Systems - Review of Systems: Review Of Systems: See Below General: Reports: Fever, Chills, Malaise Pulmonary: Reports: No Symptoms. Denies: Shortness of Breath Cardiovascular: Reports: No Symptoms. Denies: Chest Pain Gastrointestinal: Reports: No Symptoms. Denies: Abdominal Pain, Black Stool, Bloody Stool, Diarrhea, Nausea, Vomiting Genitourinary: Reports: No Symptoms. Denies: Dysuria Musculoskeletal: Reports: No Symptoms Skin: Reports: No Symptoms Psychiatric: Reports: No Symptoms Neurological: Reports: No Symptoms Hematologic/Lymphatic: Reports: No Symptoms Immunologic: Reports: No Symptoms Exam - Exam Exam: See Below - Vital Signs Vital Signs: Last Vital Signs Temp 99.1 F 08/15/20 04:00 Pulse 96 08/15/20 04:00 Resp 19 08/15/20 04:00 BP 106/55 L 08/15/20 04:00 Pulse Ox 95 08/15/20 04:00 Weight: 90.322 kg - Exam General: Alert, Oriented HEENT: Conjunctiva Clear, Mucosa Moist & [employer], Posterior Pharynx Clear Neck: Supple Lungs: Clear to Auscultation, Normal Respiratory Effort Cardiovascular: Regular Rate, Regular Rhythm GI/Abdominal Exam: Normal Bowel Sounds, Soft, Non-Tender Back Exam: No: CVA Tenderness (L), CVA Tenderness (R) Extremities: Normal Inspection, Normal Range of Motion, Non-Tender, No Pedal Edema Neuro Extensive - Mental Status: Alert, Oriented x3 Neuro Extensive - Motor, Sensory, Reflexes: CN II-XII Intact Psychiatric: Alert, Normal Affect, Normal Mood - Patient Data Lab Results Last 24 hrs: Laboratory Results - last 24 hr 08/14/20 08/14/20 08/14/20 Range/Units 15:19 15:19 15:29 WBC 8.61 (4.0-11.0) K/uL RBC 4.17 L (4.30-5.90) M/uL Hgb 12.3 (12.0-16.0) g/dL Hct 37.1 (36.0-46.0) % MCV 89.0 (80.0-98.0) fL MCH 29.5 (27.0-32.0) pg MCHC 33.2 (31.0-37.0) g/dL RDW Std Deviation 44.5 (28.0-62.0) fl RDW Coeff of Gibran 14 (11.0-15.0) % Plt Count 328 (150-400) K/uL MPV 9.40 (7.40-12.00) fL Neut % (Auto) 87.7 H (48.0-80.0) % Lymph % (Auto) 3.9 L (16.0-40.0) % Davison % (Auto) 8.0 (0.0-15.0) % Eos % (Auto) 0.3 (0.0-7.0) % Baso % (Auto) 0.1 (0.0-1.5) % Neut # (Auto) 7.5 H (1.4-5.7) K/uL Lymph # (Auto) 0.3 L (0.6-2.4) K/uL Davison # (Auto) 0.7 (0.0-0.8) K/uL Eos # (Auto) 0.0 (0.0-0.7) K/uL Baso # (Auto) 0.0 (0.0-0.1) K/uL Nucleated RBC % 0.0 /100WBC Nucleated RBCs # 0 K/uL D-Dimer, Quantitative (0.0-0.50) mg/L FEU Sodium (136-145) mmol/L Potassium (3.5-5.1) mmol/L Chloride (98-107) mmol/L Carbon Dioxide (21.0-32.0) mmol/L BUN (7.0-18.0) mg/dL Creatinine (0.6-1.0) mg/dL Est Cr Clr Drug Dosing mL/min Estimated GFR (MDRD) ml/min Glucose (74-106) mg/dL POC Glucose (70-99) mg/dL Lactic Acid (0.4-2.0) mmol/L Calcium (8.5-10.1) mg/dL Phosphorus (2.6-4.7) mg/dL Magnesium (1.8-2.4) mg/dL Total Bilirubin (0.2-1.0) mg/dL AST (15-37) IU/L ALT (14-63) IU/L Alkaline Phosphatase (46-116) U/L Creatine Kinase (26-308) U/L Troponin I (0.000-0.056) ng/mL B-Natriuretic Peptide 7 (<100) PG/ML Total Protein (6.4-8.2) g/dL Albumin (3.4-5.0) g/dL Globulin (2.6-4.0) g/dL Albumin/Globulin Ratio (0.9-1.6) Lipase (73-393) U/L HCG, Qual (NEG) Urine Color YELLOW Urine Appearance CLEAR Urine pH 7.0 (5.0-8.0) Ur Specific [place] 1.020 (1.001-1.035) Urine Protein NEGATIVE (NEGATIVE) mg/dL Urine Glucose (UA) NEGATIVE (NEGATIVE) mg/dL Urine Ketones NEGATIVE (NEGATIVE) mg/dL Urine Occult Blood NEGATIVE (NEGATIVE) Urine Nitrite POSITIVE H (NEGATIVE) Urine Bilirubin NEGATIVE (NEGATIVE) Urine Urobilinogen 1.0 (<2.0) EU/dL Ur Leukocyte Esterase TRACE H (NEGATIVE) Urine RBC 0-1 (0-2/HPF) Urine WBC 2-4 (0-5/HPF) Ur Epithelial Cells OCCASIONAL (NONE-FEW) Urine Bacteria 3+ H (NEGATIVE) Urine Opiates Screen (NEGATIVE) Ur Oxycodone Screen (NEGATIVE) Urine Methadone Screen (NEGATIVE) Ur Barbiturates Screen (NEGATIVE) Ur Phencyclidine Scrn (NEGATIVE) Ur Amphetamine Screen (NEGATIVE) U Methamphetamines Scrn (NEGATIVE) U Benzodiazepines Scrn (NEGATIVE) U Cocaine Metab Screen (NEGATIVE) U Marijuana (THC) Screen (NEGATIVE) Ethyl Alcohol mg/dL Pia species DNA (NEGATIVE) Gardnerella DNA Probe (NEGATIVE) Influenza Type A RNA (NEGATIVE) Influenza Type B RNA (NEGATIVE) SARS-CoV-2 RNA (SAHARA) (NEGATIVE) Trichomonas DNA Probe (NEGATIVE) 08/14/20 08/14/20 08/14/20 Range/Units 15:29 16:15 16:15 WBC (4.0-11.0) K/uL RBC (4.30-5.90) M/uL Hgb (12.0-16.0) g/dL Hct (36.0-46.0) % MCV (80.0-98.0) fL MCH (27.0-32.0) pg MCHC (31.0-37.0) g/dL RDW Std Deviation (28.0-62.0) fl RDW Coeff of Gibran (11.0-15.0) % Plt Count (150-400) K/uL MPV (7.40-12.00) fL Neut % (Auto) (48.0-80.0) % Lymph % (Auto) (16.0-40.0) % Davison % (Auto) (0.0-15.0) % Eos % (Auto) (0.0-7.0) % Baso % (Auto) (0.0-1.5) % Neut # (Auto) (1.4-5.7) K/uL Lymph # (Auto) (0.6-2.4) K/uL Davison # (Auto) (0.0-0.8) K/uL Eos # (Auto) (0.0-0.7) K/uL Baso # (Auto) (0.0-0.1) K/uL Nucleated RBC % /100WBC Nucleated RBCs # K/uL D-Dimer, Quantitative (0.0-0.50) mg/L FEU Sodium 133 L (136-145) mmol/L Potassium 4.1 (3.5-5.1) mmol/L Chloride 99 (98-107) mmol/L Carbon Dioxide 22.3 (21.0-32.0) mmol/L BUN 8 (7.0-18.0) mg/dL Creatinine 0.9 (0.6-1.0) mg/dL Est Cr Clr Drug Dosing 85.50 mL/min Estimated GFR (MDRD) > 60.0 ml/min Glucose 100 (74-106) mg/dL POC Glucose (70-99) mg/dL Lactic Acid (0.4-2.0) mmol/L Calcium 8.5 (8.5-10.1) mg/dL Phosphorus (2.6-4.7) mg/dL Magnesium (1.8-2.4) mg/dL Total Bilirubin 0.3 (0.2-1.0) mg/dL AST 18 (15-37) IU/L ALT 26 (14-63) IU/L Alkaline Phosphatase 85 (46-116) U/L Creatine Kinase (26-308) U/L Troponin I < 0.050 (0.000-0.056) ng/mL B-Natriuretic Peptide (<100) PG/ML Total Protein 7.0 (6.4-8.2) g/dL Albumin 2.9 L (3.4-5.0) g/dL Globulin 4.1 H (2.6-4.0) g/dL Albumin/Globulin Ratio 0.7 L (0.9-1.6) Lipase 35 L (73-393) U/L HCG, Qual NEGATIVE (NEG) Urine Color Urine Appearance Urine pH (5.0-8.0) Ur Specific [place] (1.001-1.035) Urine Protein (NEGATIVE) mg/dL Urine Glucose (UA) (NEGATIVE) mg/dL Urine Ketones (NEGATIVE) mg/dL Urine Occult Blood (NEGATIVE) Urine Nitrite (NEGATIVE) Urine Bilirubin (NEGATIVE) Urine Urobilinogen (<2.0) EU/dL Ur Leukocyte Esterase (NEGATIVE) Urine RBC (0-2/HPF) Urine WBC (0-5/HPF) Ur Epithelial Cells (NONE-FEW) Urine Bacteria (NEGATIVE) Urine Opiates Screen POSITIVE (NEGATIVE) Ur Oxycodone Screen NEGATIVE (NEGATIVE) Urine Methadone Screen NEGATIVE (NEGATIVE) Ur Barbiturates Screen NEGATIVE (NEGATIVE) Ur Phencyclidine Scrn NEGATIVE (NEGATIVE) Ur Amphetamine Screen POSITIVE (NEGATIVE) U Methamphetamines Scrn POSITIVE (NEGATIVE) U Benzodiazepines Scrn NEGATIVE (NEGATIVE) U Cocaine Metab Screen NEGATIVE (NEGATIVE) U Marijuana (THC) Screen POSITIVE (NEGATIVE) Ethyl Alcohol < 3.0 mg/dL Pia species DNA (NEGATIVE) Gardnerella DNA Probe (NEGATIVE) Influenza Type A RNA (NEGATIVE) Influenza Type B RNA (NEGATIVE) SARS-CoV-2 RNA (SAHARA) (NEGATIVE) Trichomonas DNA Probe (NEGATIVE) 08/14/20 08/14/20 08/14/20 Range/Units 16:15 16:15 17:30 WBC (4.0-11.0) K/uL RBC (4.30-5.90) M/uL Hgb (12.0-16.0) g/dL Hct (36.0-46.0) % MCV (80.0-98.0) fL MCH (27.0-32.0) pg MCHC (31.0-37.0) g/dL RDW Std Deviation (28.0-62.0) fl RDW Coeff of Gibran (11.0-15.0) % Plt Count (150-400) K/uL MPV (7.40-12.00) fL Neut % (Auto) (48.0-80.0) % Lymph % (Auto) (16.0-40.0) % Davison % (Auto) (0.0-15.0) % Eos % (Auto) (0.0-7.0) % Baso % (Auto) (0.0-1.5) % Neut # (Auto) (1.4-5.7) K/uL Lymph # (Auto) (0.6-2.4) K/uL Davison # (Auto) (0.0-0.8) K/uL Eos # (Auto) (0.0-0.7) K/uL Baso # (Auto) (0.0-0.1) K/uL Nucleated RBC % /100WBC Nucleated RBCs # K/uL D-Dimer, Quantitative 1.13 H (0.0-0.50) mg/L FEU Sodium (136-145) mmol/L Potassium (3.5-5.1) mmol/L Chloride (98-107) mmol/L Carbon Dioxide (21.0-32.0) mmol/L BUN (7.0-18.0) mg/dL Creatinine (0.6-1.0) mg/dL Est Cr Clr Drug Dosing mL/min Estimated GFR (MDRD) ml/min Glucose (74-106) mg/dL POC Glucose (70-99) mg/dL Lactic Acid (0.4-2.0) mmol/L Calcium (8.5-10.1) mg/dL Phosphorus (2.6-4.7) mg/dL Magnesium (1.8-2.4) mg/dL Total Bilirubin (0.2-1.0) mg/dL AST (15-37) IU/L ALT (14-63) IU/L Alkaline Phosphatase (46-116) U/L Creatine Kinase 77 (26-308) U/L Troponin I (0.000-0.056) ng/mL B-Natriuretic Peptide (<100) PG/ML Total Protein (6.4-8.2) g/dL Albumin (3.4-5.0) g/dL Globulin (2.6-4.0) g/dL Albumin/Globulin Ratio (0.9-1.6) Lipase (73-393) U/L HCG, Qual (NEG) Urine Color Urine Appearance Urine pH (5.0-8.0) Ur Specific [place] (1.001-1.035) Urine Protein (NEGATIVE) mg/dL Urine Glucose (UA) (NEGATIVE) mg/dL Urine Ketones (NEGATIVE) mg/dL Urine Occult Blood (NEGATIVE) Urine Nitrite (NEGATIVE) Urine Bilirubin (NEGATIVE) Urine Urobilinogen (<2.0) EU/dL Ur Leukocyte Esterase (NEGATIVE) Urine RBC (0-2/HPF) Urine WBC (0-5/HPF) Ur Epithelial Cells (NONE-FEW) Urine Bacteria (NEGATIVE) Urine Opiates Screen (NEGATIVE) Ur Oxycodone Screen (NEGATIVE) Urine Methadone Screen (NEGATIVE) Ur Barbiturates Screen (NEGATIVE) Ur Phencyclidine Scrn (NEGATIVE) Ur Amphetamine Screen (NEGATIVE) U Methamphetamines Scrn (NEGATIVE) U Benzodiazepines Scrn (NEGATIVE) U Cocaine Metab Screen (NEGATIVE) U Marijuana (THC) Screen (NEGATIVE) Ethyl Alcohol mg/dL Pia species DNA (NEGATIVE) Gardnerella DNA Probe (NEGATIVE) Influenza Type A RNA NEGATIVE (NEGATIVE) Influenza Type B RNA NEGATIVE (NEGATIVE) SARS-CoV-2 RNA (SAHARA) NEGATIVE (NEGATIVE) Trichomonas DNA Probe (NEGATIVE) 08/14/20 08/14/20 08/15/20 Range/Units 21:08 22:55 06:36 WBC (4.0-11.0) K/uL RBC (4.30-5.90) M/uL Hgb (12.0-16.0) g/dL Hct (36.0-46.0) % MCV (80.0-98.0) fL MCH (27.0-32.0) pg MCHC (31.0-37.0) g/dL RDW Std Deviation (28.0-62.0) fl RDW Coeff of Gibran (11.0-15.0) % Plt Count (150-400) K/uL MPV (7.40-12.00) fL Neut % (Auto) (48.0-80.0) % Lymph % (Auto) (16.0-40.0) % [place] % (Auto) (0.0-15.0) % Eos % (Auto) (0.0-7.0) % Baso % (Auto) (0.0-1.5) % Neut # (Auto) (1.4-5.7) K/uL Lymph # (Auto) (0.6-2.4) K/uL Davison # (Auto) (0.0-0.8) K/uL Eos # (Auto) (0.0-0.7) K/uL Baso # (Auto) (0.0-0.1) K/uL Nucleated RBC % /100WBC Nucleated RBCs # K/uL D-Dimer, Quantitative (0.0-0.50) mg/L FEU Sodium (136-145) mmol/L Potassium (3.5-5.1) mmol/L Chloride (98-107) mmol/L Carbon Dioxide (21.0-32.0) mmol/L BUN (7.0-18.0) mg/dL Creatinine (0.6-1.0) mg/dL Est Cr Clr Drug Dosing mL/min Estimated GFR (MDRD) ml/min Glucose (74-106) mg/dL POC Glucose 108 H (70-99) mg/dL Lactic Acid 1.4 (0.4-2.0) mmol/L Calcium (8.5-10.1) mg/dL Phosphorus (2.6-4.7) mg/dL Magnesium (1.8-2.4) mg/dL Total Bilirubin (0.2-1.0) mg/dL AST (15-37) IU/L ALT (14-63) IU/L Alkaline Phosphatase (46-116) U/L Creatine Kinase (26-308) U/L Troponin I (0.000-0.056) ng/mL B-Natriuretic Peptide (<100) PG/ML Total Protein (6.4-8.2) g/dL Albumin (3.4-5.0) g/dL Globulin (2.6-4.0) g/dL Albumin/Globulin Ratio (0.9-1.6) Lipase (73-393) U/L HCG, Qual (NEG) Urine Color Urine Appearance Urine pH (5.0-8.0) Ur Specific [place] (1.001-1.035) Urine Protein (NEGATIVE) mg/dL Urine Glucose (UA) (NEGATIVE) mg/dL Urine Ketones (NEGATIVE) mg/dL Urine Occult Blood (NEGATIVE) Urine Nitrite (NEGATIVE) Urine Bilirubin (NEGATIVE) Urine Urobilinogen (<2.0) EU/dL Ur Leukocyte Esterase (NEGATIVE) Urine RBC (0-2/HPF) Urine WBC (0-5/HPF) Ur Epithelial Cells (NONE-FEW) Urine Bacteria (NEGATIVE) Urine Opiates Screen (NEGATIVE) Ur Oxycodone Screen (NEGATIVE) Urine Methadone Screen (NEGATIVE) Ur Barbiturates Screen (NEGATIVE) Ur Phencyclidine Scrn (NEGATIVE) Ur Amphetamine Screen (NEGATIVE) U Methamphetamines Scrn (NEGATIVE) U Benzodiazepines Scrn (NEGATIVE) U Cocaine Metab Screen (NEGATIVE) U Marijuana (THC) Screen (NEGATIVE) Ethyl Alcohol mg/dL Pia species DNA NEGATIVE (NEGATIVE) Gardnerella DNA Probe NEGATIVE (NEGATIVE) Influenza Type A RNA (NEGATIVE) Influenza Type B RNA (NEGATIVE) SARS-CoV-2 RNA (SAHARA) (NEGATIVE) Trichomonas DNA Probe NEGATIVE (NEGATIVE) 08/15/20 08/15/20 Range/Units 06:42 06:42 WBC 5.94 (4.0-11.0) K/uL RBC 3.90 L (4.30-5.90) M/uL Hgb 11.3 L (12.0-16.0) g/dL Hct 34.4 L (36.0-46.0) % MCV 88.2 (80.0-98.0) fL MCH 29.0 (27.0-32.0) pg MCHC 32.8 (31.0-37.0) g/dL RDW Std Deviation 44.4 (28.0-62.0) fl RDW Coeff of Gibran 14 (11.0-15.0) % Plt Count 284 (150-400) K/uL MPV 9.60 (7.40-12.00) fL Neut % (Auto) 76.3 (48.0-80.0) % Lymph % (Auto) 5.9 L (16.0-40.0) % [place] % (Auto) 17.3 H (0.0-15.0) % Eos % (Auto) 0.3 (0.0-7.0) % Baso % (Auto) 0.2 (0.0-1.5) % Neut # (Auto) 4.5 (1.4-5.7) K/uL Lymph # (Auto) 0.4 L (0.6-2.4) K/uL [place] # (Auto) 1.0 H (0.0-0.8) K/uL Eos # (Auto) 0.0 (0.0-0.7) K/uL Baso # (Auto) 0.0 (0.0-0.1) K/uL Nucleated RBC % 0.0 /100WBC Nucleated RBCs # 0 K/uL D-Dimer, Quantitative (0.0-0.50) mg/L FEU Sodium 135 L (136-145) mmol/L Potassium 3.6 (3.5-5.1) mmol/L Chloride 103 (98-107) mmol/L Carbon Dioxide 21.0 (21.0-32.0) mmol/L BUN 7 (7.0-18.0) mg/dL Creatinine 0.9 (0.6-1.0) mg/dL Est Cr Clr Drug Dosing 88.57 mL/min Estimated GFR (MDRD) > 60.0 ml/min Glucose 123 H (74-106) mg/dL POC Glucose (70-99) mg/dL Lactic Acid (0.4-2.0) mmol/L Calcium 8.2 L (8.5-10.1) mg/dL Phosphorus 2.3 L (2.6-4.7) mg/dL Magnesium 1.4 L (1.8-2.4) mg/dL Total Bilirubin (0.2-1.0) mg/dL AST (15-37) IU/L ALT (14-63) IU/L Alkaline Phosphatase (46-116) U/L Creatine Kinase (26-308) U/L Troponin I (0.000-0.056) ng/mL B-Natriuretic Peptide (<100) PG/ML Total Protein (6.4-8.2) g/dL Albumin (3.4-5.0) g/dL Globulin (2.6-4.0) g/dL Albumin/Globulin Ratio (0.9-1.6) Lipase (73-393) U/L HCG, Qual (NEG) Urine Color Urine Appearance Urine pH (5.0-8.0) Ur Specific [place] (1.001-1.035) Urine Protein (NEGATIVE) mg/dL Urine Glucose (UA) (NEGATIVE) mg/dL Urine Ketones (NEGATIVE) mg/dL Urine Occult Blood (NEGATIVE) Urine Nitrite (NEGATIVE) Urine Bilirubin (NEGATIVE) Urine Urobilinogen (<2.0) EU/dL Ur Leukocyte Esterase (NEGATIVE) Urine RBC (0-2/HPF) Urine WBC (0-5/HPF) Ur Epithelial Cells (NONE-FEW) Urine Bacteria (NEGATIVE) Urine Opiates Screen (NEGATIVE) Ur Oxycodone Screen (NEGATIVE) Urine Methadone Screen (NEGATIVE) Ur Barbiturates Screen (NEGATIVE) Ur Phencyclidine Scrn (NEGATIVE) Ur Amphetamine Screen (NEGATIVE) U Methamphetamines Scrn (NEGATIVE) U Benzodiazepines Scrn (NEGATIVE) U Cocaine Metab Screen (NEGATIVE) U Marijuana (THC) Screen (NEGATIVE) Ethyl Alcohol mg/dL Pia species DNA (NEGATIVE) Gardnerella DNA Probe (NEGATIVE) Influenza Type A RNA (NEGATIVE) Influenza Type B RNA (NEGATIVE) SARS-CoV-2 RNA (SAHARA) (NEGATIVE) Trichomonas DNA Probe (NEGATIVE) Result Diagrams: 08/15/20 06:42 08/15/20 06:42 Sepsis Event Note - Evaluation Sepsis Screening Result: No Definite Risk Current Stage of Sepsis: Sepsis Possible Source of Sepsis: Genitourinary - Focused Exam Sepsis Event Note Statement: Focused Sepsis Exam Completed Vital Signs: Vital Signs Temp Pulse Resp BP Pulse Ox Pulse Ox 08/15/20 04:00 99.1 F 96 19 106/55 L 95 08/15/20 00:07 98.5 F 100 19 106/55 L 95 08/15/20 00:00 95 08/14/20 23:16 102.2 F H 111 H 18 122/73 96 08/14/20 22:35 103 F H 119 H 20 109/56 L 95 - Problem List (1) Sepsis SNOMED Code(s): 73525022 ICD Code: A41.9 - SEPSIS, UNSPECIFIED ORGANISM Status: Acute Qualifiers: Sepsis type: sepsis due to unspecified organism Sepsis acute organ dysfunction status: without acute organ dysfunction Qualified Code(s): A41.9 - Sepsis, unspecified organism (2) UTI (urinary tract infection) SNOMED Code(s): 07602039 ICD Code: N39.0 - URINARY TRACT INFECTION, SITE NOT SPECIFIED Status: Acute Qualifiers: Urinary tract infection type: acute cystitis Hematuria presence: without hematuria Qualified Code(s): N30.00 - Acute cystitis without hematuria (3) Type 1 diabetes SNOMED Code(s): 00019501 ICD Code: E10.9 - TYPE 1 DIABETES MELLITUS WITHOUT COMPLICATIONS Status: Chronic Qualifiers: Diabetes mellitus complication status: without complication Qualified Code(s): E10.9 - Type 1 diabetes mellitus without complications (4) Noncompliance SNOMED Code(s): 1069084 ICD Code: Z91.19 - PATIENT'S NONCOMPLIANCE [facility] Status: Chronic (5) Mitral valve replaced SNOMED Code(s): 3436095312228, 5649548310572 ICD Code: Z95.2 - PRESENCE OF PROSTHETIC HEART VALVE Status: Chronic (6) Fever SNOMED Code(s): 208885598 ICD Code: R50.9 - FEVER, UNSPECIFIED Status: Acute Qualifiers: Fever type: unspecified Qualified Code(s): R50.9 - Fever, unspecified (7) Endocarditis SNOMED Code(s): 30043130 ICD Code: I38 - ENDOCARDITIS, VALVE UNSPECIFIED Status: Chronic Priority: High Qualifiers: Endocarditis type: infective Infective endocarditis organism: bacterial (8) IV drug abuse SNOMED Code(s): 093302599, 232222488 ICD Code: F19.10 - OTHER PSYCHOACTIVE SUBSTANCE ABUSE, UNCOMPLICATED Status: Chronic (9) Methamphetamine abuse SNOMED Code(s): 901499380 ICD Code: F15.10 - OTHER STIMULANT ABUSE, UNCOMPLICATED Status: Chronic (10) Substance abuse SNOMED Code(s): 93844203 ICD Code: F19.10 - OTHER PSYCHOACTIVE SUBSTANCE ABUSE, UNCOMPLICATED Status: Chronic Problem List Initiated/Reviewed/Updated: Yes Orders Last 24hrs: Active Orders 24 hr Category Date Time Status Admission Status [Patient Status] [ADT] Stat ADT 08/14/20 23:00 Active Ambulate [RC] ASDIRECTED Care 08/14/20 23:56 Active Antiembolic Devices [RC] PER UNIT ROUTINE Care 08/14/20 23:57 Active Blood Glucose Check, Bedside [RC] TIDAC Care 08/15/20 07:00 Active Oxygen Therapy [RC] PRN Care 08/14/20 23:56 Active RT Aerosol Therapy [RC] ASDIRECTED Care 08/14/20 23:58 Active Telemetry Monitoring [Cardiac Monitoring] [RC] Q8H Care 08/14/20 23:00 Active VTE/DVT Education [RC] PER UNIT ROUTINE Care 08/14/20 23:56 Active Vital Signs [RC] Q4H Care 08/14/20 23:56 Active ADA Diabetic [[place] [employer] Diet] [DIET Diet 08/15/20 Breakfast Active ] CHLAMYDIA AND GONORRHEA BY TMA Stat Lab 08/14/20 21:05 Received CULTURE BLOOD [BC] Stat Lab 08/14/20 20:41 Received VANCOMYCIN TROUGH [CHEM] Timed Lab 08/17/20 01:00 Ordered Acetaminophen [TylenoL] Med 08/14/20 23:56 Active 650 mg PO Q4H PRN Albuterol/Ipratropium [DuoNeb 3.0-0.5 MG/3 ML] Med 08/14/20 23:56 Active 3 ml NEB Q4HRRT PRN Dextrose 50% in Water Med 08/15/20 00:17 Active 50 ml IVPUSH ASDIRECTED PRN Docusate Sodium [Colace] Med 08/14/20 23:45 Active 100 mg PO BID Enoxaparin [Lovenox] Med 08/14/20 23:45 Active 40 mg SUBCUT Q24H Glucagon,Human Recombinant [GlucaGen] Med 08/15/20 00:17 Active 1 mg IM ASDIRECTED PRN Insulin Aspart [NovoLOG] Med 08/15/20 07:30 Active See Protocol SUBCUT TIDAC Lactated Ringers [Ringers, Lactated] 1,000 ml Med 08/14/20 23:45 Active IV ASDIRECTED Ondansetron [Zofran] Med 08/14/20 23:56 Active 4 mg IVPUSH Q4H PRN Pantoprazole [ProTONIX IV] 40 mg Med 08/15/20 09:00 Active Sodium Chloride 0.9% [Normal Saline] 10 ml IV DAILY Pharmacy to Dose - Vancomycin Med 08/14/20 23:45 Active 1 dose .XX ASDIRECTED Vancomycin 1.25 gm Med 08/15/20 14:00 Active Sodium Chloride 0.9% [Normal Saline (AdvBag)] 250 ml IV Q12H cefTRIAXone [Rocephin] 1 gm Med 08/16/20 09:00 Active Sodium Chloride 0.9% [Normal Saline] 50 ml IV Q24H Blood Culture x2 Reflex Set [OM.PC] Stat Oth 08/14/20 20:23 Ordered Ice Pack [Ice Therapy] [OM.PC] Routine Oth 08/15/20 00:05 Ordered Sequential Compression Device [OM.PC] Per Unit Routine Oth 08/14/20 23:57 Ordered Medication Orders Acetaminophen (Acetaminophen 325 Mg Tab) 650 mg PO Q4H PRN PRN Reason: Pain (Mild 1-3)/fever Last Admin: 08/15/20 04:46 Dose: 650 mg Documented by: TIM Albuterol/Ipratropium (Albuterol/Ipratropium 3.0-0.5 Mg/3 Ml Neb Soln) 3 ml NEB Q4HRRT PRN PRN Reason: Shortness Of Breath/wheezing Dextrose/Water (50% Dextrose In Water 50 Ml Syringe) 50 ml IVPUSH ASDIRECTED PRN PRN Reason: Hypoglycemia Docusate Sodium (Docusate Sodium 100 Mg Cap) 100 mg PO BID [facility] Last Admin: 08/15/20 00:45 Dose: 100 mg Documented by: TIM Enoxaparin Sodium (Enoxaparin 40 Mg/0.4 Ml Syringe) 40 mg SUBCUT Q24H VERONICA Last Admin: 08/15/20 00:45 Dose: 40 mg Documented by: TIM Glucagon (Glucagon,Human Recombinant 1 Mg Vial) 1 mg IM ASDIRECTED PRN PRN Reason: Hypoglycemia Lactated Ringer's (Ringers, Lactated) 1,000 mls @ 125 mls/hr IV ASDIRECTED [facility] Last Admin: 08/15/20 01:30 Dose: 125 mls/hr Documented by: TIM Pantoprazole Sodium 40 mg/ (Sodium Chloride) 10 mls @ 300 mls/hr IV DAILY [facility] Ceftriaxone Sodium 1 gm/ (Sodium Chloride) 50 mls @ 100 mls/hr IV Q24H [facility] Vancomycin HCl 1.25 gm/ Sodium (Chloride) 250 mls @ 166.667 mls/hr IV Q12H [facility] Insulin Aspart (Insulin Aspart 100 Units/Ml 3 Ml Pen) 0 unit SUBCUT TIDAC [facility]; Protocol Last Admin: 08/15/20 08:09 Dose: Not Given Documented by: TIM Ondansetron HCl (Ondansetron 4 Mg/2 Ml Sdv) 4 mg IVPUSH Q4H PRN PRN Reason: Nausea/Vomiting Vancomycin HCl (Pharmacy To Dose - Vancomycin) 1 dose .XX ASDIRECTED [facility] Assessment/Plan Comment:: This 39-year-old female admitted with sepsis secondary to UTI. 1. Sepsis/UTI -Patient treated with Rocephin and vancomycin in the ER. -Blood cultures and urine culture pending -Lactic acid normal -Blood pressures have been stable. Intermittent hypotension patient has been on her side lying rechecks have been above 100 systolic. -Continue LR 125 -Continue Rocephin and vancomycin - With history of endocarditis and recent IV drug use and valve replacement will obtain echo to monitor heart function 2. Type 1 diabetes -Monitor blood sugars 3 times daily AC -Continue insulin with meals and long-acting insulin -We will check A1c as patient is likely noncompliant due to not following with primary care 3. Polysubstance abuse/IV drug use VTE prophylaxis: Lovenox CODE STATUS: Full code Dispo: 2 to 3 days pending improvement Discharge plan: Patient was seen on initial rounds by myself. I was notified by [employer] that patient had declined echo and wanted to be discharged home. Patient signed out AMA after given information by nursing staff, but did not want to wait to be seen by attending physician or myself again. Sent Linezolid and Cefdinir to outpatient pharmacy given patients prior history of infective endocarditis. Patient was encouraged to stay but continued to decline. <Merrill Warner - Last Filed: 08/18/20 16:26> H&P History of Present Illness - General Admit Problem/Dx: Admission Diagnosis/Problem Admission Diagnosis/Problem SIRS without acute organ dysfunction due to infectious process Exam - Vital Signs Vital Signs: Last Vital Signs Temp 36.6 C 08/15/20 12:00 Pulse 94 08/15/20 08:00 Resp 20 08/15/20 08:00 BP 85/50 L 08/15/20 12:00 Pulse Ox 97 08/15/20 12:00 - Patient Data Result Diagrams: 08/15/20 06:42 08/15/20 06:42 Zay Results Last 24 hrs: Microbiology 08/14/20 15:29 Urine Culture - Final Urine Enterobacter Cloacae Complex 08/14/20 20:41 Aerobic Blood Culture - Preliminary Blood - Venous NO GROWTH AFTER 3 DAYS Anaerobic Blood Culture - Preliminary NO GROWTH AFTER 3 DAYS Assessment/Plan Comment:: Patient was not personally seen by me as patient did not want to wait to be assessed, patient wanted to leave AGAINST MEDICAL ADVICE. Patient was counseled to wait and let the hospitalist team round but patient was adamant on leaving. Given patient's history of infective endocarditis and current fevers patient was discharged on oral antibiotics and recommended follow-up with her primary care. Patient was instructed to return to the ED in case her symptoms get worse. Patient understood the risks of leaving AGAINST MEDICAL ADVICE and was competent to make that decision.
[2020-08-15 08:21] VITALS: PULSE 94
[2020-08-15] MEDS ORDERED: Magnesium Sulfate/Water 4 GM in Premix Bag 1 BAG IV ONE (08:40)
[2020-08-15] MEDS ORDERED: Pantoprazole 40 MG in Sodium Chloride 0.9% 10 ML IV SCH (09:00)
[2020-08-15] MEDS: Phosphorus #1 250 MG Tab PO SCH ×2 (09:35→11:37)
[2020-08-15 12:37] VITALS: BP 85/50
[2020-08-16] MEDS ORDERED: cefTRIAXone 1 GM in Sodium Chloride 0.9% 50 ML IV SCH (09:00)
[2020-08-16 13:06] LABS: C.TRACHOMATIS BY TMA Negative (Negative); N.GONORRHOEAE BY TMA Negative (Negative)
== END 2020-08-15 12:00 | disposition left against medical advice (07) ==
LOC: MW.ED 14:43 → MW.MS 23:00
PROVIDERS: ADMIT Student in an Organized Health Care Education/Training Program; ATTEND Student in an Organized Health Care Education/Training Program
DX: A41.9 Sepsis, unspecified organism (principal); N30.00 Acute cystitis without hematuria; E10.9 Type 1 diabetes mellitus without complications; I38 Endocarditis, valve unspecified; D72.829 Elevated white blood cell count, unspecified; R79.1 Abnormal coagulation profile; F19.10 Other psychoactive substance abuse, uncomplicated; F15.10 Other stimulant abuse, uncomplicated; I25.2 Old myocardial infarction; F17.210 Nicotine dependence, cigarettes, uncomplicated; K59.00 Constipation, unspecified; Z91.19 Patient's noncompliance with other medical treatment and regimen; Z20.822 Contact with and (suspected) exposure to COVID-19; Z88.0 Allergy status to penicillin; Z88.6 Allergy status to analgesic agent; Z88.2 Allergy status to sulfonamides; Z91.030 Bee allergy status; Z91.013 Allergy to seafood; Z95.2 Presence of prosthetic heart valve
CPT/HCPCS: 0240U; 36415; 71045; 71275; 74177; 80048; 80053; 80305; 80307; 81001; 82550; 82947; 83605; 83690; 83735; 83880; 84100; 84484; 84703; 85025; 85379; 87040; 87086; 87480; 87491; 87510; 87591; 87660; 93005; 96365; 96366; 96367; 96372; 96375; 96376; 99285; A9270; C9113; G0378; J0696; J1650; J1885; J3370; J3475; J7030; J7050; J7120; Q9967; 87186; J2060

== ENCOUNTER 2020-09-02 05:54 | Emergency (ER) | payer SELFPAY ==
[2020-09-02] MEDS ORDERED: Lactated Ringers 1,000 ML IV ONE (06:39)
--- NOTE | 2020-09-02 07:05 | EDM.PDOC ---
<Aiden Corado - Last Filed: 09/02/20 07:05> ED HPI GENERAL MEDICAL PROBLEM - General Chief Complaint: General Stated Complaint: WHOLE BODY HURTS Time Seen by Provider: 09/02/20 06:24 - History of Present Illness INITIAL COMMENTS - FREE TEXT/NARRATIVE: CHIEF COMPLAINT(S): "Everything hurts." HISTORY OF PRESENT ILLNESS: This is a 39-year-old woman with a past medical history of type 1 diabetes mellitus, polysubstance use, prior history of infective endocarditis who was recently admitted on 08/15/2020 who left AGAINST MEDICAL ADVICE who comes to the emergency department with a chief complaint of "everything hurts." The patient states that approximately 1 day ago she started to feel her whole body hurting. She describes the pain as "feels like pain." She could not describe it any further. She does not know if it radiates. She rates her pain a 7 out of 10. She states that sitting makes it worse and that sleeping helps it. She states that she tried Tylenol without any relief. She states that she does not know if she has any other symptoms. REVIEW OF SYSTEMS: Review of systems essentially unable to be obtained as patient states that she does not know if she has the symptoms. Her only review of systems that is positive is that her whole body hurts. PAST MEDICAL HISTORY: As per history of present illness and as reviewed below otherwise noncontributory. SURGICAL HISTORY: As per history of present illness and as reviewed below otherwise noncontributory. SOCIAL HISTORY: As per history of present illness and as reviewed below otherwise noncontributory. FAMILY HISTORY: As per history of present illness and as reviewed below otherwise noncontributory. EXAMINATION OF ORGAN SYSTEMS/BODY AREAS: Constitutional: Blood pressure is 146/66, heart rate 110, respiratory rate 20 with an oxygen saturation 99% on room air. Temperature 37.2. General: Young woman who is laying on her side and does not appear to be in acute distress Psychiatric: Uncooperative otherwise does not appear to be responding to inner stimuli Eyes: No scleral icterus or conjunctival erythema ENMT: Dry mucous membranes. No pharyngeal erythema Cardiovascular: Tachycardic but regular no gallops, murmurs, or rubs. Bilateral upper extremity pulses symmetric and intact. No peripheral edema. No JVD. Respiratory: Lungs clear to auscultation bilaterally. No wheezes, rales, or rhonchi. Gastrointestinal: Soft, non-tender, non-distended. Normoactive bowel sounds Genitourinary: No suprapubic tenderness Musculoskeletal: Normal range of motion. Skin: No lesions or abrasions. Neurological: Alert and oriented x4. GCS of 15 MEDICAL DECISION MAKING AND COURSE IN THE ED WITH INTERPRETATION/REVIEW OF DIAGNOSTIC STUDIES: This is a 39-year-old woman with a complex past medical history including type 1 diabetes mellitus, prior history of infective endocarditis, polysubstance use who comes to the emergency department with total body pain who is afebrile and tachycardic and normotensive. It does appear that the patient left AGAINST MEDICAL ADVICE and declined echocardiogram. At this time the patient is afebrile with no signs of endocarditis on examination we will obtain screening laboratory analysis. We will provide the patient with 1 L of lactated Ringer's bolus for tachycardia. DISPOSITION: Patient was signed out to oncoming day team physician pending reevaluation and laboratory analysis CONDITION: Fair PROCEDURES: None FINAL IMPRESSION(S)/DIAGNOSES: 1. Acute generalized body aches Aiden Corado M.D. generalized Pain Score (Numeric/FACES): 7 - Related Data Allergies Allergy/AdvReac Type Severity Reaction Status Date / Time bee venom protein (honey bee) Allergy Other Verified 09/02/20 06:01 codeine Allergy Shortness Verified 09/02/20 06:01 of Breath iodine Allergy Other Verified 09/02/20 06:01 Penicillins Allergy Anaphylactic Verified 09/02/20 06:01 Shock shellfish derived Allergy Other Verified 09/02/20 06:01 Sulfa (Sulfonamide Allergy Hives Verified 09/02/20 06:01 Antibiotics) sulfamethoxazole Allergy Hives Verified 09/02/20 06:01 [From Bactrim] trimethoprim [From Bactrim] Allergy Hives Verified 09/02/20 06:01 Home Meds: Home Meds Insulin Aspart [NovoLOG] 30 units SQ DAILY 12/27/17 [History] Insulin Lispro [HumaLOG] 30 units SQ DAILY 12/27/17 [History] Cefdinir 300 mg PO Q12HR #20 capsule 09/02/20 [Rx] Ketorolac [Toradol] 10 mg PO TID PRN #20 tab 06/28/21 [Rx] Past Medical History - Past Health History Medical/Surgical History: Denies Medical/Surgical History HEENT History: Reports: Other (See Below) Other HEENT History: missing teeth Cardiovascular History: Reports: Bacterial Endocarditis, Cardiomyopathy, DE, Other (See Below) Other Cardiovascular History: Mitral Valve Prolapse Respiratory History: Reports: None Gastrointestinal History: Reports: Cholelithiasis Other Genitourinary History: polycystic kidney disease [employer]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 History: Musculoskeletal History: Reports: Other (See Below) Other Musculoskeletal History: chronic hip pain Neurological History: Reports: Seizure Psychiatric History: Reports: Addiction, Anxiety Endocrine/Metabolic History: Reports: Diabetes, Type I Hematologic History: Reports: Other (See Below) Other Hematologic History: pt reports low white blood cell count Oncologic (Cancer) History: Reports: Breast Dermatologic History: Reports: Cellulitis, Chronic Cellulitis - Infectious Disease History Infectious Disease History: Reports: MRSA Other Infectious Disease History: MSSA - Past Surgical History Head Surgeries/Procedures: Reports: None Female Surgical History: Reports: Ureteral Stent Oncologic Surgical History: Reports: Lumpectomy Other Oncologic Surgeries/Procedures: left breast lumpectomy Social & Family History - Family History Family Medical History: No Pertinent Family History - Tobacco Use Tobacco Use Status *Q: Current Every Day Tobacco User Years of Tobacco use: 20 Packs/Tins Daily: 0.5 - Caffeine Use Caffeine Use: Reports: None Caffeine Use Comment: 2-4 daily - Recreational Drug Use Recreational Drug Use: Yes Recreational Drug Type: Reports: Marijuana/Hashish, Methamphetamine ED ROS GENERAL - Review of Systems Review Of Systems: See Below ED EXAM, GENERAL - Physical Exam Exam: See Below Departure - Departure Disposition: Against Medical Advice 07 Clinical Impression: Methamphetamine use Urinary tract infection Qualifiers: Urinary tract infection type: acute cystitis Hematuria presence: without hematuria Qualified Code(s): N30.00 - Acute cystitis without hematuria - Discharge Information Instructions: Urinary Tract Infection, Adult, Illegal Drug Use Information, Adult, Methamphetamines Use Disorder Referrals: PCP,None [Primary Care Provider] - Forms: ED Department Discharge Additional Instructions: You were seen and evaluated in the ER today secondary to your whole body hurting. Your evaluation in the ED today is limited secondary to refusing to obtain radiological studies as well as blood testing. Urine did reveal that you do have a urinary tract infection which we will start you on antibiotics for. We will also give you a prescription for Toradol per your request. Please return to the ED if you should change her mind regarding allowing further testing done here in the ED. As we have discussed, you understand the limitations of our evaluation the ER without further testing and understand that you run the risk of organ failure as well as the risk of possible without allowing us to further evaluate your symptoms. Please follow-up with your family doctor within the next 1 to 2 days for reevaluation. The following information is given to patients seen in the emergency department who are being discharged to home. This information is to outline your options for follow-up care. We provide all patients seen in our emergency department with a follow-up referral. The need for follow-up, as well as the timing and circumstances, are variable depending upon the specifics of your emergency department visit. If you don't have a primary care physician on staff, we will provide you with a referral. We always advise you to contact your personal physician following an emergency department visit to inform them of the circumstance of the visit and for follow-up with them and/or the need for any referrals to a consulting specialist. The emergency department will also refer you to a specialist when appropriate. This referral assures that you have the opportunity for follow-up care with a specialist. All of these measure are taken in an effort to provide you with optimal care, which includes your follow-up. Under all circumstances we always encourage you to contact your private physician who remains a resource for coordinating your care. When calling for follow-up care, please make the office aware that this follow-up is from your recent emergency room visit. If for any reason you are refused follow-up, please contact the [facility] Emergency Department at and asked to speak to the emergency department charge nurse. [facility] [address] [place] [id number] [facility] [address] [place] [address] Sepsis Event Note (ED) - Evaluation Sepsis Screening Result: No Definite Risk <Golden Romero - Last Filed: 09/02/20 08:38> ED HPI GENERAL MEDICAL PROBLEM - History of Present Illness INITIAL COMMENTS - FREE TEXT/NARRATIVE: 8:30 AM: Signout received at 7 AM. Patient presents ER today complaining of generalized malaise and body aches. Patient has refused multiple attempts at IV access and blood draws in the ED. Patient is resting comfortably in the ED. I have discussed with the patient allow us to try to put central access on her and she is adamantly refusing. Patient is refusing any further blood testing in the ED. Patient reports that she had signed out AGAINST MEDICAL ADVICE while in the hospital because she does not like being in the hospital and does not like tests being performed on her. Patient has refused a CT scan as well as refused further blood testing. I have discussed with the patient the limitations of ER or hospital evaluation without blood tests. She has agreed to give us to urinalysis which does reveal a slight UTI. Patient reports that she been having symptoms consistent with a urinary tract infection and she believes that that is the cause of all her symptoms. She reports that she was given an antibiotic that has not worked prior. At this time, the patient has verbalized understanding of the limitations of her evaluation in the ED and that I am unable to rule out organ or life-threatening pathology without conducting further tests. Patient reports that she does not any further testing done despite that understanding and is willing to take the risks. Patient understands the risks of and organ failure without further assessment. Patient is exhibiting both the capacity for medical decision and competency to make adequate decisions on her own. Given this fact, I will respect the patient's autonomy and will allow her to refuse further testing and to sign out from the hospital. Patient understand that she will need to sign out AGAINST MEDICAL ADVICE and that she can return to the ED at any time to have further testing performed. Patient will be given a prescription for Omnicef 300 mg twice a day for 10 days as well as a prescription for Toradol per her request. Abd: Soft, nondistended, no rebound/guarding, no psoas or obturator signs, no tenderness at Mcberney's point, no Aly's sign. Pt does not present with an exam that would be consistent with an acute surgical abdomen at this time Neuro: A&Ox3. Cranial nerves II-XII grossly intact, 5/5 strength to bilateral upper and lower extremities, sensation intact to bilateral upper and lower extremities, no nystagmus, PERRLA, EOMI, normal speech, proprioception intact to bilateral lower extremities, normal finger to nose test, gait normal Course - Vital Signs Last Recorded V/S: Last Vital Signs Temp 98.9 F 09/02/20 06:03 Pulse 110 H 09/02/20 06:03 Resp 20 09/02/20 06:03 BP 146/66 H 09/02/20 06:03 Pulse Ox 99 09/02/20 06:03 - Orders/Labs/Meds Orders: Active Orders 24 hr Category Date Time Status Blood Glucose Check, Bedside [RC] ONETIME Care 09/02/20 06:09 Active EKG Documentation Completion [RC] STAT Care 09/02/20 06:40 Active CBC WITH AUTO DIFF [HEME] Stat Lab 09/02/20 06:39 Ordered COMPREHENSIVE METABOLIC PN,CMP [CHEM] Stat Lab 09/02/20 06:39 Ordered LACTATE SEPSIS W/ REFLEX [CHEM] Stat Lab 09/02/20 06:39 Ordered MAGNESIUM [CHEM] Stat Lab 09/02/20 06:39 Ordered Labs: Laboratory Tests 09/02/20 09/02/20 09/02/20 Range/Units 07:02 07:35 07:35 POC Glucose 98 (70-99) mg/dL Urine Color YELLOW Urine Appearance CLOUDY Urine pH 8.5 H (5.0-8.0) Ur Specific [place] 1.020 (1.001-1.035) Urine Protein NEGATIVE (NEGATIVE) mg/dL Urine Glucose (UA) NEGATIVE (NEGATIVE) mg/dL Urine Ketones NEGATIVE (NEGATIVE) mg/dL Urine Occult Blood NEGATIVE (NEGATIVE) Urine Nitrite POSITIVE H (NEGATIVE) Urine Bilirubin NEGATIVE (NEGATIVE) Urine Urobilinogen 1.0 (<2.0) EU/dL Ur Leukocyte Esterase TRACE H (NEGATIVE) Urine RBC 0-2 (0-2/HPF) Urine WBC 5-10 (0-5/HPF) Ur Epithelial Cells MANY (NONE-FEW) Urine Bacteria 4+ H (NEGATIVE) Urine Opiates Screen NEGATIVE (NEGATIVE) Ur Oxycodone Screen NEGATIVE (NEGATIVE) Urine Methadone Screen NEGATIVE (NEGATIVE) Ur Barbiturates Screen NEGATIVE (NEGATIVE) Ur Phencyclidine Scrn NEGATIVE (NEGATIVE) Ur Amphetamine Screen POSITIVE (NEGATIVE) U Methamphetamines Scrn POSITIVE (NEGATIVE) U Benzodiazepines Scrn NEGATIVE (NEGATIVE) U Cocaine Metab Screen NEGATIVE (NEGATIVE) U Marijuana (THC) Screen POSITIVE (NEGATIVE) Meds: Medications Discontinued Medications Generic Name Dose Route Start Last Admin Trade Name Freq PRN Reason Stop Dose Admin Cefdinir 300 mg 09/02/20 08:23 Cefdinir 300 Mg Cap PO 09/02/20 08:24 ONETIME ONE Lactated Ringer's 1,000 mls @ 999 mls/hr 09/02/20 06:39 09/02/20 08:25 Ringers, Lactated IV 09/02/20 07:39 Not Given .BOLUS ONE Departure - Departure Time of Disposition: 08:33 Condition: Undetermined Sepsis Event Note (ED) - Focused Exam Vital Signs: Vital Signs Temp Pulse Resp BP Pulse Ox 09/02/20 06:03 98.9 F 110 H 20 146/66 H 99
[2020-09-02] MEDS ORDERED: Cefdinir 300 MG Cap PO ONE (08:23)
[2020-09-02 08:53] VITALS: BP 116/62; PULSE 118
== END 2020-09-02 08:54 | disposition left against medical advice (07) ==
LOC: MW.ED 05:54
DX: N30.00 Acute cystitis without hematuria (principal); F15.90 Other stimulant use, unspecified, uncomplicated; R52 Pain, unspecified; I25.2 Old myocardial infarction; E10.9 Type 1 diabetes mellitus without complications; Z72.0 Tobacco use; Z91.030 Bee allergy status; Z88.5 Allergy status to narcotic agent; Z88.0 Allergy status to penicillin; Z91.013 Allergy to seafood; Z88.2 Allergy status to sulfonamides; Z88.1 Allergy status to other antibiotic agents; Z79.899 Other long term (current) drug therapy; Z88.8 Allergy status to other drugs, medicaments and biological substances
CPT/HCPCS: 80305; 81001; 82947; 99284; A9270; 99282

== ENCOUNTER 2021-03-02 16:59 | Emergency (ER) | payer SELFPAY ==
[2021-03-02 17:14] VITALS: BP 114/64; PULSE 106
== END 2021-03-02 20:00 | disposition left against medical advice (07) ==
LOC: MW.ED 16:59
DX: Z53.21 Procedure and treatment not carried out due to patient leaving prior to being seen by health care provider (principal)

== ENCOUNTER 2021-06-25 15:40 | Emergency (ER) | payer SELFPAY ==
[2021-06-25] MEDS ORDERED: Sodium Chloride 0.9% 2.5 ML Syringe FLUSH PRN (16:18)
[2021-06-25] MEDS ORDERED: Sodium Chloride 0.9% 10 ML Syringe FLUSH PRN (16:18)
[2021-06-25] MEDS ORDERED: Ketorolac 60 MG/2 ML SDV IM ONE (17:10)
[2021-06-25] MEDS ORDERED: Lidocaine 1% 5 ML VIAL ONE (17:59)
[2021-06-25] MEDS ORDERED: Lidocaine 1% 5 ML VIAL INJECT ONE (18:40)
[2021-06-25 21:31] VITALS: BP 135/78; PULSE 76
== END 2021-06-25 18:40 | disposition home or self-care (01) ==
LOC: MW.ED 15:40
DX: N93.9 Abnormal uterine and vaginal bleeding, unspecified (principal); R51.9 Headache, unspecified; I25.2 Old myocardial infarction; E10.9 Type 1 diabetes mellitus without complications; Z88.0 Allergy status to penicillin; Z88.5 Allergy status to narcotic agent; Z88.2 Allergy status to sulfonamides; Z91.013 Allergy to seafood; Z88.1 Allergy status to other antibiotic agents
CPT/HCPCS: 76856; 76856-26; 99284-25

== ENCOUNTER 2021-06-29 14:44 | Observation (INO) | payer SELFPAY ==
[2021-06-29] MEDS ORDERED: Sodium Chloride 0.9% 2.5 ML Syringe FLUSH PRN (16:38)
[2021-06-29] MEDS ORDERED: Sodium Chloride 0.9% 10 ML Syringe FLUSH PRN (16:38)
[2021-06-29] MEDS ORDERED: Sodium Chloride 0.9% 1,000 ML IV ONE (17:37)
[2021-06-29 18:15] LABS: BLOOD UREA NITROGEN,BUN 6 mg/dL (7.0-18.0); CARBON DIOXIDE,CO2 26.2 mmol/L (21.0-32.0); CHLORIDE,CL 102 mmol/L (98-107); GLUCOSE RANDOM 105 mg/dL (74-106); POTASSIUM,K 4.4 mmol/L (3.5-5.1); SODIUM,NA 135 mmol/L (136-145)
[2021-06-29] MEDS ORDERED: Acetaminophen 500 MG Tab PO ONE (19:36)
[2021-06-29] MEDS ORDERED: VANCOmycin 1.75 GM/350 ML 1.75 GM in Premix Bag 1 BAG IV ONE (20:30)
[2021-06-29] MEDS ORDERED: VANCOmycin 2 GM/400 ML 2 GM in Premix Bag 1 BAG IV ONE (20:45)
[2021-06-29] MEDS ORDERED: Albuterol/Ipratropium 3.0-0.5 MG/3 ML Neb Soln NEB PRN (21:43)
[2021-06-29] MEDS ORDERED: Ondansetron 4 MG/2 ML SDV IVPUSH PRN (21:43)
[2021-06-29] MEDS ORDERED: Enoxaparin 40 MG/0.4 ML Syringe SUBCUT SCH (21:45)
[2021-06-29] MEDS ORDERED: Lactated Ringers 1,000 ML IV SCH (21:45)
[2021-06-29] MEDS: Acetaminophen 325 MG Tab PO PRN (22:44)
[2021-06-30] MEDS ORDERED: 50% Dextrose in Water 50 ML Syringe IVPUSH PRN (00:05)
[2021-06-30] MEDS ORDERED: Glucagon,Human Recombinant 1 MG Vial IM PRN (00:05)
[2021-06-30] MEDS: Ketorolac 30 MG/ML SDV IVPUSH PRN ×2 (00:59→06:47)
[2021-06-30] MEDS: Acetaminophen 325 MG Tab PO PRN (04:18)
[2021-06-30] MEDS: Insulin Aspart 100 Units/ML 3 ML Pen SUBCUT SCH ×2 (06:47→14:18)
[2021-06-30 11:04] VITALS: BP 101/61; PULSE 88
== END 2021-06-30 13:30 | disposition left against medical advice (07) ==
LOC: MW.ED 14:44 → MW.MS 19:28
PROVIDERS: ADMIT Student in an Organized Health Care Education/Training Program; ATTEND Student in an Organized Health Care Education/Training Program
DX: R07.89 Other chest pain (principal); E10.9 Type 1 diabetes mellitus without complications; I25.2 Old myocardial infarction; F41.9 Anxiety disorder, unspecified; F19.10 Other psychoactive substance abuse, uncomplicated; Z98.890 Other specified postprocedural states; Z91.030 Bee allergy status; Z88.5 Allergy status to narcotic agent; Z88.8 Allergy status to other drugs, medicaments and biological substances; Z88.0 Allergy status to penicillin; Z88.2 Allergy status to sulfonamides; Z20.822 Contact with and (suspected) exposure to COVID-19
CPT/HCPCS: 36415; 71046; 80053; 81001; 82947; 84484; 84703; 85025; 85652; 86140; 87040; 87635; 93005; 93306; 96372; 96374; 96375; 96376; 99285; A9270; G0378; J1650; J1885; J3370; J7030; J7050; J7120; U0002

== ENCOUNTER 2021-06-30 18:15 | Emergency (ER) | payer SELFPAY ==
[2021-06-30] MEDS ORDERED: Sodium Chloride 0.9% 1,000 ML IV ONE (19:04)
[2021-06-30] MEDS ORDERED: Ketorolac 30 MG/ML SDV IVPUSH ONE (19:05)
[2021-06-30 19:40] LABS: BLOOD UREA NITROGEN,BUN 8 mg/dL (7.0-18.0); CARBON DIOXIDE,CO2 25.5 mmol/L (21.0-32.0); CHLORIDE,CL 101 mmol/L (98-107); GLUCOSE RANDOM 112 mg/dL (74-106); POTASSIUM,K 4.5 mmol/L (3.5-5.1); SODIUM,NA 135 mmol/L (136-145)
[2021-06-30] MEDS ORDERED: Iopamidol 755 MG/ML 500 ML Multipack Bottle IVPUSH STA (19:57)
[2021-06-30] MEDS ORDERED: LORazepam 2 MG/ML SDV IVPUSH ONE (21:00)
[2021-06-30 22:29] VITALS: BP 106/65; PULSE 85
== END 2021-06-30 22:26 | disposition home or self-care (01) ==
LOC: MW.ED 18:15
DX: R07.89 Other chest pain (principal); F19.90 Other psychoactive substance use, unspecified, uncomplicated; E10.9 Type 1 diabetes mellitus without complications; I25.2 Old myocardial infarction; Z72.0 Tobacco use; Z91.030 Bee allergy status; Z88.5 Allergy status to narcotic agent; Z88.0 Allergy status to penicillin; Z91.041 Radiographic dye allergy status; Z91.013 Allergy to seafood; Z88.2 Allergy status to sulfonamides; Z79.4 Long term (current) use of insulin
CPT/HCPCS: 36415; 71275; 80053; 81003; 82803; 83605; 84484; 85025; 87040; 93005; 96374; 96375; 99285; J1885; J2060; J7030; Q9967

== ENCOUNTER 2021-07-01 04:55 | Observation (INO) | payer SELFPAY ==
[2021-07-01] MEDS ORDERED: Lactated Ringers 1,000 ML IV ONE ×3 (05:00→12:59)
[2021-07-01] MEDS ORDERED: Sodium Chloride 0.9% 10 ML Syringe FLUSH PRN (05:01)
[2021-07-01] MEDS ORDERED: Sodium Chloride 0.9% 2.5 ML Syringe FLUSH PRN (05:01)
[2021-07-01] MEDS ORDERED: Cefepime 2 GM in Sodium Chloride 0.9% 50 ML IV ONE (05:15)
[2021-07-01] MEDS ORDERED: Acetaminophen 500 MG Tab PO ONE (05:16)
[2021-07-01] MEDS ORDERED: LORazepam 2 MG/ML SDV IVPUSH STA (05:29)
[2021-07-01] MEDS ORDERED: VANCOmycin 2 GM/400 ML 2 GM in Premix Bag 1 BAG IV ONE (05:30)
[2021-07-01 05:39] LABS: BLOOD UREA NITROGEN,BUN 6 mg/dL (7.0-18.0); CARBON DIOXIDE,CO2 22.7 mmol/L (21.0-32.0); CHLORIDE,CL 102 mmol/L (98-107); GLUCOSE RANDOM 141 mg/dL (74-106); POTASSIUM,K 3.6 mmol/L (3.5-5.1); SODIUM,NA 135 mmol/L (136-145)
[2021-07-01] MEDS ORDERED: Lactated Ringers 1,000 ML IV STA (05:48)
[2021-07-01] MEDS ORDERED: Ketorolac 30 MG/ML SDV IVPUSH ONE (05:50)
[2021-07-01 06:28] LABS: CORONAVIRUS COVID-19 NAA NEGATIVE (NEGATIVE); INFLUENZA A NAA NEGATIVE (NEGATIVE); INFLUENZA B NAA NEGATIVE (NEGATIVE)
[2021-07-01] MEDS ORDERED: Ondansetron 4 MG/2 ML SDV IVPUSH PRN (09:04)
[2021-07-01] MEDS ORDERED: Piperacillin/Tazobactam 4.5 GM in Sodium Chloride 0.9% 100 ML IV SCH (09:30)
[2021-07-01] MEDS ORDERED: Albuterol/Ipratropium 3.0-0.5 MG/3 ML Neb Soln NEB PRN (10:00)
[2021-07-01] MEDS: cefTRIAXone 2 GM/50 ML BAG IV SCH ×2 (10:39→21:32)
[2021-07-01] MEDS: Acetaminophen 325 MG Tab PO PRN (15:30)
[2021-07-01] MEDS: Ketorolac 30 MG/ML SDV IVPUSH PRN (17:07)
[2021-07-01] MEDS: LORazepam 0.5 MG Tab PO PRN ×2 (17:13→21:34)
[2021-07-01] MEDS: Lactated Ringers 1,000 ML IV SCH ×2 (17:15→17:16)
[2021-07-01] MEDS ORDERED: LORazepam 2 MG/ML SDV IVPUSH ONE (22:54)
[2021-07-01] MEDS ORDERED: Morphine 2 MG/ML SYRINGE IVPUSH ONE (22:55)
[2021-07-01] MEDS ORDERED: LORazepam 2 MG/ML SDV IVPUSH PRN (23:21)
[2021-07-02] MEDS: Ketorolac 30 MG/ML SDV IVPUSH PRN ×2 (00:25→07:19)
[2021-07-02] MEDS: Acetaminophen 325 MG Tab PO PRN (08:06)
[2021-07-02] MEDS ORDERED: Glucagon,Human Recombinant 1 MG Vial IM PRN (08:34)
[2021-07-02] MEDS ORDERED: 50% Dextrose in Water 50 ML Syringe IVPUSH PRN (08:34)
[2021-07-02] MEDS ORDERED: Sodium Chloride 0.9% 10 ML Syringe FLUSH PRN (08:34)
[2021-07-02] MEDS ORDERED: Sodium Chloride 0.9% 2.5 ML Syringe FLUSH PRN (08:34)
[2021-07-02] MEDS ORDERED: LORazepam 1 MG Tab PO SCH (09:00)
[2021-07-02 09:07] VITALS: PULSE 101
[2021-07-02 09:32] VITALS: BP 115/69
[2021-07-02] MEDS: cefTRIAXone 2 GM/50 ML BAG IV SCH (10:48)
[2021-07-02] MEDS: Lactated Ringers 1,000 ML IV SCH ×2 (11:06)
[2021-07-02] MEDS ORDERED: Insulin Aspart 100 Units/ML 3 ML Pen SUBCUT SCH (11:30)
[2021-07-02] MEDS ORDERED: Meropenem 2 GM in Sodium Chloride 0.9% 100 ML IV SCH (12:15)
== END 2021-07-02 14:15 | disposition left against medical advice (07) ==
LOC: MW.ED 04:55 → MW.MS 06:07
PROVIDERS: ADMIT Student in an Organized Health Care Education/Training Program; ATTEND Student in an Organized Health Care Education/Training Program
DX: F15.959 Other stimulant use, unspecified with stimulant-induced psychotic disorder, unspecified (principal); E11.9 Type 2 diabetes mellitus without complications; D72.829 Elevated white blood cell count, unspecified; F17.200 Nicotine dependence, unspecified, uncomplicated; Z88.5 Allergy status to narcotic agent; Z88.0 Allergy status to penicillin; Z88.2 Allergy status to sulfonamides; Z91.013 Allergy to seafood; Z91.030 Bee allergy status; Z79.84 Long term (current) use of oral hypoglycemic drugs; Z20.822 Contact with and (suspected) exposure to COVID-19
CPT/HCPCS: 0240U; 36415; 80053; 80305; 81001; 83605; 85025; 85610; 87040; 96365; 96367; 96375; 96376; 99285; A9270; G0378; J0692; J0696; J1885; J2060; J2185; J2270; J3370; J3490; J7050; J7120

== ENCOUNTER 2021-08-16 02:04 | Emergency (ER) | payer SELFPAY | END 2021-08-16 03:01 | disposition left against medical advice (07) | LOC: MW.ED 02:04 | DX: Z53.21 Procedure and treatment not carried out due to patient leaving prior to being seen by health care provider (principal) ==

== ENCOUNTER 2021-08-16 23:45 | Emergency (ER) | payer SELFPAY ==
[2021-08-17] MEDS ORDERED: Lactated Ringers 1,000 ML IV STA (00:51)
[2021-08-17] MEDS ORDERED: Ketorolac 30 MG/ML SDV IVPUSH STA (00:51)
[2021-08-17 01:07] LABS: BLOOD UREA NITROGEN,BUN 5 mg/dL (7.0-18.0); CARBON DIOXIDE,CO2 23.1 mmol/L (21.0-32.0); CHLORIDE,CL 101 mmol/L (98-107); GLUCOSE RANDOM 114 mg/dL (74-106); POTASSIUM,K 3.5 mmol/L (3.5-5.1); SODIUM,NA 134 mmol/L (136-145)
[2021-08-17 01:13] LABS: ESTIMATED GFR > 60.0 ml/min
[2021-08-17] MEDS ORDERED: Iopamidol 755 MG/ML 500 ML Multipack Bottle IVPUSH ONE (02:15)
[2021-08-17] MEDS ORDERED: Nitrofurantoin Macrocrystal 50 MG Cap PO STA (02:20)
[2021-08-17] MEDS ORDERED: Nitrofurantoin Monohydrate/Macrocrystalline 100 MG Cap PO ONE (02:33)
[2021-08-17 02:55] VITALS: BP 112/43; PULSE 103
== END 2021-08-17 02:54 | disposition home or self-care (01) ==
LOC: MW.ED 23:45
DX: N39.0 Urinary tract infection, site not specified (principal); F15.93 Other stimulant use, unspecified with withdrawal; F11.93 Opioid use, unspecified with withdrawal; I25.2 Old myocardial infarction; E10.9 Type 1 diabetes mellitus without complications; Z79.4 Long term (current) use of insulin; Z88.5 Allergy status to narcotic agent; Z91.041 Radiographic dye allergy status; Z88.0 Allergy status to penicillin; Z91.013 Allergy to seafood; Z88.2 Allergy status to sulfonamides
CPT/HCPCS: 36415; 72128; 74177; 80048; 81001; 81025; 82247; 82550; 83605; 85025; 85610; 87086; 87088; 87186; 96361; 96374; 99284; A9270; J1885; J7120; Q9967

== ENCOUNTER 2021-08-22 01:54 | Emergency (ER) | payer SELFPAY ==
[2021-08-22] MEDS ORDERED: Pantoprazole 80 MG in Sodium Chloride 0.9% 10 ML IVPUSH ONE (02:13)
[2021-08-22] MEDS ORDERED: Lactated Ringers 1,000 ML IV STA (02:13)
[2021-08-22 03:22] LABS: ACETAMINOPHEN <2.0 ug/mL; BLOOD UREA NITROGEN,BUN 9 mg/dL (7.0-18.0); CARBON DIOXIDE,CO2 25.3 mmol/L (21.0-32.0); CHLORIDE,CL 102 mmol/L (98-107); GLUCOSE RANDOM 97 mg/dL (74-106); POTASSIUM,K 3.9 mmol/L (3.5-5.1); SODIUM,NA 134 mmol/L (136-145)
[2021-08-22 03:25] LABS: ESTIMATED GFR 83 mL/min (>60)
[2021-08-22] MEDS ORDERED: Acetaminophen/HYDROcodone 325-10 MG Tab PO ONE (04:20)
[2021-08-22 05:41] VITALS: BP 103/52; PULSE 102
== END 2021-08-22 05:40 | disposition home or self-care (01) ==
LOC: MW.ED 01:54
DX: R10.9 Unspecified abdominal pain (principal); M54.9 Dorsalgia, unspecified; I25.2 Old myocardial infarction; E10.9 Type 1 diabetes mellitus without complications; F17.210 Nicotine dependence, cigarettes, uncomplicated; Z88.5 Allergy status to narcotic agent; Z91.030 Bee allergy status; Z91.013 Allergy to seafood; Z88.2 Allergy status to sulfonamides; Z88.1 Allergy status to other antibiotic agents; Z91.041 Radiographic dye allergy status; Z20.822 Contact with and (suspected) exposure to COVID-19
CPT/HCPCS: 36415; 36569; 70450; 71045; 74176; 80053; 80143; 80179; 81001; 82550; 82803; 83605; 83735; 84703; 85025; 85610; 87040; 87635; 93005; 96361; 96374; 99284; A9270; C9113; J3490; J7120; U0002

== ENCOUNTER 2021-10-01 17:28 | Emergency (ER) | payer SELFPAY ==
[2021-10-01] MEDS ORDERED: Sodium Chloride 0.9% 2.5 ML Syringe FLUSH PRN (17:48)
[2021-10-01] MEDS ORDERED: Sodium Chloride 0.9% 10 ML Syringe FLUSH PRN (17:48)
[2021-10-01 17:56] VITALS: BP 176/90; PULSE 120
[2021-10-01] MEDS ORDERED: Sodium Chloride 0.9% 1,000 ML IV ONE (18:27)
[2021-10-01 18:51] LABS: CARBON DIOXIDE,CO2 20.3 mmol/L (21.0-32.0)
== END 2021-10-01 19:51 | disposition left against medical advice (07) ==
LOC: MW.ED 17:28
DX: R30.0 Dysuria (principal); R10.30 Lower abdominal pain, unspecified; R06.00 Dyspnea, unspecified; E87.2 Acidosis; R79.89 Other specified abnormal findings of blood chemistry; I25.2 Old myocardial infarction; E10.9 Type 1 diabetes mellitus without complications; Z91.030 Bee allergy status; Z88.5 Allergy status to narcotic agent; Z88.0 Allergy status to penicillin; Z88.2 Allergy status to sulfonamides; Z91.013 Allergy to seafood; Z88.1 Allergy status to other antibiotic agents; Z79.899 Other long term (current) drug therapy; Z53.8 Procedure and treatment not carried out for other reasons
CPT/HCPCS: 36415; 71045; 80053; 82550; 83605; 83690; 84484; 84703; 85025; 85379; 87040; 96360; 99285; J7030

== ENCOUNTER 2021-12-04 23:37 | Emergency (ER) | payer SELFPAY ==
[2021-12-05] MEDS ORDERED: Ondansetron 4 MG Tab.DIS PO ONE (00:11)
[2021-12-05 01:19] LABS: CORONAVIRUS COVID-19 NAA NEGATIVE (NEGATIVE); INFLUENZA A NAA NEGATIVE (NEGATIVE); INFLUENZA B NAA NEGATIVE (NEGATIVE)
[2021-12-05] MEDS ORDERED: Lactated Ringers 1,000 ML IV ONE (03:45)
[2021-12-05] MEDS ORDERED: Ketorolac 30 MG/ML SDV IVPUSH ONE (03:45)
[2021-12-05] MEDS ORDERED: Sodium Chloride 0.9% 1,000 ML IV ONE (03:53)
[2021-12-05 04:18] LABS: CARBON DIOXIDE,CO2 23.2 mmol/L (21.0-32.0); POTASSIUM,K 4.5 mmol/L (3.5-5.1)
[2021-12-05 06:16] VITALS: BP 116/60; PULSE 82
== END 2021-12-05 06:14 | disposition home or self-care (01) ==
LOC: MW.ED 23:37
DX: N39.0 Urinary tract infection, site not specified (principal); E10.9 Type 1 diabetes mellitus without complications; I25.2 Old myocardial infarction; Z91.030 Bee allergy status; Z88.0 Allergy status to penicillin; Z88.5 Allergy status to narcotic agent; Z91.013 Allergy to seafood; Z91.041 Radiographic dye allergy status; Z88.1 Allergy status to other antibiotic agents; Z88.2 Allergy status to sulfonamides; Z20.822 Contact with and (suspected) exposure to COVID-19
CPT/HCPCS: 0240U; 36415; 80053; 81001; 82009; 82803; 82947; 85025; 96361; 96374; 99284; A9270; J1885; J7030; 99283

== ENCOUNTER 2022-07-04 17:55 | Emergency (ER) | payer SELFPAY ==
[2022-07-04] MEDS ORDERED: Sodium Chloride 0.9% 10 ML Syringe FLUSH PRN (18:21)
[2022-07-04] MEDS ORDERED: Sodium Chloride 0.9% 2.5 ML Syringe FLUSH PRN (18:21)
[2022-07-04] MEDS ORDERED: Ondansetron 4 MG Tab.DIS PO STA (18:36)
[2022-07-04 19:19] LABS: LIPASE 47 U/L (73-393)
[2022-07-04] MEDS ORDERED: Sodium Chloride 0.9% 1,000 ML IV STA (19:33)
[2022-07-04] MEDS ORDERED: Magnesium Sulfate/Water 2 GM in Premix Bag 1 BAG IV STA (19:33)
[2022-07-04 19:37] LABS: CARBON DIOXIDE,CO2 23.5 mmol/L (21.0-32.0); POTASSIUM,K 4.6 mmol/L (3.5-5.1)
[2022-07-04] MEDS ORDERED: Cefdinir 300 MG Cap PO STA (21:14)
[2022-07-04] MEDS ORDERED: Nitrofurantoin Monohydrate/Macrocrystalline 100 MG Cap PO STA (21:31)
[2022-07-04 21:48] VITALS: BP 108/58; PULSE 95
== END 2022-07-04 21:48 | disposition home or self-care (01) ==
LOC: MW.ED 17:55
DX: N30.00 Acute cystitis without hematuria (principal); F19.10 Other psychoactive substance abuse, uncomplicated; E10.9 Type 1 diabetes mellitus without complications; I25.2 Old myocardial infarction; F17.210 Nicotine dependence, cigarettes, uncomplicated; Z91.030 Bee allergy status; Z88.5 Allergy status to narcotic agent; Z88.0 Allergy status to penicillin; Z88.8 Allergy status to other drugs, medicaments and biological substances; Z88.2 Allergy status to sulfonamides; Z91.013 Allergy to seafood; Z91.041 Radiographic dye allergy status
CPT/HCPCS: 36415; 80053; 80305; 80307; 81001; 82947; 83690; 83735; 85025; 87086; 87088; 87186; 96361; 96365; 99284; A9270; J3475; J3490; J7030; 99283

== ENCOUNTER 2023-11-30 20:12 | Emergency (ER) | payer SELFPAY ==
[2023-11-30] MEDS ORDERED: Sodium Chloride 0.9% 2.5 ML Syringe FLUSH PRN (21:26)
[2023-11-30] MEDS ORDERED: Sodium Chloride 0.9% 10 ML Syringe FLUSH PRN (21:26)
[2023-11-30 22:15] LABS: BASOPHILS ABSOLUTE AUTO 0.04 K/uL (0.00-0.20); BASOPHILS PERCENT AUTO 0.4 % (0.0-1.0); EOSINOPHILS ABSOLUTE AUTO 0.37 K/uL (0.00-0.45); EOSINOPHILS PERCENT AUTO 4.1 % (0.0-6.0); HEMATOCRIT 37.6 % (37.0-47.0); HEMOGLOBIN 12.3 g/dL (12.0-16.0); IMMATURE GRAN ABSOLUTE AUTO 0.04 K/uL (0.00-0.05); IMMATURE GRAN PERCENT AUTO 0.4 % (0.0-0.4); LYMPHOCYTES ABSOLUTE AUTO 2.89 K/uL (1.00-4.80); LYMPHOCYTES PERCENT AUTO 31.7 % (24.0-44.0); MEAN CORPUSCULAR HEMOGLOBIN 28.5 pg (28.0-32.0); MEAN CORPUSCULAR HGB CONC 32.7 g/dL (32.0-36.0); MEAN CORPUSCULAR VOLUME 87.2 fL (83.0-99.0); MEAN PLATELET VOLUME 9.8 fL (9.4-12.3); MONOCYTES PERCENT AUTO 13.2 % (0.0-8.0); NEUTROPHILS ABSOLUTE AUTO 4.58 K/uL (1.80-7.70); NEUTROPHILS PERCENT AUTO 50.2 % (41.0-71.0); PLATELET COUNT,PLT 283 K/uL (150-400); RED BLOOD CELL COUNT 4.31 M/uL (4.10-5.30); WHITE BLOOD CELL COUNT,WBC 9.12 K/uL (3.9-11.3)
[2023-11-30 22:40] LABS: LACTIC ACID 0.4 mmol/L (0.4-2.0)
[2023-11-30 23:00] LABS: A/G RATIO 0.7 (0.9-1.6); BILIRUBIN TOTAL 0.2 mg/dL (0.2-1.0); CALCIUM 9.1 mg/dL (8.5-10.1); CARBON DIOXIDE,CO2 25.7 mmol/L (21.0-32.0); EST CRCL DRUG DOSING (CG) 82.75 mL/min; POTASSIUM,K 4.2 mmol/L (3.5-5.1); PROTEIN TOTAL,TP 7.1 g/dL (6.4-8.2)
[2023-12-01 00:49] VITALS: BP 113/77; PULSE 87
== END 2023-12-01 00:51 | disposition home or self-care (01) ==
LOC: MW.ED 20:12
DX: L03.115 Cellulitis of right lower limb (principal); F11.10 Opioid abuse, uncomplicated; E10.9 Type 1 diabetes mellitus without complications; Z79.899 Other long term (current) drug therapy; Z79.4 Long term (current) use of insulin; Z91.030 Bee allergy status; Z88.5 Allergy status to narcotic agent; Z88.0 Allergy status to penicillin; Z75.8 Other problems related to medical facilities and other health care; Z88.2 Allergy status to sulfonamides; Z91.013 Allergy to seafood
CPT/HCPCS: 36415; 71045; 71045-26; 80053; 83605; 83880; 85025; 87040; 93971-26-RT; 93971-RT; 99284; 99285

== ENCOUNTER 2024-03-12 23:18 | Emergency (ER) | payer MEDICAID ==
[2024-03-13 00:10] LABS: APPEARANCE,URINE SLT CLOUDY; BILIRUBIN,URINE NEGATIVE (NEGATIVE); COLOR,URINE YELLOW; GLUCOSE,URINE NEGATIVE (NEGATIVE); KETONES,URINE NEGATIVE (NEGATIVE); LEUKOCYTE ESTERASE,URINE SMALL (NEGATIVE); NITRITE,URINE POSITIVE (NEGATIVE); OCCULT BLOOD,URINE NEGATIVE (NEGATIVE); PROTEIN,URINE NEGATIVE (NEGATIVE); UROBILINOGEN,URINE 0.2 EU/dL (<2.0)
[2024-03-13 00:30] LABS: AMORPHOUS SEDIMENT,URINE FEW (NEGATIVE); BACTERIA,URINE FEW (NEGATIVE); EPITHELIAL CELLS,URINE FEW (NONE-FEW); RBC,URINE 0-2 (0-2/HPF)
[2024-03-13 00:57] VITALS: BP 119/57; PULSE 87
== END 2024-03-13 00:58 | disposition home or self-care (01) ==
LOC: MW.ED 23:18
DX: N30.00 Acute cystitis without hematuria (principal); E10.9 Type 1 diabetes mellitus without complications; Z76.0 Encounter for issue of repeat prescription; Z87.440 Personal history of urinary (tract) infections; Z88.0 Allergy status to penicillin; Z88.2 Allergy status to sulfonamides; Z91.030 Bee allergy status; Z91.041 Radiographic dye allergy status; Z91.013 Allergy to seafood; Z88.8 Allergy status to other drugs, medicaments and biological substances; Z79.4 Long term (current) use of insulin
CPT/HCPCS: 81001; 81025; 99283

== ENCOUNTER 2024-03-21 06:57 | Emergency (ER) | payer MEDICAID ==
[2024-03-21] MEDS: Benzocaine 20% Topical Spray UD MUCMEM ONE (07:37)
[2024-03-21] MEDS: Lidocaine 2% Viscous Solution 15 ML UD PO ONE (07:37)
[2024-03-21 08:45] VITALS: BP 146/93; PULSE 89
== END 2024-03-21 08:24 | disposition home or self-care (01) ==
LOC: MW.ED 06:57
DX: K08.89 Other specified disorders of teeth and supporting structures (principal); I25.2 Old myocardial infarction; E10.9 Type 1 diabetes mellitus without complications; Z88.5 Allergy status to narcotic agent; Z88.0 Allergy status to penicillin; Z88.2 Allergy status to sulfonamides; Z88.8 Allergy status to other drugs, medicaments and biological substances; Z91.041 Radiographic dye allergy status; Z91.030 Bee allergy status; Z91.013 Allergy to seafood; Z79.4 Long term (current) use of insulin; Z79.899 Other long term (current) drug therapy; Z75.8 Other problems related to medical facilities and other health care
CPT/HCPCS: 99282; A9270

== ENCOUNTER 2024-07-10 14:29 | Emergency (ER) | payer MEDICAID ==
[2024-07-10 14:59] VITALS: BP 154/97; PULSE 88
[2024-07-10 15:38] LABS: APPEARANCE,URINE CLEAR; BILIRUBIN,URINE NEGATIVE (NEGATIVE); COLOR,URINE YELLOW; GLUCOSE,URINE NEGATIVE (NEGATIVE); KETONES,URINE NEGATIVE (NEGATIVE); LEUKOCYTE ESTERASE,URINE NEGATIVE (NEGATIVE); NITRITE,URINE POSITIVE (NEGATIVE); OCCULT BLOOD,URINE NEGATIVE (NEGATIVE); PROTEIN,URINE NEGATIVE (NEGATIVE)
[2024-07-10 16:21] LABS: BACTERIA,URINE 3+ (NEGATIVE); EPITHELIAL CELLS,URINE FEW (NONE-FEW); RBC,URINE NONE SEEN (0-2/HPF); WBC,URINE NONE SEEN (0-5/HPF)
== END 2024-07-10 16:51 | disposition home or self-care (01) ==
LOC: MW.ED 14:29
DX: N39.0 Urinary tract infection, site not specified (principal); Z76.0 Encounter for issue of repeat prescription; I25.2 Old myocardial infarction; E10.9 Type 1 diabetes mellitus without complications; Z91.030 Bee allergy status; Z91.041 Radiographic dye allergy status; Z91.013 Allergy to seafood; Z88.2 Allergy status to sulfonamides; Z88.0 Allergy status to penicillin; Z88.8 Allergy status to other drugs, medicaments and biological substances; Z79.4 Long term (current) use of insulin; Z79.899 Other long term (current) drug therapy
CPT/HCPCS: 81001; 82947; 87086; 87088; 87186; 99283

== ENCOUNTER 2024-11-11 11:29 | Emergency (ER) | payer MEDICAID ==
[2024-11-11 11:39] VITALS: BP 123/89; PULSE 94
== END 2024-11-11 12:12 | disposition home or self-care (01) ==
LOC: MW.ED 11:29
DX: L03.116 Cellulitis of left lower limb (principal); E10.9 Type 1 diabetes mellitus without complications; Z88.5 Allergy status to narcotic agent; Z88.0 Allergy status to penicillin; Z79.4 Long term (current) use of insulin; Z86.16 Personal history of COVID-19; Z76.0 Encounter for issue of repeat prescription
CPT/HCPCS: 99283

== ENCOUNTER 2025-02-06 05:22 | Emergency (ER) | payer MEDICAID ==
[2025-02-06] MEDS ORDERED: Sodium Chloride 0.9% 2.5 ML Syringe FLUSH PRN (05:47)
[2025-02-06] MEDS ORDERED: Sodium Chloride 0.9% 10 ML Syringe FLUSH PRN (05:47)
[2025-02-06 06:04] LABS: BASOPHILS ABSOLUTE AUTO 0.03 K/uL (0.00-0.20); BASOPHILS PERCENT AUTO 0.2 % (0.0-1.0); EOSINOPHILS ABSOLUTE AUTO 0.19 K/uL (0.00-0.45); EOSINOPHILS PERCENT AUTO 1.4 % (0.0-6.0); IMMATURE GRAN ABSOLUTE AUTO 0.05 K/uL (0.00-0.05); IMMATURE GRAN PERCENT AUTO 0.4 % (0.0-0.4); LYMPHOCYTES ABSOLUTE AUTO 1.23 K/uL (1.00-4.80); LYMPHOCYTES PERCENT AUTO 9.2 % (24.0-44.0); MEAN PLATELET VOLUME 9.8 fL (9.4-12.3); MONOCYTES ABSOLUTE AUTO 1.42 K/uL (0.00-0.80); MONOCYTES PERCENT AUTO 10.6 % (0.0-8.0); NEUTROPHILS ABSOLUTE AUTO 10.49 K/uL (1.80-7.70); NEUTROPHILS PERCENT AUTO 78.2 % (41.0-71.0); NRBC ABSOLUTE 0.00 K/uL (0.00-0.02); NRBC PERCENT 0.0 /100WBC (0.0-0.2); PLATELET COUNT,PLT 248 K/uL (150-400); RED BLOOD CELL COUNT 4.28 M/uL (4.10-5.30); WHITE BLOOD CELL COUNT,WBC 13.41 K/uL (3.9-11.3)
[2025-02-06 06:35] LABS: A/G RATIO 0.8 (0.9-1.6); ALANINE AMINOTRANSFERASE,ALT 20 IU/L (14-63); ASPARTATE AMNIOTRANSFERASE,AST 15 IU/L (15-37); BILIRUBIN TOTAL 0.3 mg/dL (0.2-1.0); BLOOD UREA NITROGEN,BUN 8 mg/dL (7.0-18.0); CARBON DIOXIDE,CO2 23.8 mmol/L (21.0-32.0); CHLORIDE,CL 105 mmol/L (98-107); CREATININE 0.9 mg/dL (0.6-1.0); EST CRCL DRUG DOSING (CG) 93.01 mL/min; GLUCOSE RANDOM 101 mg/dL (74-106); POTASSIUM,K 4.2 mmol/L (3.5-5.1); PRO B-TYPE NATRIUR PEPT,BNPPRO 25 pg/mL (0-125); PROTEIN TOTAL,TP 7.1 g/dL (6.4-8.2); SODIUM,NA 137 mmol/L (136-145)
[2025-02-06 06:36] LABS: ESTIMATED GFR 81 mL/min (>60)
[2025-02-06 06:40] VITALS: BP 111/79; PULSE 102
== END 2025-02-06 06:52 | disposition home or self-care (01) ==
LOC: MW.ED 05:22
DX: J20.9 Acute bronchitis, unspecified (principal); I25.2 Old myocardial infarction; E11.9 Type 2 diabetes mellitus without complications; F17.210 Nicotine dependence, cigarettes, uncomplicated; Z86.16 Personal history of COVID-19; Z86.59 Personal history of other mental and behavioral disorders; Z79.4 Long term (current) use of insulin; Z91.030 Bee allergy status; Z88.5 Allergy status to narcotic agent; Z91.041 Radiographic dye allergy status; Z88.0 Allergy status to penicillin; Z91.013 Allergy to seafood; Z88.2 Allergy status to sulfonamides; Z88.1 Allergy status to other antibiotic agents
CPT/HCPCS: 36415; 71045; 80053; 82947; 83690; 83735; 83880; 84484; 85025; 87428; 93005; 96360; 99285; J7030; Q0144; 99283; A9270-GY